=== PATIENT | female | born 1960 | race Caucasian/White ===

== ENCOUNTER 2016-03-23 09:16 | Emergency (ER) | payer MEDICAID ==
[2016-03-23] MEDS ORDERED: LIDOCAINE VISCOUS 2% 15 ML UDC MM STA (09:41)
[2016-03-23] MEDS ORDERED: FAMOTIDINE 20 MG TABLET PO STA (09:41)
[2016-03-23] MEDS ORDERED: IPRATROPIUM/ALBUTEROL 3 ML NEB INH STA (09:41)
[2016-03-23] MEDS ORDERED: SUCRALFATE 1 GM/10 ML UDC PO STA (09:41)
[2016-03-23] MEDS ORDERED: MAG HYDROX/AL HYDROX/SIMETH 30 ML UDC PO STA (09:41)
[2016-03-23] MEDS ORDERED: MAG HYDROX/AL HYDROX/SIMETH 30 ML UDC ONE (09:50)
[2016-03-23] MEDS ORDERED: FAMOTIDINE 20 MG TABLET ONE (09:50)
[2016-03-23] MEDS ORDERED: LIDOCAINE VISCOUS 2% 15 ML UDC MM ONE (09:50)
[2016-03-23] MEDS ORDERED: SUCRALFATE 1 GM/10 ML UDC ONE (09:50)
[2016-03-23] MEDS ORDERED: IPRATROPIUM/ALBUTEROL 3 ML NEB INH ONE (09:52)
[2016-03-23] MEDS ORDERED: LORazepam 2 MG/ML SYRINGE IVP STA (10:37)
[2016-03-23] MEDS ORDERED: SODIUM CHLORIDE 0.9% 1,000 ML IV ONE (10:38)
[2016-03-23] MEDS ORDERED: LORazepam 2 MG/ML SYRINGE ONE (10:52)
[2016-03-23] MEDS ORDERED: KETOROLAC 60 MG/2 ML VIAL IVP STA (11:46)
[2016-03-23] MEDS ORDERED: KETOROLAC 30 MG/ML VIAL ONE (11:49)
[2016-03-23] MEDS ORDERED: chlordiazePOXIDE 25 MG CAPSULE PO STA (12:02)
[2016-03-23] MEDS ORDERED: chlordiazePOXIDE 25 MG CAPSULE PO ONE (12:06)
[2016-03-23] MEDS ORDERED: IOPAMIDOL-300 100 ML VIAL IVP ONE (12:42)
== END 2016-03-23 13:40 | disposition home or self-care (01) ==
DX: R07.89 Other chest pain (principal); Z79.84 Long term (current) use of oral hypoglycemic drugs; F17.200 Nicotine dependence, unspecified, uncomplicated; F10.230 Alcohol dependence with withdrawal, uncomplicated; E11.9 Type 2 diabetes mellitus without complications
CPT/HCPCS: 36415; 71010; 71275; 80053; 80320; 83690; 84484; 85025; 93005; 93010; 94640; 96361; 96374; 96375; 99284; 99285; A9270; J2060; J7620; Q9967

== ENCOUNTER 2016-03-25 10:20 | Outpatient (CLI) | payer MEDICAID | END 2016-03-25 10:21 | disposition home or self-care (01) | DX: F10.20 Alcohol dependence, uncomplicated (principal); E11.9 Type 2 diabetes mellitus without complications ==

== ENCOUNTER 2016-05-20 11:00 | Outpatient (CLI) | payer MEDICAID | END 2016-05-20 11:01 | disposition home or self-care (01) | DX: A04.7 Enterocolitis due to Clostridium difficile (principal); R19.7 Diarrhea, unspecified ==

== ENCOUNTER 2016-08-11 12:27 | Emergency (ER) | payer MEDICAID ==
[2016-08-11] MEDS ORDERED: THIAMINE 100 MG TABLET PO STA (12:43)
[2016-08-11] MEDS ORDERED: ONDANSETRON ODT 4 MG TABLET TL STA (12:43)
--- NOTE | 2016-08-11 12:47 | ED Physician Documentation ---
History of Present Illness - Stated complaint Stated Complaint: L EYE INJ - Chief complaint Chief Complaint: General - History obtained from History obtained from: Patient - History of Present Illness Timing: Other (This is a 55-year-old woman with a history of alcoholism. She quit drinking 2 days ago, 3 days ago she was at her mom's house and fell, she doesn't recall the injury too much but she has a periorbital injury on the left and complains of facial numbness in the periorbital area and upper lip on the left. She is not quite sure of the timing of the numbness, i.e. she doesn't know whether it started immediately after the accident or had gradual onset later. She does complain of alcohol withdrawal shakes but denies headache, hallucinations. She vomited yesterday after taking naltrexone but she hasn't had any hematemesis or melena.) Review of Systems Ten Systems: 10 systems reviewed and negative Constitutional: reports: Fatigue (from poor sleep). 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, Other - Present Medications Home Medications: Ambulatory Orders Medication Instructions Recorded Confirmed Lisinopril [Zestril] 5 mg PO DAILY 11/08/12 03/23/16 Metformin HCl [Glucophage Xr] 1,000 mg PO BID 11/08/12 03/23/16 glipiZIDE [Glucotrol] 10 mg PO BID 11/08/12 03/23/16 Empagliflozin [Jardiance] 10 mg PO DAILY 03/23/16 03/23/16 chlordiazePOXIDE [Librium] 25 mg PO Q6H PRN #10 capsule 03/23/16 Lorazepam [Ativan] 1 mg PO TID PRN #5 tablet 08/11/16 - Allergies Allergies/Adverse Reactions: Allergies Allergy/AdvReac Type Severity Reaction Status Date / Time No Known Drug Allergies Allergy Verified 08/11/16 12:36 - Social History Does the pt smoke?: Yes Smoking Status: Current every day smoker Does the pt drink ETOH?: Yes Does the pt have substance abuse?: No - Immunizations Immunizations are current?: Yes - POLST Patient has POLST: No PD ED PE NORMAL - Vitals Vital signs reviewed: Yes - General General: Alert and oriented X 3, No acute distress, Other (Slightly shaky) - HEENT HEENT: Other (She has very mild scleral icterus but is not overtly jaundice. She has infraorbital bruising and tenderness on the left with diminished but not absent sensation over the distribution of the infraorbital nerve, there is no diminished sensation of the forehead or lateral face. No hemotympanum or evidence of basilar skull fracture. 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, No motor deficit, No sensory deficit, Normal speech - Psych Psych: Normal mood, Normal affect Results - Vitals Vitals: Vital Signs - 24 hr 08/11/16 12:33 Temperature 36.5 C Heart Rate 116 H Respiratory 18 Rate Blood Pressure 161/104 H O2 Saturation 98 Oxygen O2 Source Room air - Rads (name of study) CT facial bones Radiology: EMP read contemporaneously (Comminuted and minimally displaced left orbital floor blowout-type fracture with some soft tissue material protruding through the fracture site, no CT evidence for entrapment.) PD MEDICAL DECISION MAKING - ED course ED course: 55-year-old alcoholic presents with facial trauma and found to have inferior orbital wall fracture on CT and evidence of inferior orbital nerve injury on exam. Case was discussed by phone with Dr. Vipul Ybarra, OMFS at [facility] who felt that she did not need to be seen emergently but they will see her in the clinic. Nasal and sinus precautions were discussed with the patient. They did not recommend antibiotics at this juncture. Departure - Departure Disposition: 01 Home, Self Care Clinical Impression: Orbital floor fracture Qualifiers: Encounter type: initial encounter Fracture type: closed Laterality: left Qualified Code(s): S02.32XA - Fracture of orbital floor, left side, initial encounter for closed fracture Alcohol withdrawal Qualifiers: Complication of substance-induced condition: uncomplicated Qualified Code(s): F10.230 - Alcohol dependence with withdrawal, uncomplicated Condition: Good Instructions: ED Withdrawal Alcohol Prescriptions: Lorazepam [Ativan] 1 mg PO TID PRN #5 tablet PRN Reason: Anxiety Comments: Case was discussed with Dr. Ybarra at [facility], they will call you to arrange a followup appointment with them. If you don't hear from them by Monday, call their office, . Your blood pressure was elevated today on check in to the emergency department. This does not mean that you have hypertension, it is a common phenomenon to check into the emergency department and have elevated blood pressure. I recommend that you see your primary care physician within the week to have it rechecked when you're feeling better.
[2016-08-11] MEDS ORDERED: ONDANSETRON ODT 4 MG TABLET ONE (13:05)
[2016-08-11] MEDS ORDERED: THIAMINE 100 MG TABLET PO ONE (13:05)
--- NOTE | 2016-08-11 13:40 | CT Preliminary Report ---
Exam: CT Facial Bones W/O IMPRESSION: 1. Comminuted minimally displaced left orbital floor blowout type fracture with some adjacent soft ti ssue material protruding through the fracture site. No CT evidence for entrapment of the inferior rec tus. 2. No other fractures. 3. Small amount of soft tissue calcification anterior to the mentum of the mandible, more on the righ t, this is of uncertain consequence. No donor site is identified. [facility] SITE ID: [id number]
--- NOTE | 2016-08-11 13:52 | CT Report ---
EXAM: CT MAXILLOFACIAL WITHOUT CONTRAST EXAM DATE: 08/11/2016 01:07 PM. CLINICAL HISTORY: Left facial injury, orbital fracture? COMPARISONS: None. TECHNIQUE: Thin-section axial images were acquired of the face without contrast. Post-processing: Cor onal and sagittal reformats. Other: None. In accordance with CT protocol optimization, one or more of the following dose reduction techniques w ere utilized for this exam: automated exposure control, adjustment of mA and/or KV based on patient s ize, or use of iterative reconstructive technique. FINDINGS: Bones: Comminuted minimally displaced left orbital floor fracture with some adjacent soft tissue mate rial at the fracture site. No CT evidence for entrapment of the inferior rectus. Please see series 6 image 37. Infraorbital rim, lateral and superior orbital rims, and zygomatic arch have a normal appea cristian. Right orbit, pterygoid plates, and hard palate have a normal appearance. Small amount of soft tissue calcification is seen anterior to the mentum of the mandible on the right side greater than the left. No cortical defects. Temporomandibular Joints: The temporomandibular joints are symmetric and normally located. Sinuses: Normal. No mucosal thickening or fluid levels. Other: None. IMPRESSION: 1. Comminuted minimally displaced left orbital floor blowout-type fracture with some adjacent soft ti ssue material protruding through the fracture site. No CT evidence for entrapment of the inferior rec tus. 2. No other fractures. 3. Small amount of soft tissue calcification anterior to the mentum of the mandible, more on the righ t. This is of uncertain consequence. No donor site is identified. [facility] Referring Provider Line: [phone] SITE ID: [id number]
[2016-08-11 14:36] VITALS: BP 133/95
== END 2016-08-11 14:37 | disposition home or self-care (01) ==
LOC: ED 12:27
DX: S02.32XA Fracture of orbital floor, left side, initial encounter for closed fracture (principal); W01.0XXA Fall on same level from slipping, tripping and stumbling without subsequent striking against object, initial encounter; F10.239 Alcohol dependence with withdrawal, unspecified; I10 Essential (primary) hypertension; E11.9 Type 2 diabetes mellitus without complications; Z79.84 Long term (current) use of oral hypoglycemic drugs; F17.200 Nicotine dependence, unspecified, uncomplicated
CPT/HCPCS: 70486; 99283; 99284; A9270; Q0162

== ENCOUNTER 2017-01-19 06:02 | Emergency (ER) | payer MEDICAID ==
--- NOTE | 2017-01-19 06:21 | ED Physician Documentation ---
PD HPI BACK PAIN - Stated complaint Stated Complaint: BACK/SHOULDER PX - Chief complaint Chief Complaint: Trauma Ch/Bk - History obtained from History obtained from: Patient - History of Present Illness Timing - onset: How many days ago (2) Timing - details: Abrupt onset Pain level now: 5 Location: Left Quality: Pain Associated symptoms: No: Weakness, Numbness Improves with: Rest Worsened by: Movement, Palpation Recently seen: Not recently seen - Additional information Additional information: tripped and fell 2 days ago while hiking on a trail, sudden onset left shoulder pain and left upper back pain. Presents at this time due to gradually worsening pain which kept her from sleeping all night. Review of Systems Cardiac: denies: Chest pain / pressure Respiratory: denies: Dyspnea, Cough GI: denies: Abdominal Pain Musculoskeletal: reports: Back pain, Joint pain. 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, Other - Present Medications Home Medications: Ambulatory Orders Medication Instructions Recorded Confirmed Lisinopril [Zestril] 5 mg PO DAILY 11/08/12 03/23/16 Metformin HCl [Glucophage Xr] 1,000 mg PO BID 11/08/12 03/23/16 glipiZIDE [Glucotrol] 10 mg PO BID 11/08/12 03/23/16 Empagliflozin [Jardiance] 10 mg PO DAILY 03/23/16 03/23/16 chlordiazePOXIDE [Librium] 25 mg PO Q6H PRN #10 capsule 03/23/16 Lorazepam [Ativan] 1 mg PO TID PRN #5 tablet 08/11/16 Cyclobenzaprine [Flexeril] 10 mg PO TID PRN #20 tablet 01/19/17 oxyCODONE [Roxicodone] 5 mg PO Q6H PRN #14 tablet 01/19/17 - Allergies Allergies/Adverse Reactions: Allergies Allergy/AdvReac Type Severity Reaction Status Date / Time acetaminophen [From Vicodin] Allergy Hives Verified 01/19/17 06:10 hydrocodone [From Vicodin] Allergy Hives Verified 01/19/17 06:10 - Social History Does the pt smoke?: Yes Smoking Status: Current every day smoker Does the pt drink ETOH?: Yes Does the pt have substance abuse?: No - Immunizations Immunizations are current?: No Immunizations: TDAP current <10years - POLST Patient has POLST: No PD ED PE NORMAL - Vitals Vital signs reviewed: Yes - General General: Alert and oriented X 3, No acute distress (NAD at rest, but appears to be uncomfortable due to pain with movement involving upper back and/or left shoulder), Well developed/nourished - Neck Neck: No bony TTP - Respiratory Respiratory: No respiratory distress, Clear bilaterally - Back Back: No spinal TTP, Other (tender to palpation left parathoracic region) - Derm Derm: Normal color, Warm and dry PD ED PE EXPANDED - Extremities Extremities: Tenderness, Limited ROM, Left shoulder Results - Vitals Vitals: Vital Signs - 24 hr 01/19/17 01/19/17 06:04 08:05 Temperature 36.0 C L 36.5 C Heart Rate 127 H 107 H Respiratory 16 15 Rate Blood Pressure 130/91 H 135/97 H O2 Saturation 97 99 Oxygen O2 Source Room air - Rads (name of study) chest xray Radiology: Prelim report reviewed, See rad report left shoulder xrays Radiology: Prelim report reviewed, See rad report PD MEDICAL DECISION MAKING - ED course Complexity details: reviewed results, re-evaluated patient, considered differential, d/w patient Departure - Departure Disposition: 01 Home, Self Care Clinical Impression: Shoulder sprain, Contusion of chest wall Condition: Good Instructions: ED Contusion Chest Wall, ED Sprain Shoulder Follow-Up: Theresa Sharp DO [Primary Care Provider] - Prescriptions: Cyclobenzaprine [Flexeril] 10 mg PO TID PRN #20 tablet PRN Reason: Spasms oxyCODONE [Roxicodone] 5 mg PO Q6H PRN #14 tablet PRN Reason: Pain Discharge Date/Time: 01/19/17 08:09
[2017-01-19] MEDS ORDERED: oxyCODONE 5 MG TABLET PO STA ×2 (06:37→07:55)
[2017-01-19] MEDS ORDERED: CYCLOBENZAPRINE 10 MG TABLET PO STA (06:41)
[2017-01-19] MEDS ORDERED: CYCLOBENZAPRINE 10 MG TABLET PO ONE (06:47)
[2017-01-19] MEDS ORDERED: oxyCODONE 5 MG TABLET ONE ×2 (06:47→08:05)
--- NOTE | 2017-01-19 07:17 | XRAY Preliminary Report ---
Exam: XR SHOULDER 3 VIEW LT IMPRESSION: 1. No acute abnormality seen in the shoulder. [facility] SITE ID: [id number]
--- NOTE | 2017-01-19 07:20 | XRAY Preliminary Report ---
Exam: XR CHEST 2 VIEW PA/LAT IMPRESSION: 1. No acute cardiopulmonary abnormality. 2. Old left rib fractures. [facility] SITE ID: [id number]
--- NOTE | 2017-01-19 07:20 | XRAY Report ---
EXAM: LEFT SHOULDER RADIOGRAPHY EXAM DATE: 01/19/2017 07:09 AM. CLINICAL HISTORY: Pain after injury. COMPARISON: None. TECHNIQUE: 3 views. FINDINGS: Bones: No acute fracture seen. Old rib fractures. Joints: No dislocation. Joint spaces appear intact. Soft tissues: Visualized hemithorax is unremarkable. IMPRESSION: 1. No acute abnormality seen in the shoulder. [facility] Referring Provider Line: [phone] SITE ID: [id number]
--- NOTE | 2017-01-19 07:22 | XRAY Report ---
EXAM: CHEST RADIOGRAPHY EXAM DATE: 01/19/2017 07:09 AM. CLINICAL HISTORY: Fall, left back pain. COMPARISON: 03/23/2016. TECHNIQUE: 2 views. FINDINGS: Lungs/Pleura: No alveolar consolidation or pleural effusion seen. No definite pneumothorax. Mediastinum: Heart and mediastinal contours are unremarkable. Other: Old left rib fractures. IMPRESSION: 1. No acute cardiopulmonary abnormality. 2. Old left rib fractures. [facility] Referring Provider Line: [phone] SITE ID: [id number]
[2017-01-19 08:06] VITALS: BP 135/97
== END 2017-01-19 08:09 | disposition home or self-care (01) ==
LOC: ED 06:02
DX: S43.402A Unspecified sprain of left shoulder joint, initial encounter (principal); S20.222A Contusion of left back wall of thorax, initial encounter; W01.0XXA Fall on same level from slipping, tripping and stumbling without subsequent striking against object, initial encounter; Y93.01 Activity, walking, marching and hiking; Y92.821 Forest as the place of occurrence of the external cause; I10 Essential (primary) hypertension; E11.9 Type 2 diabetes mellitus without complications; Z79.84 Long term (current) use of oral hypoglycemic drugs; F17.200 Nicotine dependence, unspecified, uncomplicated
CPT/HCPCS: 71020; 73030; 99283; 99284; A9270

== ENCOUNTER 2017-02-06 20:11 | Outpatient (CLI) | payer MEDICAID | END 2017-02-06 20:12 | disposition critical access hospital (66) | LOC: EMS 20:11 | PROVIDERS: ATTEND Surgery | DX: R42 Dizziness and giddiness (principal) | CPT/HCPCS: A0425; A0427 ==

== ENCOUNTER 2017-02-06 20:22 | Emergency (ER) | payer MEDICAID ==
--- NOTE | 2017-02-06 20:52 | ED Physician Documentation ---
PD HPI SYNCOPE - Stated complaint Stated Complaint: GLF - CHIN LAC - Chief complaint Chief Complaint: General - History obtained from History obtained from: Patient - History of Present Illness Witnessed: Unwitnessed Timing - onset: Today (she got up from sitting and felt lightheaded then fainted. Struck left face as she fell. Was just out briefly then awoke, spouse in next room heard her.) Preceding symptoms: Light headed. No: Headache, Chest pain, Abdominal pain, Nausea / vomiting Associated symptoms: No: Seizure, Incontinant of urine Contributing factors: Decreased PO intake (had not had as much to drink as usual today.), Just stood up, Other (had had a few drinks today, and had been without alcohol for 2-3 weeks.). No: Recent med change Injury occurred: Fell, Head injury (left side of face, and has some left headache as well.) Similar symptoms before: No diagnosis (has had some lightheaded episodes and near fainting/fainting a few times in the past couple of weeks. These were not with exertion per se.) Recently seen: Not recently seen Review of Systems Constitutional: denies: Fever, Chills Nose: denies: Rhinorrhea / runny nose, Congestion Throat: denies: Sore throat Cardiac: denies: Chest pain / pressure, Palpitations Respiratory: denies: Dyspnea, Cough, Wheezing GI: denies: Abdominal Pain, Nausea, Vomiting, Diarrhea Skin: denies: Rash, Lesions, Abrasion (s), Laceration (s) Musculoskeletal: denies: Neck pain, Back pain PD PAST MEDICAL HISTORY - Past Medical History Cardiovascular: Hypertension Respiratory: None Neuro: None Endocrine/Autoimmune: Type 2 diabetes GI: None : None HEENT: None Psych: None Musculoskeletal: Osteoporosis, Chronic back pain Derm: None - Past Surgical History Past Surgical History: Yes 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, Other - Present Medications Home Medications: Ambulatory Orders Medication Instructions Recorded Confirmed Lisinopril [Zestril] 5 mg PO DAILY 11/08/12 03/23/16 Metformin HCl [Glucophage Xr] 1,000 mg PO BID 11/08/12 02/06/17 glipiZIDE [Glucotrol] 10 mg PO BID 11/08/12 02/06/17 Empagliflozin [Jardiance] 10 mg PO DAILY 03/23/16 02/06/17 Potassium Chloride 10 meq PO DAILY #20 tablet.er 02/06/17 - Allergies Allergies/Adverse Reactions: Allergies Allergy/AdvReac Type Severity Reaction Status Date / Time acetaminophen [From Vicodin] Allergy Hives Verified 01/19/17 06:10 hydrocodone [From Vicodin] Allergy Hives Verified 02/06/17 20:26 - Social History Does the pt smoke?: Yes Smoking Status: Current every day smoker Does the pt drink ETOH?: Yes Does the pt have substance abuse?: No - Immunizations Immunizations are current?: No Immunizations: TDAP current <10years - POLST Patient has POLST: No PD ED PE NORMAL - Vitals Vital signs reviewed: Yes - General General: Alert and oriented X 3, No acute distress, Well developed/nourished, Other (left periorbital area with some swelling and mild bruising. No obvious bony deformity. ) - HEENT HEENT: PERRL, EOMI (without diplopia. 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 No: ST elevation c/w ischemia, ST depression - Labs Labs: Laboratory Tests 02/06/17 02/06/17 02/06/17 20:54 20:54 20:54 WBC 9.7 RBC 4.39 Hgb 13.9 Hct 42.0 MCV 95.8 MCH 31.8 H MCHC 33.2 RDW 14.3 Plt Count 345 MPV 7.3 L Neut # 7.6 H Lymph # 1.4 L [place] # 0.6 Eos # 0.1 Baso # 0.1 Absolute Nucleated RBC 0.00 Nucleated RBC % 0.0 Sodium 137 Potassium 2.8 L Chloride 95 L Carbon Dioxide 21 Anion Gap 21.0 H BUN 16 Creatinine 1.1 H Estimated GFR (MDRD) 51 L Glucose 172 H Calcium 9.8 Magnesium 1.8 Total Bilirubin 0.5 AST 29 ALT 18 Alkaline Phosphatase 56 Total Protein 7.1 Albumin 4.2 Globulin 2.9 Albumin/Globulin Ratio 1.4 Lipase 30 TSH Ethyl Alcohol 110.3 02/06/17 20:54 WBC RBC Hgb Hct MCV MCH MCHC RDW Plt Count MPV Neut # Lymph # [place] # Eos # Baso # Absolute Nucleated RBC Nucleated RBC % Sodium Potassium Chloride Carbon Dioxide Anion Gap BUN Creatinine Estimated GFR (MDRD) Glucose Calcium Magnesium Total Bilirubin AST ALT Alkaline Phosphatase Total Protein Albumin Globulin Albumin/Globulin Ratio Lipase TSH 2.08 Ethyl Alcohol - Rads (name of study) face and head CT Radiology: Prelim report reviewed (no acute fractures nor bleeding.) PD MEDICAL DECISION MAKING - ED course Complexity details: reviewed results (does have low potassium, could account for some symptoms of weakness/lightheaded. ), considered differential, d/w patient Departure - Departure Disposition: 01 Home, Self Care Clinical Impression: Hypokalemia Syncope Qualifiers: Syncope type: unspecified Qualified Code(s): R55 - Syncope and collapse Facial contusion Qualifiers: Encounter type: initial encounter Qualified Code(s): S00.83XA - Contusion of other part of head, initial encounter Chin laceration Qualifiers: Encounter type: initial encounter Qualified Code(s): S01.81XA - Laceration without foreign body of other part of head, initial encounter Condition: Stable Record reviewed to determine appropriate education?: Yes Instructions: ED Potassium Deficiency, ED Laceration Facial Skin Glue, ED Fainting Unkn Cause Follow-Up: Theresa Sharp DO [Primary Care Provider] - Prescriptions: Potassium Chloride 10 meq PO DAILY #20 tablet.er Comments: Stay well-hydrated. Minimal to no alcohol use. Increase potassium in your diet and take a potassium supplement daily for the next couple of weeks. I think your fainting was related to blood pressure not responding to change in position from hydration and low potassium. Recheck if recurring episodes as these are corrected. The tape on the chin laceration should fall off on its own after for 5 days and that should be sufficient for the wound to stay together. Tylenol or ibuprofen if needed for fevers and pains. The rest of the bruising and swelling should decrease over a few days. Follow-up with your primary care in about a week, call for an appointment. Discharge Date/Time: 02/06/17 23:56
[2017-02-06 21:11] LABS: BASOPHILS # (AUTO) 0.1 10^3/uL (0.0-0.1); BASOPHILS % (AUTO) 0.7 %; EOSINOPHILS # (AUTO) 0.1 10^3/uL (0.0-0.7); EOSINOPHILS % (AUTO) 0.9 %; HGB - HEMOGLOBIN 13.9 g/dL (12.0-16.0); LYMPHOCYTES # (AUTO) 1.4 10^3/uL (1.5-3.5); LYMPHOCYTES % (AUTO) 14.1 %; MEAN CORPUSCULAR HEMOGLOBIN 31.8 pg (27.0-31.0); MEAN CORPUSCULAR HGB CONC 33.2 g/dL (32.0-36.0); MEAN CORPUSCULAR VOLUME 95.8 fL (81.0-99.0); MEAN PLATELET VOLUME 7.3 fL (7.9-10.8); MONOCYTES # (AUTO) 0.6 10^3/uL (0.0-1.0); MONOCYTES % (AUTO) 6.6 %; NEUTROPHILS # (AUTO) 7.6 10^3/uL (1.5-6.6); NEUTROPHILS % (AUTO) 77.7 %; RED BLOOD COUNT 4.39 10^6/uL (4.20-5.40); RED CELL DISTRIBUTION WIDTH 14.3 % (12.0-15.0); UNCORRECTED WHITE BLOOD COUNT 9.7 x10^3/uL; WHITE BLOOD COUNT 9.7 x10^3/uL (4.8-10.8)
[2017-02-06] MEDS ORDERED: SODIUM CHLORIDE 0.9% 1,000 ML IV ONE (21:31)
[2017-02-06] MEDS ORDERED: IBUPROFEN 600 MG TABLET PO STA (21:32)
[2017-02-06 21:35] LABS: ALBUMIN/GLOBULIN RATIO 1.4 (1.0-2.2); BILIRUBIN,TOTAL 0.5 mg/dL (0.2-1.0); CALCIUM 9.8 mg/dL (8.5-10.3); CREATININE 1.1 mg/dL (0.4-1.0); POTASSIUM 2.8 mmol/L (3.5-5.0); TOTAL PROTEIN 7.1 g/dL (6.7-8.2)
[2017-02-06] MEDS ORDERED: IBUPROFEN 600 MG TABLET PO ONE (21:40)
[2017-02-06 21:43] LABS: MAGNESIUM 1.8 mg/dL (1.7-2.8)
[2017-02-06 21:57] VITALS: BP 127/72
--- NOTE | 2017-02-06 22:06 | CT Preliminary Report ---
Exam: CT HEAD W/O IMPRESSION: 1. No acute intracranial process. 2. Small right parietal scalp laceration without calvarial fracture. [facility] SITE ID: [id number]
--- NOTE | 2017-02-06 22:12 | CT Preliminary Report ---
Exam: CT FACIAL BONES W/O IMPRESSION: 1. No acute facial bone fracture. 2. Chronic fracture of the inferior left orbital wall. [facility] SITE ID: [id number]
--- NOTE | 2017-02-06 22:15 | CT Report ---
EXAM: CT HEAD EXAM DATE: 02/06/2017 09:54 PM. CLINICAL HISTORY: Head pain, fall, syncope. COMPARISON: None. TECHNIQUE: Multiaxial CT images were obtained from the foramen magnum to the vertex. Reformats: Coron al. IV contrast: None. In accordance with CT protocol optimization, one or more of the following dose reduction techniques w ere utilized for this exam: automated exposure control, adjustment of mA and/or KV based on patient s ize, or use of iterative reconstructive technique. FINDINGS: Parenchyma: No intraparenchymal hemorrhage. No evidence of mass, midline shift, or CT findings of inf arction. Starks-white differentiation is distinct. Extraaxial Spaces: Normal for age. No subdural or epidural collections identified. Ventricles: Normal in size and position. Sinuses and Orbits: Imaged paranasal sinuses, orbits, and mastoids show no significant abnormality. Bones: A small right parietal scalp hematoma is noted without an underlying calvarial fracture. IMPRESSION: 1. No acute intracranial process. 2. Small right parietal scalp laceration without calvarial fracture. [facility] Referring Provider Line: [phone] SITE ID: [id number]
--- NOTE | 2017-02-06 22:19 | CT Report ---
EXAM: CT MAXILLOFACIAL WITHOUT CONTRAST EXAM DATE: 02/06/2017 09:55 PM. CLINICAL HISTORY: Facial pain, fall, syncope. COMPARISONS: Facial bone CT from 08/11/2016. TECHNIQUE: Thin-section axial images were acquired of the face without contrast. Post-processing: Cor onal and sagittal reformats. Other: None. In accordance with CT protocol optimization, one or more of the following dose reduction techniques w ere utilized for this exam: automated exposure control, adjustment of mA and/or KV based on patient s ize, or use of iterative reconstructive technique. FINDINGS: Soft Tissue: No mass or fluid collection.The infratemporal fossa and parapharyngeal spaces are unrema rkable. Orbits: No acute intraorbital injury is identified. Bones: No acute facial bone fracture is identified. A now chronic fracture of the inferior left orbit al wall is seen. Temporomandibular Joints: The temporomandibular joints are symmetric and normally located. Sinuses: Normal. No mucosal thickening or fluid levels. IMPRESSION: 1. No acute facial bone fracture. 2. Chronic fracture of the inferior left orbital wall. [facility] Referring Provider Line: [phone] SITE ID: [id number]
[2017-02-06] MEDS ORDERED: POTASSIUM BICARB 25 MEQ TABLET PO STA (22:26)
[2017-02-06] MEDS ORDERED: POTASSIUM CHLOR 10 MEQ/100 ML 10 MEQ/100 ML BAG IV ONE ×2 (22:26→22:34)
[2017-02-06] MEDS ORDERED: POTASSIUM BICARB 25 MEQ TABLET PO ONE (22:40)
== END 2017-02-06 23:56 | disposition home or self-care (01) ==
LOC: EDUNIT# → ED 20:22
DX: S00.83XA Contusion of other part of head, initial encounter (principal); S01.81XA Laceration without foreign body of other part of head, initial encounter; R55 Syncope and collapse; E11.9 Type 2 diabetes mellitus without complications; Z79.84 Long term (current) use of oral hypoglycemic drugs; F17.200 Nicotine dependence, unspecified, uncomplicated; E87.6 Hypokalemia
CPT/HCPCS: 36415; 70450; 70486; 80053; 80320; 83690; 83735; 84443; 85025; 93005; 96361; 96365; 99284; A9270

== ENCOUNTER 2018-02-22 13:00 | Outpatient (CLI) | payer MEDICAID | END 2018-02-22 13:01 | disposition critical access hospital (66) | LOC: EMS 13:00 | PROVIDERS: ATTEND Surgery | DX: F10.129 Alcohol abuse with intoxication, unspecified (principal) | CPT/HCPCS: A0425; A0429 ==

== ENCOUNTER 2018-04-23 09:11 | Outpatient (CLI) | payer MEDICAID ==
--- NOTE | 2018-04-23 15:02 | XRAY Report ---
Reason: LOW BACK PAIN,CHRONIC LEG LENGTH DISCREPANCY Procedure Date: 04/23/2018 Accession Number: [id number] / [id number] Procedure: XR - Lumbar Spine 2 View CPT Code: FULL RESULT: EXAM: LUMBOSACRAL SPINE RADIOGRAPHY EXAM DATE: 04/23/2018 09:33 AM. CLINICAL HISTORY: Low back pain. COMPARISONS: XR ACUTE ABDOMEN SERIES 05/16/2006 11:11 AM. TECHNIQUE: 3 views. FINDINGS: Alignment: Minimal left convex curvature centered at L2-L3. No spondylolisthesis. Bones: Five [id number] lumbar vertebral bodies are present. No fractures or bone lesions. Disks: Mild endplate degenerative changes at L2-L3 and L3-L4. Moderate disk height loss at L5-S1. Facets: No significant degenerative changes. Sacroiliac Joints: Unremarkable. Soft Tissues: Mild atherosclerotic calcifications within the aorta. The visualized bowel gas pattern is normal. IMPRESSION: 1. Moderate disk degeneration at L5-S1. 2. Mild degenerative changes at L2-L3 and L3-L4. 3. No acute bony abnormality. [facility]
--- NOTE | 2018-04-23 16:42 | XRAY Report ---
Reason: LOW BACK PAIN,CHRONIC LEG LENGTH DISCREPANCY Procedure Date: 04/23/2018 Accession Number: [id number] / [id number] Procedure: XR - Bone Length Study CPT Code: FULL RESULT: EXAM: LEG LENGTH RADIOGRAPHY EXAM DATE: 04/23/2018 09:43 AM. CLINICAL HISTORY: Low back pain, chronic leg length discrepancy. COMPARISON: None. TECHNIQUE: A CT machine was used to obtain a tipple oiler image from the pelvic brim to the feet for the purpose of having a single radiographic image demonstrating length of the bilateral lower extremity long bones. FINDINGS: The study is limited by nonweightbearing technique and low resolution inherent to the tipple oiler images. Bones: No fractures or bone lesion, limited sensitivity. Joints: No subluxations on these single views of the joints, limited sensitivity. Leg length measurements are as follows: Right Le.6 cm, Left Le.9 cm. Right Femur: 43.9 cm, Left Femur: 44.4 cm. Right Tibia: 36.4 cm, Left Tibia: 35.0 cm. Please note that differences in tibia length may be due to technical reasons related to orthopedic hardware in the right distal tibia. IMPRESSION: Limited study: No significant overall leg length difference is detected on this nonweightbearing exam. RADIA
== END 2018-04-23 09:12 | disposition home or self-care (01) ==
LOC: DI 09:11
PROVIDERS: ATTEND Family Medicine
DX: M51.36 Other intervertebral disc degeneration, lumbar region (principal); M51.37 Other intervertebral disc degeneration, lumbosacral region; M21.70 Unequal limb length (acquired), unspecified site
CPT/HCPCS: 72100; 77073

== ENCOUNTER 2018-06-14 08:19 | Outpatient (CLI) | payer MEDICAID ==
--- NOTE | 2018-06-14 08:40 | XRAY Report ---
Reason: NECK PAIN,CHRONIC Procedure Date: 06/14/2018 Accession Number: [id number] / [id number] Procedure: WCP - Cervical Spine 2 View CPT Code: FULL RESULT: EXAM: CERVICAL SPINE RADIOGRAPHY EXAM DATE: 06/14/2018 08:29 AM. CLINICAL HISTORY: NECK PAIN, CHRONIC. COMPARISONS: None. TECHNIQUE: 3 views. FINDINGS: Alignment: Loss of normal cervical lordosis. Minimal kyphosis centered at C5. Bones: No evidence of depression fracture. Disks: Moderate disk height narrowing at C5-C6 with 2 mm C6 anterolisthesis. Mild disk height narrowing at C6-C7 without subluxation. Minimal disk height narrowing at C7-T1 with 3 mm of T1 retrolisthesis. Facets: Multilevel vertebral joint and facet arthropathy from C5-T1 Soft Tissues: Normal. No prevertebral soft tissue swelling. The visualized lung apices are clear. IMPRESSION: 1. No acute abnormality. 2. Minimal kyphosis centered at C5. 3. Multilevel degenerative disk disease and facet arthropathy as discussed above. Minimal multilevel spondylolisthesis as described above. RADIA
== END 2018-06-14 08:20 | disposition home or self-care (01) ==
LOC: DI.WCP 08:19
PROVIDERS: ATTEND Family Medicine
DX: M50.30 Other cervical disc degeneration, unspecified cervical region (principal); M43.12 Spondylolisthesis, cervical region; M40.202 Unspecified kyphosis, cervical region
CPT/HCPCS: 72040

== ENCOUNTER 2018-07-16 15:50 | Outpatient (CLI) | payer MEDICAID ==
[2018-07-16 19:13] LABS: CALCIUM 9.3 mg/dL (8.5-10.3); CREATININE 0.7 mg/dL (0.4-1.0)
[2018-07-16 20:14] LABS: HEMOGLOBIN A1C 0.72 g/dL; HEMOGLOBIN A1C % 6.9 % (4.6-6.2)
== END 2018-07-16 23:59 | disposition home or self-care (01) ==
LOC: LAB.WCP 15:50
PROVIDERS: ATTEND Family Medicine
DX: E11.9 Type 2 diabetes mellitus without complications (principal)
CPT/HCPCS: 36415; 80048; 82043; 83036

== ENCOUNTER 2018-08-09 13:59 | Outpatient (CLI) | payer MEDICAID ==
--- NOTE | 2018-08-09 14:26 | XRAY Report ---
Reason: THORACIC BACK PAIN Procedure Date: 08/09/2018 Accession Number: [id number] / [id number] Procedure: WCP - Thoracic Spine 2 View CPT Code: FULL RESULT: EXAM: THORACIC SPINE RADIOGRAPHY EXAM DATE: 08/09/2018 02:11 PM. CLINICAL HISTORY: THORACIC BACK PAIN. COMPARISON: CHEST 2 VIEW PA/LAT 01/19/2017 6:57 AM. TECHNIQUE: 2 views. FINDINGS: Alignment: Mild S-shaped scoliosis unchanged compared to 2017. Bones: Mild rash compression fracture of 1 of the midthoracic vertebral bodies, approximately T8, unchanged compared to 2017. The bony finding. No suspicious bone lesions. Disks: Normal. Disk heights are maintained. Soft Tissues: Normal. The visualized lungs and cardiomediastinal silhouette are normal. IMPRESSION: 1. No acute finding. 2. No change in mild T8 compression fracture and mild S-shaped thoracolumbar scoliosis. RADIA
== END 2018-08-09 14:00 | disposition home or self-care (01) ==
LOC: DI.WCP 13:59
PROVIDERS: ATTEND Family Medicine
DX: M54.6 Pain in thoracic spine (principal); M41.84 Other forms of scoliosis, thoracic region
CPT/HCPCS: 72070

== ENCOUNTER 2018-08-24 15:32 | Outpatient (CLI) | payer MEDICAID ==
--- NOTE | 2018-08-27 09:40 | Mammography Report ---
Reason: ANNUAL SCREENING Procedure Date: 08/24/2018 Accession Number: [id number] / [id number] Procedure: GLORIA - Screening Mammo Dig Bilat CPT Code: FULL RESULT: EXAM: Screening Mammo Dig Bilat DATE: 08/24/2018 4:13 PM CLINICAL HISTORY: Nulliparous patient history of left breast biopsy. TECHNIQUE: (B) - Bilateral CC and MLO views were obtained. COMPARISON: 10/10/2014, 10/24/2013, 02/08/2012 and 04/23/2009 PARENCHYMAL PATTERN: (D) - The breasts demonstrate heterogeneously dense fibroglandular parenchyma bilaterally. FINDINGS: No significant interval change. There are no suspicious masses, calcifications, or areas of distortion. IMPRESSION: Negative examination. BI-RADS category 1. RECOMMENDATION: (ANNUAL) - Recommend routine annual screening mammography. BI-RADS CATEGORY: (1) - Negative. STANDARD QUALIFYING STATEMENTS: 1. This examination was not reviewed with the aid of Computer-Aided Detection (CAD). 2. A negative or benign imaging report should not preclude biopsy if clinically suspicious findings are present. 3. Dense breasts may obscure an underlying neoplasm. 4. This examination was reviewed without the aid of 3D breast imaging (tomosynthesis).
== END 2018-08-24 15:33 | disposition home or self-care (01) ==
LOC: DI 15:32
PROVIDERS: ATTEND Family Medicine
DX: Z12.31 Encounter for screening mammogram for malignant neoplasm of breast (principal)
CPT/HCPCS: 77067

== ENCOUNTER 2018-09-14 03:03 | Emergency (ER) | payer MEDICAID ==
[2018-09-14] MEDS ORDERED: KETOROLAC 30 MG/ML VIAL IVP STA (04:00)
--- NOTE | 2018-09-14 04:35 | XRAY Report ---
Reason: Fall on R side, now have R sided rib px Procedure Date: 09/14/2018 Accession Number: [id number] / [id number] Procedure: XR - Chest 2 View X-Ray CPT Code: 75246 FULL RESULT: EXAM: CHEST RADIOGRAPHY EXAM DATE: 09/14/2018 03:39 AM. CLINICAL HISTORY: Fall, right-sided pain. COMPARISON: CHEST 1 VIEW 03/23/2016 10:06 AM, CHEST 2 VIEW PA/LAT 01/19/2017 6:57 AM, CHEST 2 VIEW PA/LAT 03/08/2018 11:08 AM, THORACIC SPINE 2 VIEW 08/09/2018 1:54 PM. TECHNIQUE: 2 views. FINDINGS: Lungs/Pleura: There is a subtle oblong opacity projecting over the right apex, in between the posterior portions of the right third and fourth ribs. This is new from the prior examination. This is difficult to characterize on this exam. Mediastinum: Heart and mediastinal contours are unremarkable. Other: Right-sided chronic calcific rotator cuff tendinitis. Left-sided rib fractures are seen. A BB marker was placed over the right lower hemithorax posteriorly. No underlying displaced fracture seen at this time. Multilevel degenerative changes within the spine. Mild superior endplate compression fracture of T8 vertebral body is again seen. IMPRESSION: 1. No definite acute bony abnormality noted. 2. [place] opacity projecting over the right apex, measuring 2.3 x 1.0 cm. This may represent artifact or an underlying lung lesion. Follow-up nonemergent contrast-enhanced chest CT recommended for further assessment. RADIA
[2018-09-14 04:39] VITALS: BP 108/83
--- NOTE | 2018-09-14 04:48 | ED Physician Documentation ---
PD HPI TRUNK INJURY - Stated complaint Stated Complaint: RIB PAIN - Chief complaint Chief Complaint: Trauma Ch/Bk - History obtained from History obtained from: Patient - History of Present Illness Location: Posterior chest Type of injury: Fall Timing - onset: Today Timing - duration: Hours Timing - details: Abrupt onset, Still present Quality: Pain, Spasm, Sharp Improved by: Rest Worsened by: Moving, Palpating Associated symtptoms: No: Weakness, Numbness, Tingling Contributing factors: No: Anticoagulated Where injury occured: Home Similar symptoms before: Diagnosis (rib fracture) Recently seen: Not recently seen - Additional information Additional information: 57-year-old female with a history of hypertension and type 2 diabetes had been drinking earlier this evening and she fell on her deck striking her right posterior chest wall against the railing. She is come in now with complaints of acute pain to the area. Review of Systems Constitutional: denies: Fever Ears: denies: Ear pain Nose: denies: Congestion Cardiac: reports: Chest pain / pressure Respiratory: reports: Dyspnea. denies: Cough GI: denies: Vomiting PD PAST MEDICAL HISTORY - Past Medical History Past Medical History: Yes Cardiovascular: Hypertension Respiratory: None Neuro: None Endocrine/Autoimmune: Type 2 diabetes GI: None DATABASE MANAGEMENT SYSTEM SPECIALIST: None : None HEENT: None Psych: None Musculoskeletal: Osteoporosis, Chronic back pain Derm: None - Past Surgical History Past Surgical History: Yes Ortho: Other /DATABASE MANAGEMENT SYSTEM SPECIALIST: Oophrectomy, Other - Present Medications Home Medications: Ambulatory Orders Medication Instructions Recorded Confirmed Lisinopril [Zestril] 5 mg PO DAILY 11/08/12 03/23/16 Metformin HCl [Glucophage Xr] 1,000 mg PO BID 11/08/12 02/06/17 glipiZIDE [Glucotrol] 10 mg PO BID 11/08/12 02/06/17 Empagliflozin [Jardiance] 10 mg PO DAILY 03/23/16 02/06/17 Potassium Chloride 10 meq PO DAILY #20 tablet.er 02/06/17 Lorazepam [Ativan] 1 mg PO Q6HR PRN #8 tablet 02/23/18 Hydrocodone/Acetaminophen 1 - 2 each PO Q6H PRN #14 tablet 09/14/18 [Hydrocodon-Acetaminophen 5-325] - Allergies Allergies/Adverse Reactions: Allergies Allergy/AdvReac Type Severity Reaction Status Date / Time No Known Drug Allergies Allergy Verified 09/14/18 03:13 - Social History Does the pt smoke?: Yes Smoking Status: Current every day smoker Does the pt drink ETOH?: Yes Does the pt have substance abuse?: No - Immunizations Immunizations are current?: No Immunizations: TDAP current <10years - POLST Patient has POLST: No PD ED PE NORMAL - Vitals Vital signs reviewed: Yes (hypertensive ) - General General: Alert and oriented X 3, Well developed/nourished, Other (appears intoxicated ) - HEENT HEENT: Atraumatic, PERRL, EOMI - Neck Neck: Supple, no meningeal sign, No bony TTP - Cardiac Cardiac: RRR, No murmur - Respiratory Respiratory: No respiratory distress, Clear bilaterally, Other (There is a bruise with fresh ecchymosis to the right posterolateral chest wall with surrounding tenderness reproducing the symptoms the patient came to the ED for ) - Abdomen Abdomen: Soft, Non tender, No organomegaly - Back Back: No CVA TTP, No spinal TTP - Derm Derm: Normal color, Warm and dry, No rash - Extremities Extremities: No deformity, No edema, No calf tenderness / cord - Neuro Neuro: Alert and oriented X 3, product development coordinator 2-12 intact, No motor deficit, No sensory deficit, Normal speech Eye Opening: Spontaneous Motor: Obeys Commands Verbal: Oriented GCS Score: 15 - Psych Psych: Normal mood, Normal affect Results - Vitals Vitals: Vital Signs - 24 hr 09/14/18 09/14/18 09/14/18 03:05 03:21 03:42 Temperature 36.2 C L Heart Rate 75 75 Respiratory 16 19 17 Rate Blood Pressure 168/97 H 105/76 O2 Saturation 97 96 100 09/14/18 04:37 Temperature Heart Rate 79 Respiratory 16 Rate Blood Pressure 108/83 H O2 Saturation 100 Oxygen O2 Source Room air Oxygen Flow Rate 3 - Rads (name of study) chest Radiology: Prelim report reviewed (Impression: 1. No definite acute bony abnormality noted. [place] opacity projecting over the right apex, measuring 2.3 x 1 cm. This may represent artifact or an underlying lung lesion. Follow-up nonemergent contrast-enhanced chest CT recommended for further assessment.), EMP read indepedently, See rad report PD MEDICAL DECISION MAKING - ED course Complexity details: reviewed old records, reviewed results, re-evaluated patient, considered differential, d/w patient ED course: 57-year-old female with a chest wall contusion has no evidence of fracture on x- ray examination. She has no pneumothorax she is administered some Toradol intravenously. Departure - Departure Disposition: 01 Home, Self Care Clinical Impression: Contusion of chest wall Qualifiers: Encounter type: initial encounter Laterality: right Qualified Code(s): S20.211A - Contusion of right front wall of thorax, initial encounter Condition: Stable Instructions: ED Contusion Chest Wall, ED Contusion Vs Minor Fx Rib Follow-Up: Theresa Sharp DO [Primary Care Provider] - Prescriptions: Hydrocodone/Acetaminophen [Hydrocodon-Acetaminophen 5-325] 1 - 2 each PO Q6H PRN #14 tablet PRN Reason: pain Comments: Today the radiologist has indicated there may be some artifact on your x-ray and this will require follow-up with your regular doctor.
[2018-09-14] MEDS ORDERED: HYDROcod/ACET 5/325 Prepack 4 PO STA (05:06)
== END 2018-09-14 05:22 | disposition home or self-care (01) ==
LOC: EDUNIT# → ED 03:03
DX: S20.211A Contusion of right front wall of thorax, initial encounter (principal); W19.XXXA Unspecified fall, initial encounter; Y93.89 Activity, other specified; Y92.008 Other place in unspecified non-institutional (private) residence as the place of occurrence of the external cause; I10 Essential (primary) hypertension; E11.9 Type 2 diabetes mellitus without complications; F17.200 Nicotine dependence, unspecified, uncomplicated; Z79.84 Long term (current) use of oral hypoglycemic drugs
CPT/HCPCS: 71046; 96374; 99284

== ENCOUNTER 2018-09-27 11:51 | Outpatient (CLI) | payer MEDICAID ==
[2018-09-27 12:30] LABS: CREATININE 0.6 mg/dL (0.4-1.0)
[2018-09-27] MEDS ORDERED: IOVERSOL 320 100 ML VIAL IVP ONE ×2 (13:26→16:38)
--- NOTE | 2018-09-28 10:36 | CT Report ---
Reason: LUNG NODULE Procedure Date: 09/27/2018 Accession Number: [id number] / [id number] Procedure: CT - CHEST W CPT Code: FULL RESULT: EXAM: CT CHEST EXAM DATE: 09/27/2018 01:39 PM. CLINICAL HISTORY: LUNG NODULE. COMPARISONS: CHEST ANGIO 03/23/2016 12:32 PM CHEST 2 VIEW 09/14/2018 3:23 AM. TECHNIQUE: Routine helical CT imaging was performed through the chest. IV contrast: None. Reconstructions: Coronal and sagittal. In accordance with CT protocol optimization, one or more of the following dose reduction techniques were utilized for this exam: automated exposure control, adjustment of mA and/or KV based on patient size, or use of iterative reconstructive technique. FINDINGS: Lungs/Pleura: There is no consolidation or effusion. No suspicious noncalcified nodules are seen. Specifically, there are no CT abnormalities corresponding to the opacity seen on comparison radiograph. There is no evidence of subpleural reticulation or architectural distortion. No central airway abnormalities. No pneumothorax. Mediastinum: Normal. No adenopathy or masses. The heart and great vessels are normal. Bones: There are bilateral rib fractures. Posterior right fractures demonstrate mild displacement and may be subacute. No acute bony abnormalities are seen. Visualized Abdomen: The visualized portions of the upper abdominal organs demonstrate no acute abnormalities. Other: None. IMPRESSION: 1. No acute or chronic pulmonary CT process. 2. No CT findings corresponding to the opacity noted on recent radiograph. 3. Normal heart size. 4. There are healing right posterior rib fractures and remote left-sided rib fractures. RADIA
== END 2018-09-27 11:52 | disposition home or self-care (01) ==
LOC: LAB 11:51 → DI 11:52
PROVIDERS: ATTEND Family Medicine
DX: R91.1 Solitary pulmonary nodule (principal); S22.41XD Multiple fractures of ribs, right side, subsequent encounter for fracture with routine healing
CPT/HCPCS: 36415; 71260; 82565; Q9967

== ENCOUNTER 2018-11-16 14:14 | Emergency (ER) | payer MEDICAID ==
[2018-11-16 14:28] VITALS: BP 97/78
[2018-11-16] MEDS ORDERED: IBUPROFEN 800 MG TABLET PO STA (15:33)
--- NOTE | 2018-11-16 15:47 | XRAY Report ---
Reason: Left ankle injury; tenderness at lateral malleolus Procedure Date: 11/16/2018 Accession Number: [id number] / [id number] Procedure: XR - Ankle 3 View LT CPT Code: FULL RESULT: EXAM: LEFT ANKLE RADIOGRAPHY EXAM DATE: 11/16/2018 03:22 PM HISTORY: Left ankle injury; tenderness at lateral malleolus COMPARISON: NONE TECHNIQUE: AP, lateral and oblique, 3 views FINDINGS: Positive for distal fibular oblique fracture at the level of the ankle mortise and extending superiorly. Minimal distraction. Probable small fragment avulsion fracture at the medial malleolus as well. No apparent posterior malleolar fracture. Normal ankle mortise alignment. No joint effusion. Mild lateral soft tissue swelling. IMPRESSION: Bimalleolar fractures. RADIA
--- NOTE | 2018-11-16 16:08 | ED Physician Documentation ---
PD HPI LOWER EXT INJURY - Stated complaint Stated Complaint: LT FOOT INJ - Chief complaint Chief Complaint: Heent - History obtained from History obtained from: Patient - History of Present Illness PD HPI LOW EXT INJURY LOCATION: Left, Ankle Type of injury: Twist Where injury occurred: Home Timing - onset: How many days ago (3) Worsened by: Moving, Other (Weight bearing) Associated symptoms: Swelling, Discolored Contributing factors: Prior ortho surgery (Bunionectomy) - Additional information Additional information: The patient is a 58-year-old female who twisted her left ankle when she slipped on wet bathroom floor 3 days ago. She presents now because of ongoing pain with weightbearing. She denies any other injuries. Review of Systems Constitutional: denies: Fever Nose: denies: Congestion Throat: denies: Sore throat Cardiac: denies: Chest pain / pressure Respiratory: denies: Dyspnea, Cough GI: denies: Abdominal Pain, Nausea, Vomiting : denies: Dysuria Skin: denies: Rash, Abrasion (s) Musculoskeletal: reports: Joint pain (left ankle), Joint swelling (left ankle), Pain with weight bearing. denies: Back pain Neurologic: denies: Focal weakness, Numbness, Headache, Head injury PD PAST MEDICAL HISTORY - Past Medical History Past Medical History: Yes Cardiovascular: Hypertension Respiratory: None Neuro: None Endocrine/Autoimmune: Type 2 diabetes GI: None REGISTRATION REPRESENTATIVE: None : None HEENT: None Psych: None Musculoskeletal: Osteoporosis, Chronic back pain Derm: None - Past Surgical History Past Surgical History: Yes Ortho: Other /REGISTRATION REPRESENTATIVE: Oophrectomy, Other - Present Medications Home Medications: Ambulatory Orders Medication Instructions Recorded Confirmed Lisinopril [Zestril] 5 mg PO DAILY 11/08/12 03/23/16 Metformin HCl [Glucophage Xr] 1,000 mg PO BID 11/08/12 02/06/17 glipiZIDE [Glucotrol] 10 mg PO BID 11/08/12 02/06/17 Empagliflozin [Jardiance] 10 mg PO DAILY 03/23/16 02/06/17 Potassium Chloride 10 meq PO DAILY #20 tablet.er 02/06/17 Lorazepam [Ativan] 1 mg PO Q6HR PRN #8 tablet 02/23/18 Hydrocodone/Acetaminophen 1 - 2 each PO Q6H PRN #14 tablet 09/14/18 [Hydrocodon-Acetaminophen 5-325] Hydrocodone/Acetaminophen 1 - 2 each PO Q6H PRN #14 tablet 11/16/18 [Hydrocodon-Acetaminophen 5-325] - Allergies Allergies/Adverse Reactions: Allergies Allergy/AdvReac Type Severity Reaction Status Date / Time No Known Drug Allergies Allergy Verified 11/16/18 14:23 - Social History Does the pt smoke?: Yes Smoking Status: Current every day smoker Does the pt drink ETOH?: Yes Does the pt have substance abuse?: No - Immunizations Immunizations are current?: No Immunizations: TDAP current <10years - POLST Patient has POLST: No PD ED PE NORMAL - Vitals Vital signs reviewed: Yes (Initially tachycardic.) - General General: Alert and oriented X 3, Well developed/nourished - HEENT HEENT: Atraumatic - Neck Neck: No bony TTP - Cardiac Cardiac: Other (Slightly rapid rate, regular rhythm.) - Respiratory Respiratory: No respiratory distress, Clear bilaterally - Back Back: No spinal TTP - Derm Derm: No rash - Extremities Extremities: No calf tenderness / cord, Other (There is swelling and ecchymosis at the lateral aspect of the left ankle, with associated tenderness to palpation at the posterior aspect of the lateral malleolus. There is no significant tenderness to palpation at the medial malleolus, the fifth metatarsal base, or the proximal fibula. Distal neurovascular is intact.) - Neuro Neuro: Alert and oriented X 3, No motor deficit, No sensory deficit Results - Vitals Vitals: Oxygen O2 Source Room air - Rads (name of study) Left ankle Radiology: Prelim report reviewed, EMP read contemporaneously, See rad report (Distal fibular oblique fracture at the level of the ankle mortise and extending superiorly. Minimal distraction. Probable small fragment a avulsion fracture at the medial malleolus as well. No apparent posterior malleolar fracture. Normal ankle mortise alignment. No joint effusion.) Procedures - Splint (location) left ankle Splint applied by: Physician Type of splint: Fiberglass, Posterior, Stirrup Other: Patient tolerated well, No complications, Neurovascular intact, Crutches provided PD MEDICAL DECISION MAKING - ED course Complexity details: reviewed results, re-evaluated patient, considered differential, d/w patient ED course: The patient's presentation is significant for a nondisplaced left bimalleolar fracture, with fracture of the distal fibula, and small avulsion fragment of the medial malleolus. There is no displacement or joint effusion seen on x-ray. Treatment in the emergency department included application of posterior and stirrup splint. Crutches were dispensed. The patient declined administration of ibuprofen. She is being discharged with prescription for Vicodin, 14 tablets. I discussed with her the expected course of injury, the importance of orthopedic follow-up, as well as potentially worrisome signs or symptoms that should prompt reevaluation in the emergency department. Departure - Departure Disposition: 01 Home, Self Care Clinical Impression: Closed left ankle fracture Qualifiers: Encounter type: initial encounter Qualified Code(s): S82.892A - Other fracture of left lower leg, initial encounter for closed fracture Condition: Stable Instructions: ED Splint Care Fiberglass, ED Fx Ankle Lateral Malleolus Follow-Up: [facility] [Provider Group] Theresa Sharp DO [Primary Care Provider] - Prescriptions: Hydrocodone/Acetaminophen [Hydrocodon-Acetaminophen 5-325] 1 - 2 each PO Q6H PRN #14 tablet PRN Reason: pain Comments: Keep the splint dry. Keep your left leg elevated as much of the time as possible. Apply ice pack intermittently. Use crutches when ambulating. Follow-up with orthopedic clinic as soon as possible next week. Call to schedule an appointment. Return to the emergency department if you develop markedly increasing pain, or otherwise worsening symptoms. Discharge Date/Time: 11/16/18 16:21
== END 2018-11-16 16:21 | disposition home or self-care (01) ==
LOC: ED 14:14
DX: S82.845A Nondisplaced bimalleolar fracture of left lower leg, initial encounter for closed fracture (principal); X50.1XXA Overexertion from prolonged static or awkward postures, initial encounter; Y93.E8 Activity, other personal hygiene; Y92.002 Bathroom of unspecified non-institutional (private) residence as the place of occurrence of the external cause; I10 Essential (primary) hypertension; E11.9 Type 2 diabetes mellitus without complications; Z79.84 Long term (current) use of oral hypoglycemic drugs; F17.200 Nicotine dependence, unspecified, uncomplicated
CPT/HCPCS: 29515

== ENCOUNTER 2019-01-16 07:00 | Outpatient (CLI) | payer MEDICAID ==
[2019-01-16 13:10] LABS: BASOPHILS % (AUTO) 0.8 %; EOSINOPHILS # (AUTO) 0.1 10^3/uL (0.0-0.7); EOSINOPHILS % (AUTO) 2.9 %; HGB - HEMOGLOBIN 12.5 g/dL (12.0-16.0); LYMPHOCYTES # (AUTO) 1.5 10^3/uL (1.5-3.5); LYMPHOCYTES % (AUTO) 38.6 %; MEAN CORPUSCULAR HEMOGLOBIN 32.5 pg (27.0-31.0); MEAN CORPUSCULAR HGB CONC 32.7 g/dL (32.0-36.0); MEAN CORPUSCULAR VOLUME 99.2 fL (81.0-99.0); MEAN PLATELET VOLUME 10.8 fL (7.9-10.8); MONOCYTES # (AUTO) 0.3 10^3/uL (0.0-1.0); MONOCYTES % (AUTO) 8.5 %; NEUTROPHILS # (AUTO) 1.9 10^3/uL (1.5-6.6); NEUTROPHILS % (AUTO) 48.9 %; PLT - PLATELET COUNT 154 10^3/uL (130-450); RED BLOOD COUNT 3.85 10^6/uL (4.20-5.40); RED CELL DISTRIBUTION WIDTH 13.7 % (12.0-15.0); WHITE BLOOD COUNT 3.8 x10^3/uL (4.8-10.8)
[2019-01-16 16:25] LABS: ALBUMIN 4.2 g/dL (3.2-5.5); ALBUMIN/GLOBULIN RATIO 1.8 (1.0-2.2); ALKALINE PHOSPHATASE 55 IU/L (42-121); ALT ALANINE AMINOTRANSFERASE 51 IU/L (10-60); AST ASPARTATE AMINOTRANSFERASE 56 IU/L (10-42); BILIRUBIN,TOTAL 0.7 mg/dL (0.2-1.0); BUN - BLOOD UREA NITROGEN 16 mg/dL (6-20); CALCIUM 9.7 mg/dL (8.5-10.3); CARBON DIOXIDE - CO2 30 mmol/L (21-32); CHLORIDE 95 mmol/L (101-111); CHOL/HDL RATIO 1.8 (<4.4); CHOLESTEROL 136 mg/dL; CREATININE 0.7 mg/dL (0.4-1.0); GFR - MDRD 86 (>89); GLUCOSE 126 mg/dL (70-100); HDL CHOLESTEROL 76 mg/dL; SODIUM 134 mmol/L (135-145); TOTAL PROTEIN 6.6 g/dL (6.7-8.2)
[2019-01-16 17:29] LABS: HB2 TOTAL 12.8 g/dL; HEMOGLOBIN A1C 0.56 g/dL; HEMOGLOBIN A1C % 6.2 % (4.6-6.2)
== END 2019-01-16 23:59 | disposition home or self-care (01) ==
LOC: LAB.WCP 07:00
PROVIDERS: ATTEND Family Medicine
DX: E11.9 Type 2 diabetes mellitus without complications (principal)
CPT/HCPCS: 36415; 80053; 80061; 83036; 83721; 84443; 85025

== ENCOUNTER 2019-07-18 08:00 | Outpatient (CLI) | payer MEDICAID ==
[2019-07-18 13:18] LABS: HB2 TOTAL 13.7 g/dL; HEMOGLOBIN A1C 0.69 g/dL; HEMOGLOBIN A1C % 6.8 % (4.6-6.2)
[2019-07-18 13:42] LABS: ALBUMIN/GLOBULIN RATIO 1.4 (1.0-2.2); ALKALINE PHOSPHATASE 51 IU/L (42-121); ALT ALANINE AMINOTRANSFERASE 43 IU/L (10-60); AST ASPARTATE AMINOTRANSFERASE 39 IU/L (10-42); BILIRUBIN,TOTAL 0.6 mg/dL (0.2-1.0); BUN - BLOOD UREA NITROGEN 15 mg/dL (6-20); CALCIUM 9.3 mg/dL (8.5-10.3); CARBON DIOXIDE - CO2 28 mmol/L (21-32); CHLORIDE 104 mmol/L (101-111); CHOL/HDL RATIO 1.9 (<4.4); CHOLESTEROL 152 mg/dL; CREATININE 0.7 mg/dL (0.4-1.0); GLUCOSE 109 mg/dL (70-100); HDL CHOLESTEROL 81 mg/dL; SODIUM 139 mmol/L (135-145); TOTAL PROTEIN 6.9 g/dL (6.7-8.2)
== END 2019-07-18 23:59 | disposition home or self-care (01) ==
LOC: LAB.WCP 08:00
PROVIDERS: ATTEND Family Medicine
DX: E11.9 Type 2 diabetes mellitus without complications (principal)
CPT/HCPCS: 36415; 80053; 80061; 83036; 83721

== ENCOUNTER 2019-09-05 16:00 | Outpatient (CLI) | payer MEDICAID | END 2019-09-05 23:59 | disposition home or self-care (01) | LOC: LAB.R 16:00 | PROVIDERS: ATTEND Family Medicine | DX: R31.9 Hematuria, unspecified (principal) | CPT/HCPCS: 87086; 87181 ==

== ENCOUNTER 2019-12-25 15:55 | Outpatient (CLI) | payer MEDICAID | END 2019-12-25 15:56 | disposition critical access hospital (66) | LOC: EMS 15:55 | PROVIDERS: ATTEND Surgery | DX: R07.9 Chest pain, unspecified (principal); R06.02 Shortness of breath | CPT/HCPCS: A0425; A0427; A0999 ==

== ENCOUNTER 2019-12-25 16:07 | Observation (INO) | payer MEDICAID ==
[2019-12-25] MEDS ORDERED: LACTATED RINGERS 1,000 ML IV ONE (16:34)
--- NOTE | 2019-12-25 16:39 | XRAY Report ---
PROCEDURE: Chest 1 View X-Ray INDICATIONS: Chest Pain TECHNIQUE: One view of the chest was acquired. COMPARISON: CT chest 09/27/2018 FINDINGS: Surgical changes and devices: None. Lungs and pleura: No pleural effusions or pneumothorax. Lungs are clear. Mediastinum: Mediastinal contours appear normal. Heart size is normal. Bones and chest wall: No suspicious bony lesions. Overlying soft tissues appear unremarkable. IMPRESSION: Normal for age, source of current symptoms is not seen. Reviewed by: Dimas Deshpande MD on 12/25/2019 4:38 PM PDT Approved by: Dimas Deshpande MD on 12/25/2019 4:38 PM PDT Station ID: [id number]
[2019-12-25 16:54] LABS: BASOPHILS % (AUTO) 0.7 %; EOSINOPHILS # (AUTO) 0.2 10^3/uL (0.0-0.7); EOSINOPHILS % (AUTO) 2.8 %; HGB - HEMOGLOBIN 12.9 g/dL (12.0-16.0); LYMPHOCYTES # (AUTO) 0.7 10^3/uL (1.5-3.5); LYMPHOCYTES % (AUTO) 11.8 %; MEAN CORPUSCULAR HEMOGLOBIN 33.9 pg (27.0-31.0); MEAN CORPUSCULAR HGB CONC 32.7 g/dL (32.0-36.0); MEAN CORPUSCULAR VOLUME 103.4 fL (81.0-99.0); MEAN PLATELET VOLUME 9.4 fL (7.9-10.8); MONOCYTES # (AUTO) 0.2 10^3/uL (0.0-1.0); MONOCYTES % (AUTO) 3.8 %; NEUTROPHILS # (AUTO) 4.7 10^3/uL (1.5-6.6); NEUTROPHILS % (AUTO) 80.6 %; PLT - PLATELET COUNT 153 10^3/uL (130-450); RED BLOOD COUNT 3.81 10^6/uL (4.20-5.40); RED CELL DISTRIBUTION WIDTH 16.2 % (12.0-15.0); WHITE BLOOD COUNT 5.8 x10^3/uL (4.8-10.8)
--- NOTE | 2019-12-25 16:54 | ED Physician Documentation ---
History of Present Illness - Stated complaint Stated Complaint: ETOH/CP - Chief complaint Chief Complaint: General - Additonal information Additional information: 59-year-old woman with past medical history of high blood pressure, diabetes t ype 2, chronic alcoholism with frequent falls presents with chest pain sudden onset prior to arrival while lying in bed. aching, substernal nonradiating, moderate severity, now resolved. Patient states she was unable to get out of bed secondary to weakness. She called EMS at that time. On arrival fingerstick glucose found to be in 40s, improving after 1 amp of D50. Patient also hypotensive with systolic in the 80s, improved to 110 systolic status post 400 cc IV fluids. Endorses drinking one fourth a gallon of vodka today. did not take her diabetes medication today. Review of Systems Unable to obtain: Intoxicated Ten Systems: 10 systems reviewed and negative Constitutional: denies: Fever, Chills Cardiac: reports: Chest pain / pressure (CP resolved prior to arrival to ed) PD PAST MEDICAL HISTORY - Past Medical History Cardiovascular: Hypertension Respiratory: None Neuro: None Endocrine/Autoimmune: Type 2 diabetes GI: None LOT WORKER: None : None HEENT: None Psych: None Musculoskeletal: Osteoporosis, Scoliosis, Chronic back pain Derm: None - Past Surgical History Past Surgical History: Yes Ortho: Other /LOT WORKER: Oophrectomy, Other - Present Medications Home Medications: Ambulatory Orders Medication Instructions Recorded Confirmed Metformin HCl [Glucophage Xr] 1,000 mg PO BID 11/08/12 02/06/17 glipiZIDE [Glucotrol] 10 mg PO BID 11/08/12 02/06/17 lisinopriL [Zestril] 5 mg PO DAILY 11/08/12 03/23/16 Empagliflozin [Jardiance] 10 mg PO DAILY 03/23/16 02/06/17 Potassium Chloride 10 meq PO DAILY #20 tablet.er 02/06/17 Lorazepam [Ativan] 1 mg PO Q6HR PRN #8 tablet 02/23/18 Hydrocodone/Acetaminophen 1 - 2 each PO Q6H PRN #14 tablet 09/14/18 [Hydrocodon-Acetaminophen 5-325] Hydrocodone/Acetaminophen 1 - 2 each PO Q6H PRN #14 tablet 11/16/18 [Hydrocodon-Acetaminophen 5-325] - Allergies Allergies/Adverse Reactions: Allergies Allergy/AdvReac Type Severity Reaction Status Date / Time No Known Drug Allergies Allergy Verified 12/25/19 16:19 - Social History Does the pt smoke?: Yes Smoking Status: Current every day smoker Does the pt drink ETOH?: Yes ETOH Use: Liquor Does the pt have substance abuse?: No - Immunizations Immunizations are current?: No Immunizations: TDAP current <10years - POLST Patient has POLST: No PD ED PE NORMAL - Vitals Vital signs reviewed: Yes - General General: Alert and oriented X 3 - HEENT HEENT: PERRL, EOMI - Neck Neck: Supple, no meningeal sign, No JVD - Cardiac Cardiac: RRR - Respiratory Respiratory: No respiratory distress, Clear bilaterally - Abdomen Abdomen: Soft, Non tender, Non distended - Back Back: No spinal TTP - Derm Derm: Normal color - Extremities Extremities: No edema - Neuro Neuro: Alert and oriented X 3 - Psych Psych: Other (clinically intoxicated) Results - Vitals Vitals: Vital Signs - 24 hr 12/25/19 12/25/19 16:09 16:31 Temperature 36.3 C L Heart Rate 95 Respiratory 14 Rate Blood Pressure 107/55 L Oxygen O2 Source Room air - EKG (time done) No standard instances Rate: Rate (enter#) (95) Rhythm: NSR [place]: Normal Intervals: Normal [place] QRS: Normal Ischemia: Normal ST segments - Labs Labs: Laboratory Tests 12/25/19 16:47 WBC 5.8 RBC 3.81 L Hgb 12.9 Hct 39.4 MCV 103.4 H MCH 33.9 H MCHC 32.7 RDW 16.2 H Plt Count 153 MPV 9.4 Neut # (Auto) 4.7 Lymph # (Auto) 0.7 L [place] # (Auto) 0.2 Eos # (Auto) 0.2 Baso # (Auto) 0.0 Absolute Nucleated RBC 0.00 Nucleated RBC % 0.0
[2019-12-25 17:07] LABS: ALBUMIN 3.7 g/dL (3.2-5.5); ALBUMIN/GLOBULIN RATIO 1.4 (1.0-2.2); BILIRUBIN,TOTAL 1.2 mg/dL (0.2-1.0); CALCIUM 8.1 mg/dL (8.5-10.3); TOTAL PROTEIN 6.3 g/dL (6.7-8.2)
[2019-12-25] MEDS ORDERED: SODIUM CHLORIDE FLUSH 0.9% 10 ML SYRINGE IVP PRN (18:20)
[2019-12-25] MEDS ORDERED: ONDANSETRON 4 MG/2 ML VIAL IVP PRN (18:20)
[2019-12-25] MEDS: PRENATAL VITAMIN TABLET PO SCH (19:19)
[2019-12-25] MEDS: THIAMINE 100 MG TABLET PO SCH (19:20)
[2019-12-25] MEDS: DEXTROSE 5%-0.45% NACL 1,000 ML IV SCH (19:20)
[2019-12-25] MEDS ORDERED: chlordiazePOXIDE 5 MG CAPSULE PO SCH ×2 (21:00→22:49)
[2019-12-25] MEDS ORDERED: INSULIN REGULAR HUMAN 300 UNIT/3 ML VIAL SUBQ SCH (21:00)
[2019-12-25] MEDS: INSULIN GLARGINE 300 UNIT/3 ML PEN SUBQ SCH (21:32)
--- NOTE | 2019-12-25 23:00 | HISTORY & PHYSICAL EXAMINATION ---
Chief Complaint - Chief Complaint Chief Complaint: Lower extremity weakness <Jennie Luke - Last Filed: 12/26/19 04:51> History of Present Illness - Admitted From Admitted From:: Home/ED - History Obtained From History obtained from: Patient Exam Limitations: None <Jennie Luke - Last Filed: 12/26/19 04:51> - History of Present Illness HPI Comment/Other: Patient is a 59-year old female with a longstanding history of alcohol abuse, hypertension, and type 2 diabetes who presents to the ED via EMS with weakness. Patient reports drinking a pint of vodka this morning at home and was "drunk and felt extremely weak" this afternoon and "could not stand up or walk", which prompted her to called 911. On arrival to the ED, she complained of having substernal chest pain, which she now denies having or experienced ever having earlier. A set of troponin was done and found it to be slightly elevated at 28, recheck was 31. However, no ECG was done in the ED. Patient does endorse having bilateral musculoskeletal rib pain instead. She associate it with her falling which she said has been happening frequently when she drinks. CXR was done and results were unremarkable. She was apparently intoxicated in the ED with an ethyl alcohol level of 340. She denies being intoxicated right now and is able to answer questions appropriately. She reports having a headache, feeling nauseous, and shaky. Denies fever or chills. Unintentional weight loss of about 15-20 pounds in the last year. She attributes this to not eating because of drinking. Patient denies sore throat but has a chronic cough most likely from being a smoker. No chest pain, palpitations, edema, orthopnea. She is nauseous and vomits frequently from drinking. No hematemesis or history of esophageal varices. Admits having occasional constipation and diarrhea and noticed melena yesterday. She states this has happened before when she drinks for a few days straight and usually resolves when she stops drinking. No hematuria. Does not h ave a history of seizure or stroke. No numbness, tingling, or weakness. Patient tells me she started drinking when she was 15. Her family (both parents, siblings, aunts, and uncles) have a strong history of alcoholism. CAGE score is 4. She admits having an alcohol problem and knows she should cut down. She has been in treatment 4 times in the past and was in AA groups but has never quit for more than a year. She reports drinking daily, about a fifth or a pint of hard alcohol a day. Her drinking has increased since her mother last . She expresses a desire to quit drinking. Will communicate with social work tomorrow to see her. 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 Social History Notes: Patient currently lives with her in [place]. She is not employed and was just approved for physical disability. Patient has a step-daughter. Patient started drinking when she was 15. She admits to drinking a fifth or a pint everyday and smokes about 10 cigarette a day. Denies any illcit drug use. - Substance History Use: Uses substance without health or social issues: Tobacco, Alcohol Use Issues: Intoxication Abuse: Recurrent use of substance despite neg consequences: Alcohol Abuse Issues: Intoxication Dependence: Experiences withdrawal or developed tolerances: Alcohol Dependence Issues: Intoxication, Hallucinations, Withdrawal (Feels shaky, tremorous, diaphoretic, headache, hallucinations) - POLST Patient has POLST: No POLST Status: Full Code <Jennie Luke - Last Filed: 12/26/19 04:51> Meds/Allgy <Jennie Luke - Last Filed: 12/26/19 04:51> <Kamala Noonan - Last Filed: 12/26/19 04:56> - Home Medications Home Medications: Ambulatory Orders Medication Instructions Recorded Confirmed Metformin HCl [Glucophage Xr] 1,000 mg PO BID 11/08/12 02/06/17 glipiZIDE [Glucotrol] 10 mg PO BID 11/08/12 02/06/17 lisinopriL [Zestril] 5 mg PO DAILY 11/08/12 03/23/16 Empagliflozin [Jardiance] 10 mg PO DAILY 03/23/16 02/06/17 Potassium Chloride 10 meq PO DAILY #20 tablet.er 02/06/17 Lorazepam [Ativan] 1 mg PO Q6HR PRN #8 tablet 02/23/18 Hydrocodone/Acetaminophen 1 - 2 each PO Q6H PRN #14 tablet 09/14/18 [Hydrocodon-Acetaminophen 5-325] Hydrocodone/Acetaminophen 1 - 2 each PO Q6H PRN #14 tablet 11/16/18 [Hydrocodon-Acetaminophen 5-325] - Allergies Allergies/Adverse Reactions: Allergies Allergy/AdvReac Type Severity Reaction Status Date / Time No Known Drug Allergies Allergy Verified 12/25/19 16:19 Review of Systems - Constitutional Constitutional: reports: Weakness (General weakness when drinking), Poor appetite, Diaphoresis (When withdrawing from alcohol), Weight loss (lost about 15-20 pounds in the past year, most likely from not eating due to drinking). denies: Fever, Chills - Eyes Eyes: denies: Blurred vision, Vision loss - Ears, Nose & Throat Ears, Nose & Throat: denies: Hearing loss, Nasal congestion, Sore throat - Cardiovascular Cariovascular: denies: Irregular heart rate, Palpitations, Chest pain, Edema, Lightheadedness, Syncope, Exertional dyspnea, Decr. exercise tolerance, Orthopnea - Respiratory Respiratory: reports: Cough (Chronic from smoking). denies: Wheezing, Hemop tysis, Orthopnea, SOB at rest, SOB with exertion, Pleuritic pain - Gastrointestinal Gastrointestinal: reports: Constipation, Diarrhea, Black stools (reported melena yesterday. Has experience this before when drinking for consecutive days.), Nausea, Vomiting, Poor appetite. denies: Abdominal pain, Abdominal distention, Rectal bleeding, Bloody stools, Sin blood emesis, Coffee grounds emesis, Reflux/heartburn, Bloating - Genitourinary Genitourinary: denies: Dysuria, Frequency, Urgency, Hematuria - Musculoskeletal Musculoskeletal: reports: Muscle pain, Back pain, Other (bilateral rib pain) - Integumentary Integumentary: denies: Rash, Pruritis, Lesions - Neurological Neurological: reports: Headache. denies: General weakness, Dizziness, Numbness, Seizures - Psychiatric Psychiatric: reports: Anxiety. denies: Depression, Suicidal, Delusions, Homicidal - Endocrine Endocrine: denies: Polyuria, Polydypsia, Polyphagia, Intolerance to cold, Intolerance to heat - Hematologic/Lymphatic Hematologic/Lymphatic: denies: Anemia, Bruising - All Other Systems All Other Systems: reports: Reviewed and negative <Jennie Luke - Last Filed: 12/26/19 04:51> Exam - Vital Signs Reviewed Vital Signs: Yes - Physical Exam General Appearance: positive: Anxious, Other (Patient is AAOx3. Tremorous with shaky hands. She appears mildly anxious.) Eyes Bilateral: positive: Normal inspection, PERRL, Conjunctivae nml ENT: positive: ENT inspection nml Neck: positive: Nml inspection, Thyroid nml, No JVD, Trachea midline Respiratory: positive: No respiratory distress, Breath sounds nml. negative: Wheezes, Rales, Rhonchi Cardiovascular: positive: Tachycardia. negative: No murmur, No gallop, Irregularly irregular, Systolic murmur, Diastolic murmur, Gallop/S3, Gallop/S4, Friction rub Peripheral Pulses: positive: 2+ Abdomen: positive: Non-tender, Nml bowel sounds. negative: No distention, Guarding, Rebound, Abnml bowel sounds Skin: positive: Color nml, No rash, Warm, Diaphoresis. negative: Skin rash Extremities: positive: Non-tender, Nml appearance, No pedal edema Neurologic/Psychiatric: positive: Oriented x3, Sensation nml <Jennie Luke - Last Filed: 12/26/19 04:51> - Vital Signs Vital Signs: Vital Signs x48h Temp Pulse Pulse Resp BP BP Pulse Ox 12/25/19 20:55 37.3 C 114 H 20 130/62 94 12/25/19 18:53 36.9 C 118 H 16 126/81 H 98 12/25/19 18:30 125/92 H 12/25/19 18:00 101 H 14 107/71 12/25/19 17:30 95 28 H 107/71 93 12/25/19 17:00 91 22 96/63 98 12/25/19 16:31 36.3 C L 12/25/19 16:30 105 H 18 110/61 94 12/25/19 16:09 95 14 107/55 L - Physical Exam Comments/Other: Reproducible bilateral rib pain on palpation, no bruising, redness, or swelling noted. (Jennie Luke) Conclusion/Plan - Problem List (1) Weakness Conclusion/Plan: Generalized weakness most likely due to hypoglycemia, orthostatic hypotension, and malnourished from the lack of PO intake from excessive daily alcohol consumption. Patient admits to not drinking water or eating enough. Blood sugar was in the 40s upon arrival to the ED and received an amp of D50. Recheck blood sugar is in the 190s. 400cc of NS bolus given for hypotension which was resolved thereafter. Plan is to continue IV maintenance fluid overnight and encourage PO intake. Discussed with patient regarding not skipping meals and enough water at home. (2) Chest pain Conclusion/Plan: It was noted in the ED note that patient was experiencing substernal chest pain. However, when interviewing patient, she denies having any chest pain and does not recall having chest pain. Rather, she complains of bilateral lower rib pain that is reproducible with palpitation. She states she has been falling when intoxicated. But no bruising, redness, or swelling seen upon physical exam. No radiating pain noted. Troponin was elevated at 28 in the ED, recheck was 31. Will trend troponin in the AM. ECG was done at midnight as it was not ordered in the ED. ECG shows no ST or T wave changes and is unremarkable. Will reschedule stress test to be done in the outpatient setting instead. Will move forward with an echo tomorrow morning. Qualifiers: Chest pain type: intercostal pain Qualified Code(s): R07.82 - Intercostal pain (3) Alcoholic intoxication Conclusion/Plan: Had a long discussion with patient regarding her alcohol use. She admits to drinking a pint of vodka daily and has been doing so for many weeks. She will stop drinking for a few days occasionally but has not been doing so because of withdraw symptoms. She expresses a desire to quit drinking but has gone through treatment in the past without any success. Will contact social work to help get her connected to resources she needs. Qualifiers: Complication of substance-induced condition: uncomplicated Qualified Code(s): F10.920 - Alcohol use, unspecified with intoxication, uncomplicated (4) Alcohol withdrawal Conclusion/Plan: Patient is experiencing mild tremor, shakiness, and anxiety. She states her last drink was at noon and knows she will be going through withdraw. She received PO folic acid and thiamine and will continue this after discharge. Odansetron given earlier for nausea. She is currently receiving Librium Q 6 hours. Will order PRN Ativan for withdrawal symptoms as well. Metoprolol ordered for tachycardia. Qualifiers: Complication of substance-induced condition: uncomplicated Qualified Code(s): F10.230 - Alcohol dependence with withdrawal, uncomplicated (5) Diabetes Conclusion/Plan: Blood sugar is in the 190s. Insulin ordered and given per protocol. It is recommended that she discontinue metformin as her drinking will increase her risk of developing lactic acidosis. Will discuss with patient and have her talk to her PCP regarding this change. She may continue her home dose empagloflozin and glipizide. Qualifiers: Diabetes mellitus type: type 2 (6) Hypertension Conclusion/Plan: Restart lisinopril tomorrow morning. Will continue to monitor BP throughout the night. (7) OBDULIA (acute kidney injury) Conclusion/Plan: Patient's Cr is 2.0 from 0.7 previously. This is most likely due to dehydration. Will continue maintenance IVF and encourage PO intake as tolerated. Plan is to redraw Cr level this morning. - Lab Results Lab results reviewed: Yes Franklin Bones: 12/25/19 16:47 12/25/19 16:47 - EKG Results EKG Comparison: No prior EKG <Jennie Luke - Last Filed: 12/26/19 04:51> - Problem List (1) Weakness Conclusion/Plan: I personally interviewed and evaluated the patient today before and after DNP student saw the patient. I have reviewed the DNP documentation including patient history, physical examination, laboratory, imaging and other test results. I have also reviewed the clinical assessment and treatment plan. I have discussed the management with the patient and with DNP and agree with the documentation. No changes. - Lab Results Franklin Bones: 12/25/19 16:47 12/25/19 16:47 <Kamala Noonan - Last Filed: 12/26/19 04:56> Core Measures - Anticipated LOS I expect patient to be DC'd or transferred within 96 hours.: Yes - DVT/VTE - Prophylaxis VTE/DVT Device ordered at admit?: Yes VTE/DVT Prophylaxis med ordered at admit?: No Not Ordered - Medical Reason: Not indicated - Stroke - Rehab Assessment Rehab services assessment to be ordered?: No Not Ordered - Medical Reason: Not indicated - AMI - Statin at Admit Aspirin Prescribed on Admit: No Not Ordered - Medical Reason: Not indicated <Jennie Luke - Last Filed: 12/26/19 04:51>
[2019-12-26] MEDS: SODIUM CHLORIDE FLUSH 0.9% 10 ML SYRINGE IVP SCH ×3 (00:04→17:36)
[2019-12-26] MEDS: chlordiazePOXIDE 5 MG CAPSULE PO SCH ×4 (02:50→20:37)
[2019-12-26] MEDS: METOPROLOL TARTRATE 25 MG TABLET PO SCH ×3 (02:50→20:37)
[2019-12-26] MEDS: LORazepam 2 MG/ML VIAL IVP PRN ×5 (03:18→20:40)
[2019-12-26] MEDS: DEXTROSE 5%-0.45% NACL 1,000 ML IV SCH (05:12)
[2019-12-26 05:44] LABS: BASOPHILS % (AUTO) 0.6 %; EOSINOPHILS % (AUTO) 0.9 %; HGB - HEMOGLOBIN 10.6 g/dL (12.0-16.0); LYMPHOCYTES # (AUTO) 1.3 10^3/uL (1.5-3.5); LYMPHOCYTES % (AUTO) 27.5 %; MEAN CORPUSCULAR HEMOGLOBIN 34.3 pg (27.0-31.0); MEAN CORPUSCULAR HGB CONC 35.3 g/dL (32.0-36.0); MEAN CORPUSCULAR VOLUME 97.1 fL (81.0-99.0); MEAN PLATELET VOLUME 9.2 fL (7.9-10.8); MONOCYTES # (AUTO) 0.4 10^3/uL (0.0-1.0); MONOCYTES % (AUTO) 8.3 %; NEUTROPHILS # (AUTO) 2.9 10^3/uL (1.5-6.6); NEUTROPHILS % (AUTO) 62.5 %; PLT - PLATELET COUNT 100 10^3/uL (130-450); RED BLOOD COUNT 3.09 10^6/uL (4.20-5.40); RED CELL DISTRIBUTION WIDTH 15.3 % (12.0-15.0); WHITE BLOOD COUNT 4.7 x10^3/uL (4.8-10.8)
[2019-12-26 05:54] LABS: CALCIUM 8.5 mg/dL (8.5-10.3); CREATININE 0.8 mg/dL (0.4-1.0); MAGNESIUM 1.7 mg/dL (1.7-2.8); PHOSPHORUS 2.8 mg/dL (2.5-4.6)
[2019-12-26] MEDS ORDERED: INSULIN REGULAR HUMAN 300 UNIT/3 ML VIAL SUBQ SCH (06:00)
[2019-12-26] MEDS ORDERED: POTASSIUM CHLORIDE 20 MEQ TABLET PO ONE (08:00)
[2019-12-26] MEDS ORDERED: METOPROLOL 5 MG/5 ML VIAL IVP PRN (08:20)
[2019-12-26 08:21] LABS: ALBUMIN 3.4 g/dL (3.2-5.5); ALBUMIN/GLOBULIN RATIO 1.6 (1.0-2.2); BILIRUBIN,TOTAL 1.2 mg/dL (0.2-1.0); CALCIUM 8.5 mg/dL (8.5-10.3); CREATININE 0.8 mg/dL (0.4-1.0); TOTAL PROTEIN 5.5 g/dL (6.7-8.2)
[2019-12-26] MEDS: PRENATAL VITAMIN TABLET PO SCH (08:56)
[2019-12-26] MEDS: THIAMINE 100 MG TABLET PO SCH (09:00)
[2019-12-26] MEDS: lisinopriL 5 MG TABLET PO SCH (09:00)
[2019-12-26] MEDS ORDERED: hydrALAZINE INJ 20 MG/ML VIAL IVP PRN (10:58)
--- NOTE | 2019-12-26 12:51 | PROVIDER PROGRESS NOTE ---
Assessment/Plan - Problem List (1) Chest pain Qualifiers: Chest pain type: intercostal pain Qualified Code(s): R07.82 - Intercostal pain Assessment/Plan: Patient deny chest pain, EKG show no evidence of ST variation. Troponin now is in the flat. patient present some hand shaking and restless which was likely from patient alcohol withdrawal. Continue radiation monitor patient, continue vital signs monitor patient, continue metoprolol for patient initiated hypertension and tachycardia. (2) hypoglycemia Conclusion/Plan: pt was found to have Blood sugar was in the 40s upon arrival to the ED and the pt was received an amp of D50. Recheck blood sugar is in the 190s. Patient has a history of diabetic. We will continue banana bag with glucose, Will resume patient diet.Continue glucose check with ACHS (3) Alcohol withdrawal Conclusion/Plan: Patient is still experiencing mild tremor, shakiness, and anxiety. She states her last drink was at noon and knows she will be going through withdraw. We will continue CIWA protocol, we will add banana bag for patient, Discussed with the patient and advised the patient quitted alcohol. (4) Diabetes Conclusion/Plan: Patient has a history diabetic, we will begin slide scale, check A1c, continue hypoglycemia protocol (5) Hypertension Conclusion/Plan: stable now, continue home BP meds, and continue Metoprolol, and hydralazine as needed (6) OBDULIA (acute kidney injury) resolved. Creatinine is 0.8 on today. (7) elevated liver enzyme Patient has elevated liver enzyme, it is likely caused by patient alcohol abuse. 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 - Current Meds Current Meds: Current Medications Generic Name Dose Route Start Last Admin Trade Name Freq PRN Reason Stop Dose Admin Chlordiazepoxide HCl 5 mg 12/26/19 03:00 12/26/19 09:05 Librium PO 5 mg Q6H THERESE Administration Insulin Glargine 10 unit 12/25/19 21:00 12/25/19 21:32 Lantus Solostar SUBQ 10 unit QPM THERESE Administration Lisinopril 5 mg 12/26/19 09:00 12/26/19 09:00 Zestril PO 5 mg DAILY THERESE Administration Lorazepam 1 mg 12/26/19 03:01 12/26/19 10:43 Ativan Inj (Vial) IVP 1 mg Q30M PRN Administration CIWA >8 Protocol Metoprolol Tartrate 25 mg 12/26/19 02:00 12/26/19 10:17 Lopressor PO 25 mg BID THERESE Administration Ondansetron HCl 4 mg 12/25/19 18:20 12/26/19 00:15 Zofran Inj IVP 4 mg Q6HR PRN Administration Nausea / Vomiting Multivit/Folic Acid/Iron 1 tab 12/25/19 19:00 12/26/19 08:56 Trinatal Rx 1 PO 1 tab DAILYWM THERESE Administration Sodium Chloride 10 ml 12/26/19 01:00 12/26/19 09:04 Normal Saline Flush 0.9% IVP Not Given 0100,0900,1700 THERESE Thiamine HCl 100 mg 12/25/19 18:22 12/26/19 09:00 Vitamin B-1 PO 100 mg DAILY THERESE Administration - Lab Result Fish Bone Diagrams: 12/26/19 05:29 12/26/19 05:29 - Additional Planning My Orders: My Active Orders 12/26/19 10:58 hydrALAZINE INJ [Apresoline Inj] 10 mg IVP Q4H PRN 12/26/19 Lunch Soft (Low Fiber) Diet [DIET] 12/27/19 05:00 CMP [COMPREHENSIVE METABOLIC PANEL] [CHEM] DAILYLAB 12/28/19 05:00 CMP [COMPREHENSIVE METABOLIC PANEL] [CHEM] DAILYLAB 12/29/19 05:00 CMP [COMPREHENSIVE METABOLIC PANEL] [CHEM] DAILYLAB 12/30/19 05:00 CMP [COMPREHENSIVE METABOLIC PANEL] [CHEM] DAILYLAB Subjective - Subjective Patient Reports: Feeling Better Objective Vital Signs: Vital Signs - 24 hr 12/25/19 12/25/19 12/25/19 16:09 16:30 16:31 Temperature 36.3 C L Heart Rate 95 105 H Heart Rate [ Brachial] Heart Rate [ Monitoring electrodes] Respiratory 14 18 Rate Blood Pressure 107/55 L 110/61 Blood Pressure [Left Brachial artery] Blood Pressure [Right Brachial artery] O2 Saturation 94 12/25/19 12/25/19 12/25/19 17:00 17:30 18:00 Temperature Heart Rate 91 95 101 H Heart Rate [ Brachial] Heart Rate [ Monitoring electrodes] Respiratory 22 28 H 14 Rate Blood Pressure 96/63 107/71 107/71 Blood Pressure [Left Brachial artery] Blood Pressure [Right Brachial artery] O2 Saturation 98 93 12/25/19 12/25/19 12/25/19 18:30 18:53 20:55 Temperature 36.9 C 37.3 C Heart Rate Heart Rate [ Brachial] Heart Rate [ 118 H 114 H Monitoring electrodes] Respiratory 16 20 Rate Blood Pressure 125/92 H Blood Pressure [Left Brachial artery] Blood Pressure 126/81 H 130/62 [Right Brachial artery] O2 Saturation 98 94 12/26/19 12/26/19 12/26/19 00:12 02:50 02:59 Temperature 37.1 C 37.2 C Heart Rate Heart Rate [ 115 H 114 H Brachial] Heart Rate [ Monitoring electrodes] Respiratory 18 18 Rate Blood Pressure 155/109 H Blood Pressure [Left Brachial artery] Blood Pressure 156/82 H 155/109 H [Right Brachial artery] O2 Saturation 94 94 12/26/19 12/26/19 12/26/19 04:00 09:00 09:26 Temperature 37.2 C Heart Rate Heart Rate [ 84 78 Brachial] Heart Rate [ Monitoring electrodes] Respiratory 20 21 Rate Blood Pressure Blood Pressure 179/118 H [Left Brachial artery] Blood Pressure 181/109 H [Right Brachial artery] O2 Saturation 96 12/26/19 12/26/19 12/26/19 10:17 10:20 10:25 Temperature 37.5 C Heart Rate Heart Rate [ 103 H 80 Brachial] Heart Rate [ Monitoring electrodes] Respiratory 20 19 Rate Blood Pressure 176/102 H 176/102 H Blood Pressure [Left Brachial artery] Blood Pressure 176/102 H 178/95 H [Right Brachial artery] O2 Saturation 95 95 12/26/19 12/26/19 12/26/19 10:30 10:35 10:50 Temperature Heart Rate Heart Rate [ 70 35 L 73 Brachial] Heart Rate [ Monitoring electrodes] Respiratory 18 19 18 Rate Blood Pressure 169/98 H Blood Pressure [Left Brachial artery] Blood Pressure 180/111 H 180/95 H 169/98 H [Right Brachial artery] O2 Saturation 97 96 97 12/26/19 12/26/19 11:04 11:45 Temperature 37.3 C Heart Rate Heart Rate [ 67 76 Brachial] Heart Rate [ Monitoring electrodes] Respiratory 18 19 Rate Blood Pressure Blood Pressure [Left Brachial artery] Blood Pressure 144/109 H [Right Brachial artery] O2 Saturation 97 96 Oxygen O2 Source Room air I&O (Last 24 Hrs): Intake and Output Totals x24h 12/24/19 12/25/19 12/26/19 23:59 23:59 23:59 Intake Total 1620 986.667 Balance 1620 986.667 General: Alert, Oriented x3, Mild distress HEENT: Atraumatic Neck: Supple Lymphatic: no adenopathy Neuro: Alert, Non Focal, Oriented Times 3 Cardiovascular: Regular rate, Normal S1, Normal S2 Respiratory: Chest non-tender, No respiratory distress Abdomen: Normal bowel sounds, Soft Extremities: Normal pulses - Results Results: Laboratory Results WBC 4.7 x10^3/uL (4.8-10.8) L 12/26/19 05: RBC 3.09 10^6/uL (4.20-5.40) L 12/26/19 05: Hgb 10.6 g/dL (12.0-16.0) L 12/26/19 05: Hct 30.0 % (37.0-47.0) L 12/26/19 05:29 MCV 97.1 fL (81.0-99.0) 12/26/19 05: MCH 34.3 pg (27.0-31.0) H 12/26/19 05: MCHC 35.3 g/dL (32.0-36.0) 12/26/19 05: RDW 15.3 % (12.0-15.0) H 12/26/19 05:29 Plt Count 100 10^3/uL (130-450) L 12/26/19 05: MPV 9.2 fL (7.9-10.8) 12/26/19 05:29 Neut # (Auto) 2.9 10^3/uL (1.5-6.6) 12/26/19 05:29 Lymph # (Auto) 1.3 10^3/uL (1.5-3.5) L 12/26/19 05:29 [place] # (Auto) 0.4 10^3/uL (0.0-1.0) 12/26/19 05:29 Eos # (Auto) 0.0 10^3/uL (0.0-0.7) 12/26/19 05:29 Baso # (Auto) 0.0 10^3/uL (0.0-0.1) 12/26/19 05:29 Absolute Nucleated RBC 0.00 x10^3/uL 12/26/19 05:29 Nucleated RBC % 0.0 /100WBC 12/26/19 05:29 Sodium 132 mmol/L (135-145) L 12/26/19 05:29 Sodium 133 mmol/L (135-145) L 12/26/19 05:29 Potassium 3.3 mmol/L (3.5-5.0) L 12/26/19 05:29 Potassium 3.4 mmol/L (3.5-5.0) L 12/26/19 05:29 Chloride 94 mmol/L (101-111) L 12/26/19 05:29 Chloride 96 mmol/L (101-111) L 12/26/19 05:29 Carbon Dioxide 25 mmol/L (21-32) 12/26/19 05:29 Carbon Dioxide 26 mmol/L (21-32) 12/26/19 05:29 Anion Gap 11.0 (6-13) 12/26/19 05:29 Anion Gap 13.0 (6-13) 12/26/19 05:29 BUN 33 mg/dL (6-20) H 12/26/19 05:29 BUN 33 mg/dL (6-20) H 12/26/19 05:29 Creatinine 0.8 mg/dL (0.4-1.0) 12/26/19 05:29 Creatinine 0.8 mg/dL (0.4-1.0) 12/26/19 05:29 Estimated GFR (MDRD) 73 (>89) L 12/26/19 05:29 Estimated GFR (MDRD) 73 (>89) L 12/26/19 05:29 Glucose 137 mg/dL (70-100) H 12/26/19 05:29 Glucose 141 mg/dL (70-100) H 12/26/19 05:29 Calcium 8.5 mg/dL (8.5-10.3) 12/26/19 05:29 Calcium 8.5 mg/dL (8.5-10.3) 12/26/19 05:29 Phosphorus 2.8 mg/dL (2.5-4.6) 12/26/19 05:29 Magnesium 1.7 mg/dL (1.7-2.8) 12/26/19 05:29 Total Bilirubin 1.2 mg/dL (0.2-1.0) H 12/26/19 05:29 AST 184 IU/L (10-42) H 12/26/19 05:29 ALT 65 IU/L (10-60) H 12/26/19 05:29 Alkaline Phosphatase 51 IU/L (42-121) 12/26/19 05:29 Troponin I High Sens 48.5 ng/L (2.3-14.8) H* 12/26/19 11:23 Total Protein 5.5 g/dL (6.7-8.2) L 12/26/19 05:29 Albumin 3.4 g/dL (3.2-5.5) 12/26/19 05:29 Globulin 2.1 g/dL (2.1-4.2) 12/26/19 05:29 Albumin/Globulin Ratio 1.6 (1.0-2.2) 12/26/19 05:29 Lipase 44 U/L (22-51) 12/25/19 16:47 Ethyl Alcohol 340.0 mg/dL 12/25/19 16:47 - Procedures Procedures: Procedures ENDOSC POLYPECTOMY OF LG INTEST (08/07/14) ABX Reporting Has patient been on IV antibiotics over the past 48 hours?: No Current Medications - Current Medications Current Medications: Active Medications Chlordiazepoxide HCl (Librium) 5 mg PO Q6H [facility] Last Admin: 12/26/19 09:05 Dose: 5 mg Documented by: Hydralazine HCl (Apresoline Inj) 10 mg IVP Q4H PRN PRN Reason: Hypertensive Emergency Multivitamins 10 ml/ Thiamine HCl 100 mg/ Folic Acid 1 mg/Potassium Chloride/Dextrose/Sod Cl 1,011.2 mls @ 100 mls/hr IV DAILY [facility] Insulin Aspart (Novolog) 1 - 5 unit SUBQ 0800,1200,1700,2100 [facility]; Protocol Insulin Glargine (Lantus Solostar) 10 unit SUBQ QPM [facility] Last Admin: 12/25/19 21:32 Dose: 10 unit Documented by: Lisinopril (Zestril) 5 mg PO DAILY [facility] Last Admin: 12/26/19 09:00 Dose: 5 mg Documented by: Lorazepam (Ativan Inj (Vial)) 1 mg IVP Q30M PRN; Protocol PRN Reason: CIWA >8 Last Admin: 12/26/19 10:43 Dose: 1 mg Documented by: Metoprolol Tartrate (Lopressor) 25 mg PO BID [facility] Last Admin: 12/26/19 10:17 Dose: 25 mg Documented by: Ondansetron HCl (Zofran Inj) 4 mg IVP Q6HR PRN PRN Reason: Nausea / Vomiting Last Admin: 12/26/19 00:15 Dose: 4 mg Documented by: Multivit/Folic Acid/Iron (Trinatal Rx 1) 1 tab PO DAILYWM [facility] Last Admin: 12/26/19 08:56 Dose: 1 tab Documented by: Sodium Chloride (Normal Saline Flush 0.9%) 10 ml IVP PRN PRN PRN Reason: NEEDED PER PROVIDER ORDERS Sodium Chloride (Normal Saline Flush 0.9%) 10 ml IVP 0100,0900,1700 [facility] Last Admin: 12/26/19 09:04 Dose: Not Given Documented by: Thiamine HCl (Vitamin B-1) 100 mg PO DAILY [facility] Last Admin: 12/26/19 09:00 Dose: 100 mg Documented by: Metformin HCl [Glucophage Xr] 1,000 mg PO BID 11/08/12 glipiZIDE [Glucotrol] 10 mg PO BID 11/08/12 lisinopriL [Zestril] 5 mg PO DAILY 11/08/12 Empagliflozin [Jardiance] 10 mg PO DAILY 03/23/16
[2019-12-26] MEDS: MULTIVITAMIN 10 ML, THIAMINE INJ 100 MG, FOLIC ACID INJ 1 MG, POTASSIUM CHLORIDE INJ 20... IV SCH ×5 (13:42)
[2019-12-26] MEDS: INSULIN ASPART 300 UNIT/3 ML PEN SUBQ SCH ×2 (17:31→20:39)
[2019-12-26] MEDS: INSULIN GLARGINE 300 UNIT/3 ML PEN SUBQ SCH (20:42)
[2019-12-27] MEDS: SODIUM CHLORIDE FLUSH 0.9% 10 ML SYRINGE IVP SCH ×2 (00:13→09:26)
[2019-12-27] MEDS: chlordiazePOXIDE 5 MG CAPSULE PO SCH ×2 (03:17→09:25)
[2019-12-27 05:47] LABS: BASOPHILS % (AUTO) 0.6 %; EOSINOPHILS # (AUTO) 0.1 10^3/uL (0.0-0.7); EOSINOPHILS % (AUTO) 1.2 %; HGB - HEMOGLOBIN 12.2 g/dL (12.0-16.0); LYMPHOCYTES # (AUTO) 1.7 10^3/uL (1.5-3.5); LYMPHOCYTES % (AUTO) 34.1 %; MEAN CORPUSCULAR HEMOGLOBIN 33.4 pg (27.0-31.0); MEAN CORPUSCULAR HGB CONC 34.8 g/dL (32.0-36.0); MEAN CORPUSCULAR VOLUME 96.2 fL (81.0-99.0); MEAN PLATELET VOLUME 10.3 fL (7.9-10.8); MONOCYTES # (AUTO) 0.5 10^3/uL (0.0-1.0); MONOCYTES % (AUTO) 9.2 %; NEUTROPHILS # (AUTO) 2.7 10^3/uL (1.5-6.6); NEUTROPHILS % (AUTO) 54.9 %; PLT - PLATELET COUNT 108 10^3/uL (130-450); RED BLOOD COUNT 3.65 10^6/uL (4.20-5.40); RED CELL DISTRIBUTION WIDTH 14.6 % (12.0-15.0); WHITE BLOOD COUNT 4.9 x10^3/uL (4.8-10.8)
[2019-12-27 05:56] LABS: ALBUMIN 3.6 g/dL (3.2-5.5); ALBUMIN/GLOBULIN RATIO 1.6 (1.0-2.2); BILIRUBIN,TOTAL 1.8 mg/dL (0.2-1.0); CREATININE 0.6 mg/dL (0.4-1.0); MAGNESIUM 1.5 mg/dL (1.7-2.8); TOTAL PROTEIN 5.9 g/dL (6.7-8.2)
[2019-12-27] MEDS ORDERED: MAGNESIUM SULFATE 2 GRAM 2 GM/50 ML BAG IV ONE (08:29)
[2019-12-27] MEDS: PRENATAL VITAMIN TABLET PO SCH (09:25)
[2019-12-27] MEDS: THIAMINE 100 MG TABLET PO SCH (09:25)
[2019-12-27] MEDS: METOPROLOL TARTRATE 25 MG TABLET PO SCH (09:25)
[2019-12-27] MEDS: lisinopriL 5 MG TABLET PO SCH (09:25)
[2019-12-27] MEDS: MULTIVITAMIN 10 ML, THIAMINE INJ 100 MG, FOLIC ACID INJ 1 MG, POTASSIUM CHLORIDE INJ 20... IV SCH ×5 (09:26)
[2019-12-27] MEDS: INSULIN ASPART 300 UNIT/3 ML PEN SUBQ SCH ×2 (10:09→11:47)
[2019-12-27 11:33] VITALS: BP 151/80
[2019-12-27] MEDS ORDERED: LORazepam 2 MG/ML VIAL IVP STA (11:55)
[2019-12-27] MEDS ORDERED: MAGNESIUM OXIDE 400 MG TABLET PO ONE (12:00)
[2019-12-27] MEDS ORDERED: LORazepam 1 MG TABLET PO STA (12:00)
--- NOTE | 2019-12-27 12:58 | Discharge Plan ---
Discharge Plan Problem Reviewed?: Yes Disposition: Home, Self Care Condition: Stable Prescriptions: chlordiazePOXIDE [Librium] 5 mg PO Q6H PRN #20 capsule PRN Reason: Anxiety Vitamin [Trinatal Rx 1] 1 tab PO DAILYWM #30 tablet Thiamine [Vitamin B-1] 100 mg PO DAILY #30 tablet Diet: Regular Activity Restrictions: Activity as Tolerated Shower Restrictions: No (fall precaution) Instruction Topics: Chlordiazepoxide capsules, Alcoholism Impact, Addiction Alcohol Signs, Alcoholism, Alcoholism Get Help Health Concerns: alcoholism Plan of Treatment: You are prescribed librium to help you quit your alcohol addiction, strongly advise you quit your alcohol addiction problem. Care Goals: stabilization and quit of your alcohol issue Assessment: discussed the care plan with you, you understood and agreed Additional Instructions or Follow Up instructions: You may followup with your PCP in one to two weeks, should your symptoms return or worsen, you may present ER or call 911 for help. No Smoking: If you smoke, Please STOP! Call for help. Follow-up with: Theresa Sharp DO [Primary Care Provider] -
--- NOTE | 2019-12-27 13:08 | DISCHARGE SUMMARY ---
Discharge Summary Admit Date: 12/25/19 Discharge Date: 12/27/19 Discharging Provider: German Forman Primary Care Provider: Dr. Genny Sharp Condition at Discharge: Stable Discharge Disposition: 01 Home, Self Care Discharge Facility Name: home - DIAGNOSES Discharge Diagnoses with Status of Each Condition: (1) Alcohol withdrawal pt has no more nausea or vomiting or other acute withdrawal symptoms. pt tolerate diet. pt has chronic tremor as her baseline. pt is ready to be d/c. pt was prescribed PRN Librium. social media developer was consulted to help pt quit her alcoholism. pt was educated to quit alcohol, and avoid drinking of alcohol when she take Librium (2) Chest pain resolved. she complains of bilateral lower rib pain that is reproducible with palpitation. She states she has been falling to cause her rib pain when alcohol intoxicated. CXR reveals unremarkable. EKG show no evidence of ST variation. Bibiana rollins is in the flat. (3) hypoglycemia resolved. pt's A1C is 6.0. pt was educated she is pre-diabetes according to her A1C. advise her not to take her diabetes medications when she drink alcohol, which could cause her to have dangerous hypoglycemia. advise her followup with her PCP to manage her medications (4) Diabetes A1C is 6.0. pt was educated she is pre-diabetes according to her A1C. advise her not to take her diabetes medications when she drink alcohol, which could cause her to have dangerous hypoglycemia. advise her followup with her PCP to manage her medications. (5) Hypertension stable (6) OBDULIA (acute kidney injury) resolved. advise pt keep hydration at home (7) elevated liver enzyme slight reduced, advise pt quit alcohol abuse. - HPI History of Present Illness: refer from [facility] on 12/25/2019 Patient is a 59-year old female with a longstanding history of alcohol abuse, hypertension, and type 2 diabetes who presents to the ED via EMS with weakness. Patient reports drinking a pint of vodka this morning at home and was "drunk and felt extremely weak" this afternoon and "could not stand up or walk", which prompted her to called 911. On arrival to the ED, she complained of having substernal chest pain, which she now denies having or experienced ever having earlier. A set of troponin was done and found it to be slightly elevated at 28, recheck was 31. However, no ECG was done in the ED. Patient does endorse having bilateral musculoskeletal rib pain instead. She associate it with her falling which she said has been happening frequently when she drinks. CXR was done and results were unremarkable. She was apparently intoxicated in the ED with an ethyl alcohol level of 340. She denies being intoxicated right now and is able to answer questions appropriately. She reports having a headache, feeling nauseous, and shaky. Denies fever or chills. Unintentional weight loss of about 15-20 pounds in the last year. She attributes this to not eating because of drinking. Patient denies sore throat but has a chronic cough most likely from being a smoker. No chest pain, palpitations, edema, orthopnea. She is nauseous and vomits frequently from drinking. No hematemesis or history of esophageal va rices. Admits having occasional constipation and diarrhea and noticed melena yesterday. She states this has happened before when she drinks for a few days straight and usually resolves when she stops drinking. No hematuria. Does not have a history of seizure or stroke. No numbness, tingling, or weakness. Patient tells me she started drinking when she was 15. Her family (both parents, siblings, aunts, and uncles) have a strong history of alcoholism. CAGE score is 4. She admits having an alcohol problem and knows she should cut down. She has been in treatment 4 times in the past and was in AA groups but has never quit for more than a year. She reports drinking daily, about a fifth or a pint of hard alcohol a day. Her drinking has increased since her mother last Anjel. She expresses a desire to quit drinking. Will communicate with social work tomorrow to see her. - HOSPITAL COURSE Hospital Course: pt was admitted for weakness. Patient reports drinking a pint of vodka this morning at home. Her alcohol level was 340. pt has hx of alcoholism. pt reported bilateral lower rib pain because fall at home after she drunk. pt also was found to have hypoglycemia because her drunk without eating of food. pt was give alcohol withdrawal treatment and CIWA protocol. after treatment, pt has no nausea or vomiting, she tolerated the regular diet. pt has hx of chronic tremor as her baseline. she has no other withdrawal symptoms. pt is ready to be d/c. pt was prescribed Librium PRN. social media developer was consulted to help pt quit alcoholism. - ALLERGIES Allergies/Adverse Reactions: Allergies Allergy/AdvReac Type Severity Reaction Status Date / Time No Known Drug Allergies Allergy Verified 12/25/19 16:19 - MEDICATIONS Home Medications: Ambulatory Orders Medication Instructions Recorded Confirmed Metformin HCl [Glucophage Xr] 1,000 mg PO BID 11/08/12 02/06/17 glipiZIDE [Glucotrol] 10 mg PO BID 11/08/12 02/06/17 Empagliflozin [Jardiance] 10 mg PO DAILY 03/23/16 02/06/17 Potassium Chloride 10 meq PO DAILY #20 tablet.er 02/06/17 Albuterol Sulfate [Proair Hfa 2 puffs INH Q4H PRN 12/27/19 12/27/19 Inhaler] Lisinopril [Zestril] 20 mg PO DAILY 12/27/19 12/27/19 Vitamin [Trinatal Rx 1] 1 tab PO DAILYWM #30 tablet 12/27/19 Thiamine [Vitamin B-1] 100 mg PO DAILY #30 tablet 12/27/19 chlordiazePOXIDE [Librium] 5 mg PO Q6H PRN #20 capsule 12/27/19 chlordiazePOXIDE [Librium] 5 mg PO Q6H PRN #20 capsule 12/27/19 LORazepam [Lorazepam] 2 mg PO TID #7 tablet 12/28/19 - PHYSICAL EXAM AT DISCHARGE General Appearance: positive: No acute distress, Alert. negative: Lethargic Eyes Bilateral: positive: Normal inspection, PERRL, No lid inflammation ENT: positive: ENT inspection nml, No signs of dehydration. negative: Purulent nasal drainage Neck: positive: Nml inspection, Thyroid nml, Trachea midline. negative: Thyromegaly, Tracheal deviation Respiratory: positive: Chest non-tender, No respiratory distress, Breath sounds nml. negative: Wheezes, Rales, Rhonchi Cardiovascular: positive: Regular rate & rhythm, No murmur, No gallop. negat judy: Tachycardia, Bradycardia, Systolic murmur, Diastolic murmur Peripheral Pulses: positive: 2+ Abdomen: positive: Non-tender, Nml bowel sounds, No distention. negative: Tenderness Back: positive: Nml inspection Skin: positive: Color nml, No rash, Warm, Dry. negative: Cyanosis, Diaphoresis, Pallor Extremities: positive: Non-tender, Nml appearance. negative: Calf tenderness Neurologic/Psychiatric: positive: Oriented x3, Motor nml, Sensation nml, Mood/affect nml. negative: Weakness, Sensory loss, Facial droop, Slurred/abnml speech, Depressed mood/affect - LABS Result Diagrams: 12/27/19 05:25 12/27/19 05:25 - FOLLOW UP Follow Up: You are prescribed librium to help you quit your alcohol addiction, strongly advise you quit your alcohol addiction problem. You may followup with your PCP in one to two weeks, should your symptoms return or worsen, you may present ER or call 911 for help. - TIME SPENT Time Spent in Discharge (Minutes): 30
== END 2019-12-27 15:00 | disposition home or self-care (01) ==
LOC: EDUNIT# → ED 16:07 → MS2 18:20
PROVIDERS: ADMIT Internal Medicine; ATTEND Nurse Practitioner Gerontology
DX: F10.230 Alcohol dependence with withdrawal, uncomplicated (principal); F10.229 Alcohol dependence with intoxication, unspecified; Y90.8 Blood alcohol level of 240 mg/100 ml or more; N17.9 Acute kidney failure, unspecified; E11.649 Type 2 diabetes mellitus with hypoglycemia without coma; I10 Essential (primary) hypertension; R79.89 Other specified abnormal findings of blood chemistry; R07.82 Intercostal pain; E46 Unspecified protein-calorie malnutrition; Z68.1 Body mass index [BMI] 19.9 or less, adult; M81.0 Age-related osteoporosis without current pathological fracture; R25.1 Tremor, unspecified; M41.9 Scoliosis, unspecified; G89.29 Other chronic pain; M54.9 Dorsalgia, unspecified; Z81.1 Family history of alcohol abuse and dependence; F17.210 Nicotine dependence, cigarettes, uncomplicated; Z91.81 History of falling; Z79.84 Long term (current) use of oral hypoglycemic drugs
CPT/HCPCS: 36415; 71045; 80048; 80053; 80320; 83036; 83690; 83735; 84100; 84484; 85025; 93005; 93306; 96361; 96365; 96366; 96368; 96375; 96376; 99285; A9270; G0378; J1815; J2060; J3411; J3480; J7120; J8499

== ENCOUNTER 2019-12-28 04:36 | Emergency (ER) | payer MEDICAID ==
[2019-12-28 04:52] VITALS: BP 139/110
--- NOTE | 2019-12-28 05:15 | ED Physician Documentation ---
History of Present Illness - Stated complaint Stated Complaint: SHAKING/ETOH WITHDRAWAL - Chief complaint Chief Complaint: General - History obtained from History obtained from: Patient - History of Present Illness Timing: Yesterday Pain level now: 0 - Additonal information Additional information: discharged from inpatient [facility] yesterday afternoon after inpatient stay to treat alcohol withdrawal and symptoms of chronic alcoholism (abdominal pain, nausea, vomiting). she say she went to three different pharmacies today but none of them had the librium in stock (librium had been prescribed when she was discharged). she says one of the pharmacies said they would have it available on Monday. She was becoming tremulous and felt she was going into withdrawal and thus she bought and drank vodka to prevent withdrawal. She feels better having drank the vodka but is worried about getting through the weekend without the prescription medication and would like to avoid drinking again Review of Systems Cardiac: denies: Chest pain / pressure, Palpitations Respiratory: denies: Dyspnea, Cough GI: denies: Abdominal Pain, Nausea, Vomiting Psychiatric: reports: Anxiety. denies: Depressed, Suicidal, Hallucinations, Delusions PD PAST MEDICAL HISTORY - Past Medical History Past Medical History: Yes Cardiovascular: Hypertension Respiratory: None Neuro: None Endocrine/Autoimmune: Type 2 diabetes GI: None COMPUTATIONAL PHYSICIST: None : None HEENT: None Psych: None Musculoskeletal: Osteoporosis, Scoliosis, Chronic back pain Derm: None Other Past Medical History: ALCOHOLISM... - Past Surgical History Past Surgical History: Yes Ortho: Other /COMPUTATIONAL PHYSICIST: Oophrectomy, Other - Present Medications Home Medications: Ambulatory Orders Medication Instructions Recorded Confirmed Metformin HCl [Glucophage Xr] 1,000 mg PO BID 11/08/12 02/06/17 glipiZIDE [Glucotrol] 10 mg PO BID 11/08/12 02/06/17 Empagliflozin [Jardiance] 10 mg PO DAILY 03/23/16 02/06/17 Potassium Chloride 10 meq PO DAILY #20 tablet.er 02/06/17 Albuterol Sulfate [Proair Hfa 2 puffs INH Q4H PRN 12/27/19 12/27/19 Inhaler] Lisinopril [Zestril] 20 mg PO DAILY 12/27/19 12/27/19 Vitamin [Trinatal Rx 1] 1 tab PO DAILYWM #30 tablet 12/27/19 Thiamine [Vitamin B-1] 100 mg PO DAILY #30 tablet 12/27/19 chlordiazePOXIDE [Librium] 5 mg PO Q6H PRN #20 capsule 12/27/19 chlordiazePOXIDE [Librium] 5 mg PO Q6H PRN #20 capsule 12/27/19 LORazepam [Lorazepam] 2 mg PO TID #7 tablet 12/28/19 - Allergies Allergies/Adverse Reactions: Allergies Allergy/AdvReac Type Severity Reaction Status Date / Time No Known Drug Allergies Allergy Verified 12/25/19 16:19 - Social History Does the pt smoke?: Yes Smoking Status: Current every day smoker Does the pt drink ETOH?: Yes Does the pt have substance abuse?: No - Immunizations Immunizations are current?: No Immunizations: TDAP current <10years - POLST Patient has POLST: No POLST Status: Full Code PD ED PE NORMAL - Vitals Vital signs reviewed: Yes - General General: Alert and oriented X 3, No acute distress, Well developed/nourished - HEENT HEENT: Moist mucous membranes - Cardiac Cardiac: RRR, No murmur - Respiratory Respiratory: No respiratory distress, Clear bilaterally - Abdomen Abdomen: Soft, Non tender - Derm Derm: Normal color - Neuro Neuro: Alert and oriented X 3 Eye Opening: Spontaneous Motor: Obeys Commands Verbal: Oriented GCS Score: 15 - Psych Psych: Normal mood, Normal affect Results - Vitals Vitals: Vital Signs - 24 hr 12/28/19 12/28/19 12/28/19 04:45 05:25 05:56 Temperature 36.5 C Heart Rate 94 Respiratory 20 16 16 Rate Blood Pressure 139/110 H O2 Saturation 95 Oxygen O2 Source Room air PD MEDICAL DECISION MAKING - ED course Complexity details: reviewed old records, considered differential, d/w patient ED course: patient is calm and cooperative. Early in HPI, she apologizes for coming in and says that she feels she is "wasting your time" because she feels she does not need to be in ED; however, she also expresses a desire to avoid further alcohol consumption. She says her drove her to the ED. She does not exhibit overt signs of withdrawal on my H+P. I discussed options with her and recommended a dose of lorazepam now and that I would provide an rx for lorazepam with doses to hopefully stave off withdrawal through the weekend until she can then get the librium rx filled. She is agreeable to this plan. I emphasized to her the importance of not drinking alcohol while taking either lorazepam or librium, and that if she feels the prescribed medications are not adequately controlling her symptoms, she should return to the ED rather than drink more alcohol. Departure - Departure Disposition: 01 Home, Self Care Clinical Impression: Alcoholism Condition: Good Instructions: ED Withdrawal Alcohol, ED Alcohol Abuse Follow-Up: Theresa Sharp DO [Primary Care Provider] - Prescriptions: LORazepam [Lorazepam] 2 mg PO TID #7 tablet Comments: You have indicated that you have been unable to fill the prescription for the Librium (chlordiazepoxide) due to multiple pharmacies not having this medication in stock until Monday. I have provided a prescription for lorazepam which should have a similar effect in minimizing the symptoms of alcohol withdrawal. It it to be taken as directed and no alcohol nor librium should be taken with this medication. As soon as you fill the prescription for the librium, stop the lorazepam and take the librium as prescribed. Discharge Date/Time: 12/28/19 05:57
[2019-12-28] MEDS ORDERED: LORazepam 0.5 MG TABLET PO STA (05:41)
== END 2019-12-28 05:57 | disposition home or self-care (01) ==
LOC: ED 04:36
DX: F10.239 Alcohol dependence with withdrawal, unspecified (principal); E11.9 Type 2 diabetes mellitus without complications; Z79.84 Long term (current) use of oral hypoglycemic drugs; I10 Essential (primary) hypertension; F17.200 Nicotine dependence, unspecified, uncomplicated
CPT/HCPCS: 99282; 99284; A9270

== ENCOUNTER 2020-07-31 18:12 | Outpatient (CLI) | payer MEDICAID | END 2020-07-31 18:13 | disposition EMS.NT | LOC: EMS 18:12 | DX: F10.129 Alcohol abuse with intoxication, unspecified (principal) ==

== ENCOUNTER 2020-07-31 19:51 | Emergency (ER) | payer MEDICAID ==
[2020-07-31 20:00] VITALS: BP 95/67
--- OUTSIDE RECORDS SUMMARY | 2020-07-31 20:06 | EXTERNAL MEDICAL SUMMARY RPT | Continuity of Care Document ---
:1960 Demographics Phone Unavailable Preferred Language Unknown Marital Status Unknown Rastafarian Affiliation Unknown Race Unknown Ethnic Group Unknown Author Organization [place] Address [address] [phone] Phone Allergies Encounters Medications Problems Results
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
[2020-07-31] MEDS ORDERED: IBUPROFEN 600 MG TABLET PO STA (21:05)
[2020-07-31] MEDS ORDERED: ACETAMINOPHEN 325 MG TABLET PO STA (21:05)
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
--- NOTE | 2020-07-31 21:09 | CT Report ---
PROCEDURE: CERVICAL SPINE WO INDICATIONS: Trauma TECHNIQUE: Noncontrast 3 mm thick sections acquired from the skull base to the T4 level. Sagittal and coronal r eformats were then constructed. For radiation dose reduction, the following was used: automated exp osure control, adjustment of mA and/or kV according to patient size. COMPARISON: None. FINDINGS: Image quality: Excellent. Bones: No fractures or dislocations. Visualized superior ribs are intact. Moderate multilevel dege nerative changes. Soft tissues: Prevertebral soft tissues are normal in thickness. No paravertebral hematomas. No ap ical pneumothoraces. IMPRESSION: No CT evidence of acute traumatic cervical spine injury. Reviewed by: Siva Rebollar MD on 07/31/2020 9:08 PM PDT Approved by: Siva Rebollar MD on 07/31/2020 9:08 PM PDT Station ID: [id number]
--- NOTE | 2020-07-31 21:12 | CT Report ---
PROCEDURE: CHEST WO INDICATIONS: Trauma, chest wall injury TECHNIQUE: Noncontrast 5 mm thick sections acquired from the pulmonary apices to the posterior costophrenic angl es. 7 mm thick coronal and sagittal MIP reformats were then acquired. For radiation dose reduction, the following was used: automated exposure control, adjustment of mA and/or kV according to patient size. COMPARISON: None FINDINGS: Image quality: Excellent. Lungs and pleura: No acute air space opacities. No pleural effusions or pneumothorax. Central and peripheral airways are patent and normal in caliber. Mediastinum: Heart size is normal. No pericardial effusion. No mediastinal adenopathy by size crit eria. Thoracic aorta and central pulmonary arteries are normal in size. Esophagus is normal in macrina cali. No hiatal hernia. Bones and chest wall: No acute chest wall fracture identified. Thoracic vertebral body height and ali gnment are maintained. There are remote left rib fractures posteriorly and anteriorly. Partially incl uded thyroid is unremarkable. Abdomen: Severe hepatic steatosis. No acute finding in the included portion of the unenhanced upper a bdomen. IMPRESSION: No acute finding in the chest. Specifically, there is no evidence of acute chest wall fracture or tho racic spine fracture. There are remote left rib fractures. Severe hepatic steatosis. Reviewed by: Siva Rebollar MD on 07/31/2020 9:11 PM PDT Approved by: Siva Rebollar MD on 07/31/2020 9:11 PM PDT Station ID: [id number]
== END 2020-07-31 21:31 | disposition home or self-care (01) ==
LOC: ED 19:51
DX: S09.90XA Unspecified injury of head, initial encounter (principal); W18.39XA Other fall on same level, initial encounter; Y93.89 Activity, other specified; R07.89 Other chest pain; F10.920 Alcohol use, unspecified with intoxication, uncomplicated; I10 Essential (primary) hypertension; E11.9 Type 2 diabetes mellitus without complications; Z79.84 Long term (current) use of oral hypoglycemic drugs; F17.200 Nicotine dependence, unspecified, uncomplicated
CPT/HCPCS: 99282; 99284

== ENCOUNTER 2020-09-24 14:59 | Outpatient (CLI) | payer MEDICAID | END 2020-09-24 15:00 | disposition critical access hospital (66) | LOC: EMS 14:59 | DX: R19.7 Diarrhea, unspecified (principal); K92.1 Melena; R53.1 Weakness | CPT/HCPCS: A0425; A0427; A0999 ==

== ENCOUNTER 2020-09-24 15:07 | Inpatient (IN) | payer MEDICAID ==
[2020-09-24] MEDS ORDERED: OCTREOTIDE 100 MCG/ML VIAL IVP STA (15:12)
[2020-09-24] MEDS ORDERED: OCTREOTIDE 500 MCG in SODIUM CHLORIDE 0.9% 100ML 95 ML IV STA (15:12)
[2020-09-24] MEDS ORDERED: cefTRIAXone 1 GM in SODIUM CHLORIDE 0.9% MINIBAG 100 ML IV STA (15:12)
[2020-09-24] MEDS ORDERED: PANTOPRAZOLE 80 MG in SODIUM CHLORIDE 0.9% 100ML 100 ML IV STA ×4 (15:12)
--- NOTE | 2020-09-24 15:15 | ED Physician Documentation ---
History of Present Illness - Stated complaint Stated Complaint: RECTAL BLEED - History obtained from History obtained from: Patient, EMS - Additonal information Additional information: 60-year-old alcoholic, no known liver disease or varices presents with severe rectal bleeding starting this morning with abdominal pain. Had a blood pressure of 44/29 for EMS. States she started have diarrhea this morning and then it turned bloody. Every time she moves she was either having diarrhea or bleeding. There is no melena. Review of Systems Ten Systems: 10 systems reviewed and negative GI: reports: Abdominal Pain Musculoskeletal: reports: Back pain (Ongoing back pain from thoracic compression fractures) PD PAST MEDICAL HISTORY - Past Medical History Cardiovascular: Hypertension Respiratory: None Neuro: None Endocrine/Autoimmune: Type 2 diabetes GI: None HEAD LOADER: None : None HEENT: None Psych: None Musculoskeletal: Osteoporosis, Scoliosis, Chronic back pain Derm: None - Past Surgical History Past Surgical History: Yes Ortho: Other /HEAD LOADER: Oophrectomy, Other - Present Medications Home Medications: Ambulatory Orders Medication Instructions Recorded Confirmed Metformin HCl [Glucophage Xr] 1,000 mg PO BID 11/08/12 02/06/17 glipiZIDE [Glucotrol] 10 mg PO BID 11/08/12 02/06/17 Empagliflozin [Jardiance] 10 mg PO DAILY 03/23/16 02/06/17 Potassium Chloride 10 meq PO DAILY #20 tablet.er 02/06/17 Albuterol Sulfate [Proair Hfa 2 puffs INH Q4H PRN 12/27/19 12/27/19 Inhaler] Lisinopril [Zestril] 20 mg PO DAILY 12/27/19 12/27/19 Vitamin [Trinatal Rx 1] 1 tab PO DAILYWM #30 tablet 12/27/19 Thiamine [Vitamin B-1] 100 mg PO DAILY #30 tablet 12/27/19 chlordiazePOXIDE [Librium] 5 mg PO Q6H PRN #20 capsule 12/27/19 chlordiazePOXIDE [Librium] 5 mg PO Q6H PRN #20 capsule 12/27/19 LORazepam [Lorazepam] 2 mg PO TID #7 tablet 12/28/19 - Allergies Allergies/Adverse Reactions: Allergies Allergy/AdvReac Type Severity Reaction Status Date / Time No Known Drug Allergies Allergy Verified 09/24/20 15:16 - Social History Does the pt smoke?: Yes Smoking Status: Current every day smoker Does the pt drink ETOH?: Yes Does the pt have substance abuse?: No - Family History Family history: reports: Non contributory - Immunizations Immunizations are current?: No Immunizations: TDAP current <10years - POLST Patient has POLST: No POLST Status: Full Code PD ED PE NORMAL - Vitals Vital signs reviewed: Yes - General General: Alert and oriented X 3, Other (She appears ill and pale, potentially mildly jaundiced. Slightly somnolent.) - HEENT HEENT: PERRL, EOMI - Neck Neck: Supple, no meningeal sign, No bony TTP - Cardiac Cardiac: RRR, No murmur, Other (Peripheral pulses are thready) - Respiratory Respiratory: No respiratory distress, Clear bilaterally - Abdomen Abdomen: Normal bowel sounds, Soft, Non tender - Derm Derm: Normal color, Warm and dry - Extremities Extremities: No edema, No calf tenderness / cord - Neuro Neuro: Alert and oriented X 3, Normal speech Results - Vitals Vitals: Vital Signs - 24 hr 09/24/20 09/24/20 09/24/20 15:07 15:30 15:40 Temperature 36.3 C L Heart Rate 89 92 Respiratory 16 16 Rate Blood Pressure 68/53 L 71/48 L 96/41 L O2 Saturation 100 98 09/24/20 09/24/20 09/24/20 16:00 16:10 16:30 Temperature Heart Rate 92 93 Respiratory 18 17 Rate Blood Pressure 77/45 L 86/53 L 75/37 L O2 Saturation 98 99 09/24/20 09/24/20 09/24/20 16:42 16:55 17:00 Temperature 36.8 C Heart Rate 91 91 89 Respiratory 16 16 16 Rate Blood Pressure 81/57 L 68/53 L 78/49 L O2 Saturation 99 94 98 09/24/20 17:30 Temperature Heart Rate 100 Respiratory 16 Rate Blood Pressure 88/49 L O2 Saturation 97 Oxygen O2 Source Room air - EKG (time done) 1558 Rate: Rate (enter#) (93) Rhythm: NSR (w pvcs), LAE, ZO Intervals: Prolonged QT QRS: Normal Ischemia: Normal ST segments - Labs Labs: Laboratory Tests 09/24/20 09/24/20 09/24/20 15:20 15:20 15:20 WBC RBC Hgb Hct MCV MCH MCHC RDW Plt Count MPV Neut # (Auto) Lymph # (Auto) [place] # (Auto) Eos # (Auto) Baso # (Auto) Absolute Nucleated RBC Nucleated RBC % PT INR Sodium 136 Potassium 3.2 L Chloride 94 L Carbon Dioxide 16 L Anion Gap 26.0 H BUN 19 Creatinine 3.1 H Estimated GFR (MDRD) 15 L Glucose 92 Lactic Acid Calcium 8.4 L Phosphorus 7.0 H Magnesium 2.1 Total Bilirubin 1.1 H AST 160 H ALT 55 Alkaline Phosphatase 53 Ammonia Troponin I High Sens 23.1 H* B-Natriuretic Peptide Total Protein 6.6 L Albumin 3.9 Globulin 2.7 Albumin/Globulin Ratio 1.4 Lipase 51 Urine Color Urine Clarity Urine pH Ur Specific [place] Urine Protein Urine Glucose (UA) Urine Ketones Urine Occult Blood Urine Nitrite Urine Bilirubin Urine Urobilinogen Ur Leukocyte Esterase Urine RBC Urine WBC Ur Squamous Epith Cells Amorphous Sediment Urine Bacteria Ur Microscopic Review Urine Culture Comments Nasal Adenovirus (PCR) Nasal B. parapertussis DNA (PCR) Nasal Coronavir 229E PCR Nasal Coronavir HKU1 PCR Nasal Coronavir NL63 PCR Nasal Coronavir OC43 PCR Nasal Enterovir/Rhinovir PCR Nasal Influenza B PCR Nasal Influenza A PCR Nasal Parainfluen 1 PCR Nasal Parainfluen 2 PCR Nasal Parainfluen 3 PCR Nasal Parainfluen 4 PCR Nasal RSV (PCR) Nasal B.pertussis DNA PCR Nasal C.pneumoniae (PCR) [place] Human Metapneumo PCR Nasal M.pneumoniae (PCR) Nasal SARS-CoV-2 (PCR) Ethyl Alcohol 199.4 Blood Type O NEGATIVE Blood Type Recheck Antibody Screen NEGATIVE Crossmatch IS Only See Detail 09/24/20 09/24/20 09/24/20 15:20 15:40 15:40 WBC RBC Hgb Hct MCV MCH MCHC RDW Plt Count MPV Neut # (Auto) Lymph # (Auto) [place] # (Auto) Eos # (Auto) Baso # (Auto) Absolute Nucleated RBC Nucleated RBC % PT INR Sodium Potassium Chloride Carbon Dioxide Anion Gap BUN Creatinine Estimated GFR (MDRD) Glucose Lactic Acid 7.3 H* Calcium Phosphorus Magnesium Total Bilirubin AST ALT Alkaline Phosphatase Ammonia 20.5 Troponin I High Sens B-Natriuretic Peptide Total Protein Albumin Globulin Albumin/Globulin Ratio Lipase Urine Color Urine Clarity Urine pH Ur Specific [place] Urine Protein Urine Glucose (UA) Urine Ketones Urine Occult Blood Urine Nitrite Urine Bilirubin Urine Urobilinogen Ur Leukocyte Esterase Urine RBC Urine WBC Ur Squamous Epith Cells Amorphous Sediment Urine Bacteria Ur Microscopic Review Urine Culture Comments Nasal Adenovirus (PCR) Nasal B. parapertussis DNA (PCR) Nasal Coronavir 229E PCR Nasal Coronavir HKU1 PCR Nasal Coronavir NL63 PCR Nasal Coronavir OC43 PCR Nasal Enterovir/Rhinovir PCR Nasal Influenza B PCR Nasal Influenza A PCR Nasal Parainfluen 1 PCR Nasal Parainfluen 2 PCR Nasal Parainfluen 3 PCR Nasal Parainfluen 4 PCR Nasal RSV (PCR) Nasal B.pertussis DNA PCR Nasal C.pneumoniae (PCR) [place] Human Metapneumo PCR Nasal M.pneumoniae (PCR) Nasal SARS-CoV-2 (PCR) Ethyl Alcohol Blood Type Blood Type Recheck O NEGATIVE Antibody Screen Crossmatch IS Only 09/24/20 09/24/20 09/24/20 15:40 15:40 15:40 WBC 6.9 RBC 3.87 L Hgb 13.2 Hct 40.2 MCV 103.9 H MCH 34.1 H MCHC 32.8 RDW 13.9 Plt Count 205 MPV 8.9 Neut # (Auto) 5.3 Lymph # (Auto) 1.1 L [place] # (Auto) 0.3 Eos # (Auto) 0.0 Baso # (Auto) 0.0 Absolute Nucleated RBC 0.00 Nucleated RBC % 0.0 PT 11.9 INR 1.1 Sodium Potassium Chloride Carbon Dioxide Anion Gap BUN Creatinine Estimated GFR (MDRD) Glucose Lactic Acid Calcium Phosphorus Magnesium Total Bilirubin AST ALT Alkaline Phosphatase Ammonia Troponin I High Sens 27.7 H* B-Natriuretic Peptide Total Protein Albumin Globulin Albumin/Globulin Ratio Lipase Urine Color Urine Clarity Urine pH Ur Specific [place] Urine Protein Urine Glucose (UA) Urine Ketones Urine Occult Blood Urine Nitrite Urine Bilirubin Urine Urobilinogen Ur Leukocyte Esterase Urine RBC Urine WBC Ur Squamous Epith Cells Amorphous Sediment Urine Bacteria Ur Microscopic Review Urine Culture Comments Nasal Adenovirus (PCR) Nasal B. parapertussis DNA (PCR) Nasal Coronavir 229E PCR Nasal Coronavir HKU1 PCR Nasal Coronavir NL63 PCR Nasal Coronavir OC43 PCR Nasal Enterovir/Rhinovir PCR Nasal Influenza B PCR Nasal Influenza A PCR Nasal Parainfluen 1 PCR Nasal Parainfluen 2 PCR Nasal Parainfluen 3 PCR Nasal Parainfluen 4 PCR Nasal RSV (PCR) Nasal B.pertussis DNA PCR Nasal C.pneumoniae (PCR) [place] Human Metapneumo PCR Nasal M.pneumoniae (PCR) Nasal SARS-CoV-2 (PCR) Ethyl Alcohol Blood Type Blood Type Recheck Antibody Screen Crossmatch IS Only 09/24/20 09/24/20 09/24/20 15:40 16:04 16:45 WBC RBC Hgb Hct MCV MCH MCHC RDW Plt Count MPV Neut # (Auto) Lymph # (Auto) [place] # (Auto) Eos # (Auto) Baso # (Auto) Absolute Nucleated RBC Nucleated RBC % PT INR Sodium Potassium Chloride Carbon Dioxide Anion Gap BUN Creatinine Estimated GFR (MDRD) Glucose Lactic Acid Calcium Phosphorus Magnesium Total Bilirubin AST ALT Alkaline Phosphatase Ammonia Troponin I High Sens B-Natriuretic Peptide 45 Total Protein Albumin Globulin Albumin/Globulin Ratio Lipase Urine Color YELLOW Urine Clarity CLOUDY Urine pH 5.5 Ur Specific [place] 1.025 Urine Protein 100 H Urine Glucose (UA) NEGATIVE Urine Ketones TRACE Urine Occult Blood SMALL H Urine Nitrite NEGATIVE Urine Bilirubin NEGATIVE Urine Urobilinogen 0.2 (NORMAL) Ur Leukocyte Esterase MODERATE H Urine RBC 6-10 H Urine WBC >25 H Ur Squamous Epith Cells FEW Squamous Amorphous Sediment Few Urine Bacteria Many H Ur Microscopic Review INDICATED Urine Culture Comments INDICATED Nasal Adenovirus (PCR) NOT DETECTED Nasal B. parapertussis DNA (PCR) NOT DETECTED Nasal Coronavir 229E PCR NOT DETECTED Nasal Coronavir HKU1 PCR NOT DETECTED Nasal Coronavir NL63 PCR NOT DETECTED Nasal Coronavir OC43 PCR NOT DETECTED Nasal Enterovir/Rhinovir PCR NOT DETECTED Nasal Influenza B PCR NOT DETECTED Nasal Influenza A PCR NOT DETECTED Nasal Parainfluen 1 PCR NOT DETECTED Nasal Parainfluen 2 PCR NOT DETECTED Nasal Parainfluen 3 PCR NOT DETECTED Nasal Parainfluen 4 PCR NOT DETECTED Nasal RSV (PCR) NOT DETECTED Nasal B.pertussis DNA PCR NOT DETECTED Nasal C.pneumoniae (PCR) NOT DETECTED [place] Human Metapneumo PCR NOT DETECTED Nasal M.pneumoniae (PCR) NOT DETECTED Nasal SARS-CoV-2 (PCR) NOT DETECTED Ethyl Alcohol Blood Type Blood Type Recheck Antibody Screen Crossmatch IS Only - Rads (name of study) Single view chest x-ray shows central venous catheter over the distal SVC, clear lungs, old rib fractures. Radiology: EMP read contemporaneously Procedures - Central Line Central Line Preparation: Consent Obtained (verbal), Time out completed, Ultrasound used, Sterile prep and drape Central line location: Right IJ Central line type: Triple lumen (7F) Central line aftercare: Secured, No complications, Pt tolerated well PD MEDICAL DECISION MAKING - ED course ED course: 60-year-old woman with history of alcoholism presents critically ill With shock with what sounds like a lower GI bleed with profound hypotension. Despite that her mental status is basically normal albeit somnolent at times, but alert and oriented. She was seen on arrival. On arrival she had 2 18-gauge IVs pulled already and had had about 850 mL of crystalloid in the prehospital setting. We placed a third IV and also a right IJ central line. 2 units of uncrossed matched O- blood were ordered emergently and infused. Note made that the first set of labs hemolyzed, so the initial labs that were resulted were after the first unit of blood. Presuming GI bleed, upper or lower as the source of shock, besides blood, she was also ordered 1 g of Rocephin, Protonix 80 mg bolus and 8 mg/h drip, octreotide 50 mcg bolus and 50 mcg/h drip. Surprisingly her hemoglobin was 13.2, if the acuity of the bleeding was hyperacute, she may not have time had time to dilute her hemoglobin yet, but we need to evaluate for other causes of shock as well. She does not have a leukocytosis. Her INR is normal. She has a significant lactic acidosis with a lactate of 7.3. The troponin of 23.1 is probably inconsequential in the setting of shock. But does need to be monitored. She has acute kidney injury with a creatinine of 3.1, her baseline is 0.7 or so. Blood alcohol is 199. States has not drank since last night. From a fluid resuscitation standpoint, she had 850 mL of crystalloid prior to arrival and another thousand here which is greater than 30mL/kg. This is in addition to the blood she received. Consulted our on-call surgeon, Dr. Robledo, but he may not need to formally consult and there does not seem to be an active bleed of significance at this point. Dr. Martinez is admitting. - Critical Care Time(min): 50 Time Includes: Direct patient care, Review records, Reassess patient, Document care, Coordinate care, Medical consult Data interpretation: Labs, Pulse ox Procedures included in critical care time: Peripheral IV, Blood draw Procedures excluded from critical care time: Central IV Departure - Departure Disposition: 66 [facility] DC/Xfer Clinical Impression: Shock circulatory, Diarrhea, Alcoholism, Lower GI bleed, Lactic acidosis, Acute kidney injury Condition: Critical Discharge Date/Time: 09/24/20 18:58
[2020-09-24 15:47] LABS: ALBUMIN 3.9 g/dL (3.2-5.5); ALBUMIN/GLOBULIN RATIO 1.4 (1.0-2.2); BILIRUBIN,TOTAL 1.1 mg/dL (0.2-1.0); CALCIUM 8.4 mg/dL (8.5-10.3); CREATININE 3.1 mg/dL (0.4-1.0); ETOH - ETHANOL 199.4 mg/dL; MAGNESIUM 2.1 mg/dL (1.7-2.8); POTASSIUM 3.2 mmol/L (3.5-5.0); TOTAL PROTEIN 6.6 g/dL (6.7-8.2)
[2020-09-24 15:48] LABS: BASOPHILS % (AUTO) 0.4 %; EOSINOPHILS % (AUTO) 0.3 %; HCT - HEMATOCRIT 40.2 % (37.0-47.0); HGB - HEMOGLOBIN 13.2 g/dL (12.0-16.0); LYMPHOCYTES # (AUTO) 1.1 10^3/uL (1.5-3.5); LYMPHOCYTES % (AUTO) 16.3 %; MEAN CORPUSCULAR HEMOGLOBIN 34.1 pg (27.0-31.0); MEAN CORPUSCULAR HGB CONC 32.8 g/dL (32.0-36.0); MEAN CORPUSCULAR VOLUME 103.9 fL (81.0-99.0); MEAN PLATELET VOLUME 8.9 fL (7.9-10.8); MONOCYTES # (AUTO) 0.3 10^3/uL (0.0-1.0); MONOCYTES % (AUTO) 4.8 %; NEUTROPHILS # (AUTO) 5.3 10^3/uL (1.5-6.6); NEUTROPHILS % (AUTO) 77.6 %; PLT - PLATELET COUNT 205 10^3/uL (130-450); RED BLOOD COUNT 3.87 10^6/uL (4.20-5.40); RED CELL DISTRIBUTION WIDTH 13.9 % (12.0-15.0); WHITE BLOOD COUNT 6.9 x10^3/uL (4.8-10.8)
[2020-09-24 15:52] LABS: INR 1.1 (0.8-1.2); PT - PROTHROMBIN TIME 11.9 secs (9.9-12.6)
[2020-09-24] MEDS ORDERED: IOPAMIDOL-300 100 ML VIAL ONE (16:01)
[2020-09-24] MEDS ORDERED: FOLIC ACID INJ 1 MG, THIAMINE INJ 100 MG, MAGNESIUM SULFATE 2 GM, MULTIVITAMIN 10 ML in... IV STA ×5 (16:02)
--- NOTE | 2020-09-24 16:18 | XRAY Report ---
PROCEDURE: Chest for Line Placement INDICATIONS: s/p R IJ CVC TECHNIQUE: One view of the chest was acquired. COMPARISON: 12/25/2019. FINDINGS: Surgical changes and devices: Central venous catheter projects to the distal SVC via a right IJ appro ach.. Lungs and pleura: No pleural effusions or pneumothorax. Lungs are clear. Mediastinum: Mediastinal contours appear normal. Heart size is normal. Bones and chest wall: Chronic left fourth fifth sixth and seventh rib fractures. No suspicious bony lesions. Overlying soft tissues appear unremarkable. IMPRESSION: Central venous catheter tip projects over the distal SVC. Reviewed by: Tess Rossi MD, PhD on 09/24/2020 4:16 PM PDT Approved by: Tess Rossi MD, PhD on 09/24/2020 4:16 PM PDT Station ID: [id number]
[2020-09-24] MEDS ORDERED: POTASSIUM CHLOR 10 MEQ/100 ML 10 MEQ/100 ML BAG IV STA (16:35)
--- NOTE | 2020-09-24 16:42 | CT Report ---
PROCEDURE: Abdomen/Pelvis WO INDICATIONS: shock, GIB, diarrhea, OBDULIA TECHNIQUE: Noncontrast 5 mm thick sections acquired from the diaphragms to the symphysis. 5 mm coronal and sagi ttal reformats were then performed. For radiation dose reduction, the following was used: automated exposure control, adjustment of mA and/or kV according to patient size. COMPARISON: None. FINDINGS: Image quality: Excellent. ABDOMEN: Lung bases: Lung bases are clear. Heart size is normal. Solid organs: Severe diffuse hepatic steatosis. Hepatomegaly has evidence by enlargement of the left lobe of the liver. Gallbladder is unremarkable. Spleen is normal in size. Pancreas is normal in cont ours. No adrenal nodules. Kidneys are normal in size, without hydronephrosis or nephrolithiasis. Peritoneum and bowel: Moderate gastric distention. Small and large bowel are of normal caliber. Occas ional diverticuli. Normal appendix. No free fluid or air. Nodes and vessels: No retroperitoneal or mesenteric adenopathy by size criteria. Aorta and inferior vena cava are normal in caliber. Miscellaneous: No ventral hernias. PELVIS: Genitourinary: Bladder is decompressed. Miscellaneous: No inguinal hernias or adenopathy. Prominent cystic lesions of both adnexal most like ly representing bilateral ovarian cysts. Bilateral hydrosalpinges or less likely. On the right, the m aximum dimensions 5.5 cm. On the left, the maximum dimension is 5.7 cm. Bones: No suspicious bony lesions. No vertebral body compression fractures. IMPRESSION: 1. Severe diffuse hepatic steatosis with enlargement of the left lobe of the liver. 2. Moderate gastric distention. 3. Probable prominent bilateral ovarian cysts. Less likely is bilateral hydrosalpinx. 4. Scattered diverticuli. Reviewed by: Rodolfo Burkett MD on 09/24/2020 4:41 PM PDT Approved by: Rodolfo Burkett MD on 09/24/2020 4:41 PM PDT Station ID: [id number]
[2020-09-24] MEDS ORDERED: PIPERACILLIN/TAZOBACTAM 3.375 GM in SODIUM CHLORIDE 0.9% MINIBAG 100 ML IV STA (16:48)
[2020-09-24] MEDS ORDERED: VANCOMYCIN INJ 1 GM in SODIUM CHLORIDE 0.9% 500 ML IV STA (16:48)
[2020-09-24] MEDS ORDERED: VANCOMYCIN INJ 1 GM in SODIUM CHLORIDE 0.9% 250 ML IV STA (16:51)
[2020-09-24 17:10] LABS: GLUCOSE, URINE (UA) NEGATIVE (NEGATIVE); KETONES,URINE (UA) TRACE mg/dL (NEGATIVE); LEUKOCYTE ESTERASE, URINE MODERATE (NEGATIVE); NITRITE,URINE NEGATIVE (NEGATIVE); OCCULT BLOOD,URINE SMALL (NEGATIVE); PH,URINE 5.5 PH (5.0-7.5); PROTEIN,URINE 100 mg/dL (NEGATIVE); UROBILINOGEN,URINE 0.2 (NORMAL) E.U./dL (NORMAL)
[2020-09-24 17:16] LABS: CORONAVIRUS 229E-RESP PCR NOT DETECTED; CORONAVIRUS HKU1-RESP PCR NOT DETECTED; CORONAVIRUS NL63-RESP PCR NOT DETECTED; CORONAVIRUS OC43-RESP PCR NOT DETECTED
[2020-09-24 17:17] LABS: B. PARAPERTUSSIS- RESP PCR PAN NOT DETECTED; B. PERTUSSIS- RESP PCR PANEL NOT DETECTED; C. PNEUMONIAE- RESP PCR PANEL NOT DETECTED; HUMAN METAPNEUMOVIRUS NOT DETECTED; INFLUENZA A- RESP PCR PANEL NOT DETECTED; INFLUENZA B - RESP PCR PANEL NOT DETECTED; M. PNEUMONIAE- RESP PCR PANEL NOT DETECTED; PARAINFLUENZA VIRUS 1 NOT DETECTED; PARAINFLUENZA VIRUS 2 NOT DETECTED; PARAINFLUENZA VIRUS 3 NOT DETECTED; PARAINFLUENZA VIRUS 4 NOT DETECTED; RHINOVIRUS/ENTEROVIRUS NOT DETECTED; RSV- RESP PCR PANEL NOT DETECTED; SARS-CoV-2 -RESP PCR PANEL NOT DETECTED
[2020-09-24 17:19] LABS: BILIRUBIN,URINE NEGATIVE (NEGATIVE); CLARITY,URINE CLOUDY (CLEAR); ICTOTEST,URINE NEGATIVE
[2020-09-24 17:20] LABS: AMORPHOUS SEDIMENT,UR Few /LPF; BACTERIA,URINE Many /HPF (None Seen); SQUAMOUS EPITHELIAL CELL,UR FEW Squamous (<= Few); WBC,URINE >25 /HPF (0-5)
[2020-09-24] MEDS ORDERED: ACETAMINOPHEN 325 MG TABLET PO PRN (17:49)
[2020-09-24] MEDS ORDERED: ONDANSETRON 4 MG/2 ML VIAL IVP PRN (17:49)
[2020-09-24] MEDS ORDERED: SODIUM CHLORIDE 0.9% 1,000 ML IV ONE ×2 (17:56→18:53)
--- NOTE | 2020-09-24 18:05 | HISTORY & PHYSICAL EXAMINATION ---
Chief Complaint - Chief Complaint Chief Complaint: weakness History of Present Illness - Admitted From Admitted From:: ED - History Obtained From Records Reviewed: yes History obtained from: pt Exam Limitations: none - History of Present Illness HPI Comment/Other: She had a similar admission 11/2019 with weakness from not eating and too much alcohol. This time she also had diarrhea yesterday and bloody bms this am. No bloody bm this afternoon She had a colonoscopy in 2014. A small polyp was removed ct IMPRESSION: 1. Severe diffuse hepatic steatosis with enlargement of the left lobe of the l iver. 2. Moderate gastric distention. 3. Probable prominent bilateral ovarian cysts. Less likely is bilateral hydrosalpinx. 4. Scattered diverticuli. Reviewed by: Rodolfo Burkett MD on 09/24/2020 4:41 PM PDT Approved by: Rodolfo Burkett MD on 09/24/2020 4:41 PM PDT History - Past Medical History Cardiovascular: reports: Hypertension Respiratory: reports: None Neuro: reports: None Endocrine/Autoimmune: reports: Type 2 diabetes GI: reports: None SAS CLINICAL PROGRAMMER: reports: None : reports: None HEENT: reports: None Psych: reports: None Musculoskeletal: reports: Osteoporosis, Scoliosis, Chronic back pain Derm: reports: None MRSA Hx?: No - Past Surgical History Ortho: reports: Other /SAS CLINICAL PROGRAMMER: reports: Oophrectomy, Other - Family & Social History Family History: Mother: Alcoholism, Father: Alcoholism Living Situation: With spouse/s.o. Social History Notes: Patient currently lives with her in [place]. She is not employed and was just approved for physical disability. Patient has a step-daughter. Patient started drinking when she was 15. She admits to drinking a fifth or a pint everyday and smokes about 10 cigarette a day. Denies any illcit drug use. - Substance History Use: Uses substance without health or social issues: Tobacco, Alcohol - POLST Patient has POLST: No POLST Status: Full Code Meds/Allgy - Home Medications Home Medications: Ambulatory Orders Medication Instructions Recorded Confirmed Metformin HCl [Glucophage Xr] 1,000 mg PO BID 11/08/12 02/06/17 glipiZIDE [Glucotrol] 10 mg PO BID 11/08/12 02/06/17 Empagliflozin [Jardiance] 10 mg PO DAILY 01/25/17 12/11/17 Potassium Chloride 10 meq PO DAILY #20 tablet.er 02/06/17 Albuterol Sulfate [Proair Hfa 2 puffs INH Q4H PRN 12/27/19 12/27/19 Inhaler] Lisinopril [Zestril] 20 mg PO DAILY 12/27/19 12/27/19 Vitamin [Trinatal Rx 1] 1 tab PO DAILYWM #30 tablet 12/27/19 Thiamine [Vitamin B-1] 100 mg PO DAILY #30 tablet 12/27/19 chlordiazePOXIDE [Librium] 5 mg PO Q6H PRN #20 capsule 12/27/19 chlordiazePOXIDE [Librium] 5 mg PO Q6H PRN #20 capsule 12/27/19 LORazepam [Lorazepam] 2 mg PO TID #7 tablet 12/28/19 - Allergies Allergies/Adverse Reactions: Allergies Allergy/AdvReac Type Severity Reaction Status Date / Time No Known Drug Allergies Allergy Verified 09/24/20 15:16 Review of Systems - Constitutional Constitutional: reports: Fatigue (10 pt ros as above otherwise unremarkable) Exam - Vital Signs Reviewed Vital Signs: Yes Vital Signs: Vital Signs x48h Temp Pulse Resp BP Pulse Ox 09/24/20 16:42 91 16 81/57 L 99 09/24/20 16:30 93 17 75/37 L 99 09/24/20 16:10 86/53 L 09/24/20 16:00 92 18 77/45 L 98 09/24/20 15:40 96/41 L 09/24/20 15:30 92 16 71/48 L 98 09/24/20 15:07 36.3 C L 89 16 68/53 L 100 - Physical Exam General Appearance: positive: No acute distress, Alert Eyes Bilateral: positive: PERRL, EOMI ENT: positive: No signs of dehydration Neck: positive: Thyroid nml Respiratory: positive: Chest non-tender, Breath sounds nml Cardiovascular: positive: Regular rate & rhythm Abdomen: positive: Non-tender, No distention Neurologic/Psychiatric: positive: Oriented x3 Conclusion/Plan - Lab Results Fish Bones: 09/24/20 15:40 09/24/20 15:20 - Diagnostic Imaging Results Diagnostic Imaging Results: positive: Read independently - Other Other Results/Comments: hypotension, weakness. diarrhea yesterday which is not typical for her. bloody stool this am. improved this afternoon ct diverticulosis without intestinal inflammation. will follow closely
--- NOTE | 2020-09-24 18:29 | HISTORY & PHYSICAL EXAMINATION ---
Chief Complaint - Chief Complaint Chief Complaint: diarrhea, hypotension, blood in stool, falling History of Present Illness - Admitted From Admitted From:: [facility] ED - History Obtained From Records Reviewed: yes History obtained from: patient - History of Present Illness HPI Comment/Other: Patient is 60-year-old female who was brought in by EMS with complaint of frequent diarrhea, blood in stool and frequent falls. She has a significant history of alcohol abuse and drinks about 1/5 of vodka daily. She reports last drank yesterday however her blood alcohol level was 199. She started experiencing diarrhea yesterday with increased frequency today. She reports about 5 episodes of diarrhea today and noticing blood in her stool. At some point in the day she was trying to stand up but kept falling because of weakness and dizziness. As a result she called EMS. Upon arrival it was reported that her blood pressure was 44/29. She was given about 850 mils of IV hydration in the field. Upon arrival to the ED her blood pressure was 65/40. Further work-up included a lactic acid which was 7.3. For concern about possible GI bleed she was immediately transfused 2 units of unmatched blood. Initial blood sample obtained was hemolyzed. The repeat blood sample was done after transfusion of the first unit of blood. Hemoglobin on this blood draw was 13.2. CT abdomen/pelvis showed severe diffuse hepatic steatosis with enlargement of t he left lower lobe of the liver. It also showed moderate gastric distention. Probable prominent bilateral ovarian cysts. Less likely is bilateral hydrosalpinx. Findings showed scattered diverticuli. The patient denies hematemesis. At bedside she was drowsy but readily arousable to verbal stimuli and was able to give a history. She denied chest pain, dyspnea, fever or chills. She reports diffuse abdominal pain which is mild. She mainly complains of pain in the thoracic spine region. Her last colonoscopy was 5 to 6 years ago during which a couple of polyps were removed. Chest x-ray was unremarkable. History - Past Medical History Cardiovascular: reports: Hypertension Respiratory: reports: None Neuro: reports: None Endocrine/Autoimmune: reports: Type 2 diabetes GI: reports: None TRAFFIC SUPERVISOR: reports: None : reports: None HEENT: reports: None Psych: reports: None Musculoskeletal: reports: Osteoporosis, Scoliosis, Chronic back pain Derm: reports: None MRSA Hx?: No - Past Surgical History Ortho: reports: Other /TRAFFIC SUPERVISOR: reports: Oophrectomy, Other - Family & Social History Family History: Mother: Alcoholism, Father: Alcoholism Living Situation: With spouse/s.o. Social History Notes: Patient currently lives with her in [place]. She is not employed and was just approved for physical disability. Patient has a step-daughter. Patient started drinking when she was 15. She admits to drinking a fifth or a pint everyday and smokes about 10 cigarette a day. Denies any illcit drug use. - Substance History Use: Uses substance without health or social issues: Tobacco, Alcohol - POLST Patient has POLST: No POLST Status: Full Code Meds/Allgy - Home Medications Home Medications: Ambulatory Orders Medication Instructions Recorded Confirmed Metformin HCl [Glucophage Xr] 1,000 mg PO BID 11/08/12 02/06/17 glipiZIDE [Glucotrol] 10 mg PO BID 11/08/12 02/06/17 Empagliflozin [Jardiance] 10 mg PO DAILY 03/23/16 02/06/17 Albuterol Sulfate [Proair Hfa 2 puffs INH Q4H PRN 12/27/19 09/25/20 Inhaler] Lisinopril [Zestril] 20 mg PO DAILY 12/27/19 09/25/20 tiZANidine [Zanaflex] 4 mg PO TID PRN 09/25/20 09/25/20 - Allergies Allergies/Adverse Reactions: Allergies Allergy/AdvReac Type Severity Reaction Status Date / Time No Known Drug Allergies Allergy Verified 09/24/20 15:16 Review of Systems - Constitutional Constitutional: reports: Fatigue, Weakness. denies: Fever - Eyes Eyes: denies: Pain - Ears, Nose & Throat Ears, Nose & Throat: denies: Ear pain - Cardiovascular Cariovascular: denies: Irregular heart rate, Palpitations, Chest pain, Edema, Lightheadedness, Syncope - Respiratory Respiratory: denies: Cough, Wheezing, Snoring, SOB at rest, SOB with exertion - Gastrointestinal Gastrointestinal: reports: Abdominal pain, Diarrhea. denies: Abdominal distention, Nausea, Vomiting - Genitourinary Genitourinary: denies: Dysuria, Frequency, Urgency, Hematuria - Musculoskeletal Musculoskeletal: denies: Muscle pain, Back pain, Muscle aches, Stiffness - Integumentary Integumentary: reports: Other (flushed). denies: Rash, Pruritis - Neurological Neurological: denies: General weakness, Focal weakness, Headache Prior Level of Functionality: She is independent of activities of daily living Exam - Vital Signs Vital Signs: Vital Signs x48h Temp Pulse Resp BP Pulse Ox 09/24/20 16:42 91 16 81/57 L 99 09/24/20 16:30 93 17 75/37 L 99 09/24/20 16:10 86/53 L 09/24/20 16:00 92 18 77/45 L 98 09/24/20 15:40 96/41 L 09/24/20 15:30 92 16 71/48 L 98 09/24/20 15:07 36.3 C L 89 16 68/53 L 100 - Physical Exam General Appearance: positive: Mild distress, Moderate distress, Other (Drowsy but readily arousable to verbal stimuli. Responds appropriately to questions asked. Week) Eyes Bilateral: positive: PERRL, EOMI ENT: positive: Dry mucous membranes Neck: positive: No JVD, Trachea midline Respiratory: positive: Chest non-tender, No respiratory distress, Wheezes (Inspiratory and expiratory. Chronic) Cardiovascular: positive: No murmur, Tachycardia (Mild) Abdomen: positive: Nml bowel sounds, No distention, Tenderness (Mild diffuse tenderness), Hepatomegaly. negative: Guarding, Rebound Back: positive: Nml inspection Skin: positive: No rash, Warm, Dry, Other (Flushed skin) Extremities: positive: Non-tender, Full ROM, Nml appearance, No pedal edema Neurologic/Psychiatric: positive: Oriented x3, Mood/affect nml Sepsis Event Note (H) - Evaluation Current Stage of Sepsis: Sepsis Possible source of Sepsis: positive: GI tract/intra-abdominal, Genitourinary - Sepsis Criteria Sepsis Criteria: SBP less than 90 mmHg, Metabolic: lactate > 2 mmol/L Conclusion/Plan - Problem List (1) Shock Conclusion/Plan: Etiology undetermined. Differential includes hypovolemic shock from dehydration vs septic (source unknown) vs hemorrhagic from GI bleed Patient received a total fluid of 30 mL/kg in the field and in the emergency department. We will administer another 1 L bolus of normal saline and then continue IV hydration with normal saline at 125 mL/h. She had a central line placed. If she does not meet a goal of mean arterial pressure of at least [address] on pressors. Zosyn 3.375 g IV was initiated. We will continue. Patient's initial lactic acid was 7.3. Anticipating improvement with IV hydration. We will trend every 4 hours X4. Blood cultures, stool cultures and C. difficile pending. Patient was admitted to the ICU. (2) OBDULIA (acute kidney injury) Conclusion/Plan: Creatinine was 3.1 with an estimated GFR of 15. At baseline her creatinine is 0.7. Likely secondary to hypoperfusion related to shock. We will hold patient's lisinopril, Metformin and glipizide Patient has been aggressively hydrated. We will continue IV hydration with normal saline at 125 mL/h. Anticipating improvement in patient's creatinine. We will continue to monitor with morning labs. (3) Alcoholism Conclusion/Plan: Patient drinks 1/5 of vodka daily. Her blood alcohol level today was 199. CIWA protocol initiated. Patient started on Librium 25 mg p.o. twice daily. (4) Diarrhea Conclusion/Plan: Etiology undetermined. C. difficile pending. Patient is on Zosyn 3.375 g IV every 8 hours. (5) Lactic acidosis Conclusion/Plan: This could be secondary to hypoperfusion. from dehydration vs sepsis. Also, given patient's extensive history of alcohol abuse, the elevated lactic acid could be due to poor liver function We will continue IV hydration with normal saline at 125 mL/h. We will trend lactic acid every 4 hours x4 We will also hold the patient's Metformin. (6) Diabetes Conclusion/Plan: Will hold metformin, glipizide and Jardiance Will order SSI and Accu check qac and hs Clear liquid diet ordered Qualifiers: Diabetes mellitus type: type 2 (7) Elevated troponin Conclusion/Plan: Likely Demand ischemia 2/2 hypoperfusion Initial Troponin was 23.1. Will trend troponin x2 - Lab Results Fish Bones: 09/25/20 04:20 09/25/20 04:20 Core Measures - Anticipated LOS I expect patient to be DC'd or transferred within 96 hours.: Yes - DVT/VTE - Prophylaxis VTE/DVT Device ordered at admit?: Yes
[2020-09-24 18:31] LABS: MUDS CUTOFF CONCENTRATIONS CUTOFF CONC BELOW:
[2020-09-24 18:44] LABS: AMPHETAMINE SCREEN,URINE NEGATIVE (NEGATIVE); BARBITURATE SCREEN,UR NEGATIVE (NEGATIVE); BENZODIAZEPINES SCREEN, URINE NEGATIVE (NEGATIVE); COCAINE SCREEN URINE NEGATIVE (NEGATIVE); METHADONE SCREEN, URINE NEGATIVE (NEGATIVE); METHAMPHETAMINES SCREEN, URINE NEGATIVE (NEGATIVE); OPIATE SCREEN, URINE NEGATIVE (NEGATIVE); OXYCODONE SCREEN, URINE NEGATIVE (NEGATIVE); PROPOXYPHENE SCREEN, URINE NEGATIVE (NEGATIVE); THC CANNABINOID SCREEN, URINE NEGATIVE (NEGATIVE); TRICYCLIC ANTIDEPRESSANT,URINE NEGATIVE (NEGATIVE)
[2020-09-24] MEDS: SODIUM CHLORIDE 0.9% 1,000 ML IV SCH (19:58)
[2020-09-24] MEDS: chlordiazePOXIDE 25 MG CAPSULE PO SCH (20:26)
[2020-09-24] MEDS: INSULIN ASPART 300 UNIT/3 ML PEN SUBQ SCH (21:28)
[2020-09-24] MEDS ORDERED: PIPERACILLIN/TAZOBACTAM 3.375 GM in SODIUM CHLORIDE 0.9% MINIBAG 100 ML IV SCH (21:30)
[2020-09-24] MEDS: SODIUM CHLORIDE FLUSH 0.9% 10 ML SYRINGE IVP PRN (22:05)
[2020-09-25] MEDS: SODIUM CHLORIDE FLUSH 0.9% 10 ML SYRINGE IVP PRN ×3 (00:53→20:17)
[2020-09-25] MEDS: SODIUM CHLORIDE FLUSH 0.9% 10 ML SYRINGE IVP SCH ×4 (01:05→19:31)
[2020-09-25] MEDS: SODIUM CHLORIDE 0.9% 1,000 ML IV SCH ×4 (04:03→21:30)
[2020-09-25] MEDS: MORPHINE 2 MG/ML CARPUJECT IVP PRN ×2 (04:37→20:12)
[2020-09-25 05:03] LABS: BASOPHILS % (AUTO) 0.4 %; EOSINOPHILS % (AUTO) 0.2 %; HCT - HEMATOCRIT 39.3 % (37.0-47.0); HGB - HEMOGLOBIN 13.5 g/dL (12.0-16.0); LYMPHOCYTES # (AUTO) 1.1 10^3/uL (1.5-3.5); LYMPHOCYTES % (AUTO) 9.7 %; MEAN CORPUSCULAR HGB CONC 34.4 g/dL (32.0-36.0); MEAN CORPUSCULAR VOLUME 101.8 fL (81.0-99.0); MEAN PLATELET VOLUME 9.8 fL (7.9-10.8); MONOCYTES # (AUTO) 0.6 10^3/uL (0.0-1.0); NEUTROPHILS # (AUTO) 9.4 10^3/uL (1.5-6.6); NEUTROPHILS % (AUTO) 84.3 %; PLT - PLATELET COUNT 160 10^3/uL (130-450); RED BLOOD COUNT 3.86 10^6/uL (4.20-5.40); RED CELL DISTRIBUTION WIDTH 15.6 % (12.0-15.0); WHITE BLOOD COUNT 11.2 x10^3/uL (4.8-10.8)
[2020-09-25 05:11] LABS: ALBUMIN 3.2 g/dL (3.2-5.5); ALBUMIN/GLOBULIN RATIO 1.5 (1.0-2.2); BILIRUBIN,TOTAL 1.6 mg/dL (0.2-1.0); CALCIUM 7.4 mg/dL (8.5-10.3); CREATININE 1.6 mg/dL (0.4-1.0); MAGNESIUM 2.1 mg/dL (1.7-2.8); POTASSIUM 3.9 mmol/L (3.5-5.0); TOTAL PROTEIN 5.3 g/dL (6.7-8.2)
[2020-09-25 05:47] LABS: RBC MORPHOLOGY (MULTIPLE) NORMAL APPEARANCE (NORMAL)
[2020-09-25 05:48] LABS: DIFFERENTIAL COMMENT MANUAL=AUTO DIFF; PLATELET ESTIMATE, MANUAL NORMAL (130-450,000) (NORMAL)
[2020-09-25] MEDS: chlordiazePOXIDE 25 MG CAPSULE PO SCH ×2 (06:47→18:36)
--- NOTE | 2020-09-25 08:46 | PROVIDER PROGRESS NOTE ---
Assessment/Plan - Problem List (1) Shock Assessment/Plan: Septic shock. Secondary to C. difficile colitis and UTI. E. coli grew on urine cultures. Patient was started on vancomycin 125 mg p.o. 4 times daily. Zosyn was switched to Rocephin 1 g IV daily. Blood cultures are pending. Continue IV hydration with normal saline at 100ml/H. (2) C. difficile colitis Assessment/Plan: On vancomycin 125mg po qid (3) OBDULIA (acute kidney injury) Assessment/Plan: Improved. Patient's creatinine today is 1.6 with an estimated GFR of 33. This is an improvement from a creatinine of 3.1 yesterday with an estimated GFR of 15. We will continue IV hydration with normal saline at 100 mL/h. (4) Alcoholism Assessment/Plan: Patient drinks 1/5 of vodka daily. Her blood alcohol level at admission was 199. CIWA protocol initiated. Patient started on Librium 25 mg p.o. twice daily. (5) Diarrhea Assessment/Plan: Patient was positive for C. difficile (6) Lactic acidosis Assessment/Plan: Resolved. Lactic acid improved from 7.3 to 1.1 This was secondary to hypoperfusion. from dehydration and sepsis. (7) Diabetes Qualifiers: Diabetes mellitus type: type 2 Assessment/Plan: Will hold metformin, glipizide and Jardiance Will order SSI and Accu check qac and hs HgA1C is 5.8. On a full liquid diet. (8) Elevated troponin Assessment/Plan: Likely Demand ischemia 2/2 hypoperfusion Troponin trend was 23.1 > 27.7 > 428.3 > 386.0. 2D echo cardiogram pending - Current Meds Current Meds: Current Medications Generic Name Dose Route Start Last Admin Trade Name Freq PRN Reason Stop Dose Admin Chlordiazepoxide HCl 25 mg 09/24/20 19:00 09/25/20 06:47 Chlordiazepoxide 25 Mg Capsule PO 25 mg Q12H THERESE Administration Sodium Chloride 1,000 mls @ 125 mls/hr 09/24/20 18:00 09/25/20 04:03 Normal Saline 0.9% IV 125 mls/hr .Q8H THERESE Administration Insulin Aspart 1 - 5 unit 09/24/20 21:00 09/24/20 21:28 Insulin Aspart 300 Unit/3 Ml Pen SUBQ Not Given 0800,1200,1700,2100 [facility] Protocol Morphine Sulfate 2 mg 09/24/20 17:49 09/25/20 04:37 Morphine 2 Mg/Ml Carpuject IVP 2 mg Q2HR PRN Administration Pain 8 to 10 Sodium Chloride 10 ml 09/25/20 01:00 09/25/20 01:05 Sodium Chloride Flush 0.9% 10 Ml Syringe IVP 10 ml 0100,0900,1700 THERESE Administration Sodium Chloride 20 ml 09/24/20 20:10 09/25/20 04:23 Sodium Chloride Flush 0.9% 10 Ml Syringe IVP 20 ml PRN PRN Administration After Blood Draw - Lab Result Fish Bone Diagrams: 09/25/20 04:20 09/25/20 04:20 - Additional Planning My Orders: My Active Orders 09/24/20 Dinner Clear Liquid Diet [DIET] 09/24/20 17:49 Activity Orders [RC] Q2HR Daily Weight [RC] 0600 IO [RC] Q1HR Initiate Bowel Care Protocol [RC] QSHIFT Initiate Flu Vaccine Screening [RC] ONCE Initiate ICU Electrolyte Prot. [RC] .protocol Initiate Line Care Protocol [RC] .protocol Initiate Personal Care Protoco [RC] .protocol Initiate Pneumonia Vaccine Scr [RC] ONCE Vital Signs [RC] Q1HR Acetaminophen [Tylenol] 650 mg PO Q6HR PRN Morphine Inj (Carpuject) [Morphine (Carpuject)] 2 mg IVP Q2HR PRN Ondansetron Inj [Zofran Inj] 4 mg IVP Q6HR PRN Sodium Chloride Flush 0.9% [Normal Saline Flush 0.9%] 10 ml IVP PRN PRN oxyCODONE [Roxicodone] 5 mg PO Q4HR PRN Code Status [OTHERS] Routine Condition of Patient [OTHERS] Routine DVT Prophylaxis [OTHERS] Routine 09/24/20 17:52 SCDs [RC] QSHIFT Telemetry- [RC] Q4HR 09/24/20 17:57 CIWA - AR Score Card [RC] Q4HR Marie Insertion [RC] QSHIFT LORazepam INJ [Ativan Inj (Vial)] 1 mg IVP Q30M PRN 09/24/20 18:00 Sodium Chloride 0.9% [Normal Saline 0.9%] 1,000 ml IV 125 mls/hr 09/24/20 18:56 Blood Glucose Checks - Eating [RC] 0800,1200,1700,2100 Initiate Hypoglycemia Protocol [RC] .protocol 09/24/20 19:00 chlordiazePOXIDE [Librium] 25 mg PO Q12H 09/24/20 20:10 Sodium Chloride Flush 0.9% [Normal Saline Flush 0.9%] 20 ml IVP PRN PRN 09/24/20 21:00 Insulin Aspart [NovoLOG] 1 - 5 unit SUBQ 0800,1200,1700,2100 09/25/20 CALCIUM, IONIZED ([facility]) [BG] Urgent 09/25/20 01:00 Sodium Chloride Flush 0.9% [Normal Saline Flush 0.9%] 10 ml IVP 0100,0900,1700 09/25/20 04:20 HEMOGLOBIN A1c% [CHEM] DAILYLAB 09/25/20 08:45 Echo Transthoracic Complete [ECHO] Routine 09/25/20 09:00 Pantoprazole [Protonix] 40 mg IVP BID Vitamin [Trinatal Rx 1] 1 tab PO DAILY Thiamine [Vitamin B-1] 100 mg PO DAILY Vancomycin [Vancocin] 125 mg PO QID 09/25/20 17:00 Saccharomyces Boulardii [Florastor] 250 mg PO BIDWM 09/26/20 05:00 BMP - BASIC METABOLIC PANEL [CHEM] DAILYLAB CBC - COMP BLD CT W/AUTO DIFF [HEME] DAILYLAB MAGNESIUM [CHEM] DAILYLAB PHOSPHORUS [CHEM] DAILYLAB 09/27/20 05:00 BMP - BASIC METABOLIC PANEL [CHEM] DAILYLAB CBC - COMP BLD CT W/AUTO DIFF [HEME] DAILYLAB 09/28/20 05:00 BMP - BASIC METABOLIC PANEL [CHEM] DAILYLAB CBC - COMP BLD CT W/AUTO DIFF [HEME] DAILYLAB 09/29/20 05:00 BMP - BASIC METABOLIC PANEL [CHEM] DAILYLAB CBC - COMP BLD CT W/AUTO DIFF [HEME] DAILYLAB Subjective - Subjective Patient Reports: Other (Patient is more alert, awake and oriented today. She denied any significant pain. She still appears flushed.) Objective Vital Signs: Vital Signs - 24 hr 09/24/20 09/24/20 09/24/20 15:07 15:30 15:40 Temperature 36.3 C L 36.9 C Heart Rate 89 92 Heart Rate [ Monitoring electrodes] Respiratory 16 16 Rate Blood Pressure 68/53 L 71/48 L 96/41 L Blood Pressure [Left Brachial artery] O2 Saturation 100 98 09/24/20 09/24/20 09/24/20 16:00 16:10 16:30 Temperature 36.8 C Heart Rate 92 93 Heart Rate [ Monitoring electrodes] Respiratory 18 17 Rate Blood Pressure 77/45 L 86/53 L 75/37 L Blood Pressure [Left Brachial artery] O2 Saturation 98 99 09/24/20 09/24/20 09/24/20 16:42 16:55 17:00 Temperature 36.8 C Heart Rate 91 91 89 Heart Rate [ Monitoring electrodes] Respiratory 16 16 16 Rate Blood Pressure 81/57 L 68/53 L 78/49 L Blood Pressure [Left Brachial artery] O2 Saturation 99 94 98 09/24/20 09/24/20 09/24/20 17:30 18:00 18:15 Temperature Heart Rate 100 94 97 Heart Rate [ Monitoring electrodes] Respiratory 16 17 16 Rate Blood Pressure 88/49 L 90/51 L 79/56 L Blood Pressure [Left Brachial artery] O2 Saturation 97 98 97 09/24/20 09/24/20 09/24/20 18:30 18:50 19:00 Temperature 36.6 C Heart Rate 96 93 Heart Rate [ 103 H Monitoring electrodes] Respiratory 16 16 16 Rate Blood Pressure 79/56 L 87/48 L Blood Pressure 120/68 [Left Brachial artery] O2 Saturation 99 99 98 09/24/20 09/24/20 09/24/20 20:00 21:00 22:00 Temperature Heart Rate Heart Rate [ 98 99 101 H Monitoring electrodes] Respiratory 19 17 16 Rate Blood Pressure Blood Pressure 110/67 116/81 H 128/85 H [Left Brachial artery] O2 Saturation 99 98 98 09/24/20 09/25/20 09/25/20 23:00 00:00 01:00 Temperature 36.6 C Heart Rate Heart Rate [ 110 H 100 101 H Monitoring electrodes] Respiratory 16 15 14 Rate Blood Pressure Blood Pressure 129/66 118/76 133/72 H [Left Brachial artery] O2 Saturation 96 98 98 09/25/20 09/25/20 09/25/20 02:00 03:00 04:00 Temperature 36.6 C Heart Rate Heart Rate [ 102 H 96 96 Monitoring electrodes] Respiratory 15 15 15 Rate Blood Pressure Blood Pressure 137/79 H 124/85 H 135/72 H [Left Brachial artery] O2 Saturation 97 99 97 09/25/20 09/25/20 09/25/20 05:00 06:00 07:00 Temperature Heart Rate Heart Rate [ 96 96 96 Monitoring electrodes] Respiratory 15 13 15 Rate Blood Pressure Blood Pressure 112/64 117/78 135/77 H [Left Brachial artery] O2 Saturation 97 96 96 09/25/20 08:00 Temperature 37.2 C Heart Rate Heart Rate [ 80 Monitoring electrodes] Respiratory 12 Rate Blood Pressure Blood Pressure 160/80 H [Left Brachial artery] O2 Saturation 98 Oxygen O2 Source Room air I&O (Last 24 Hrs): Intake and Output Totals x24h 09/23/20 09/24/20 09/25/20 23:59 23:59 23:59 Intake Total 1657.593 6584.833 Output Total 200 530 Balance 1594.367 640.833 General: Alert, Oriented x3, Cooperative, No acute distress HEENT: PERRLA, EOMI Neck: Supple, No JVD Neuro: Alert, Non Focal, Oriented Times 3 Cardiovascular: Regular rate, Normal S1, Normal S2 Respiratory: Chest non-tender, No respiratory distress, Breath sounds nml Abdomen: Normal bowel sounds, Soft, No tenderness Extremities: No clubbing, No cyanosis, No edema Skin: No rashes, No breakdown - Results Results: Laboratory Results WBC 11.2 x10^3/uL (4.8-10.8) H 09/25/20 04:20 RBC 3.86 10^6/uL (4.20-5.40) L 09/25/20 04:20 Hgb 13.5 g/dL (12.0-16.0) 09/25/20 04:20 Hct 39.3 % (37.0-47.0) 09/25/20 04:20 MCV 101.8 fL (81.0-99.0) H 09/25/20 04:20 MCH 35.0 pg (27.0-31.0) H 09/25/20 04:20 MCHC 34.4 g/dL (32.0-36.0) 09/25/20 04:20 RDW 15.6 % (12.0-15.0) H 09/25/20 04:20 Plt Count 160 10^3/uL (130-450) 09/25/20 04:20 MPV 9.8 fL (7.9-10.8) 09/25/20 04:20 Neut # (Auto) 9.4 10^3/uL (1.5-6.6) H 09/25/20 04:20 Lymph # (Auto) 1.1 10^3/uL (1.5-3.5) L 09/25/20 04:20 [place] # (Auto) 0.6 10^3/uL (0.0-1.0) 09/25/20 04:20 Eos # (Auto) 0.0 10^3/uL (0.0-0.7) 09/25/20 04:20 Baso # (Auto) 0.0 10^3/uL (0.0-0.1) 09/25/20 04:20 Absolute Nucleated RBC 0.00 x10^3/uL 09/25/20 04:20 Band Neuts % (Manual) Not Reportable 09/25/20 04:20 Abnorm Lymph % (Manual) Not Reportable 09/25/20 04:20 Nucleated RBC % 0.0 /100WBC 09/25/20 04:20 Neutrophils # (Manual) Not Reportable 09/25/20 04:20 Lymphocytes # (Manual) Not Reportable 09/25/20 04:20 Monocytes # (Manual) Not Reportable 09/25/20 04:20 Eosinophils # (Manual) Not Reportable 09/25/20 04:20 Basophils # (Manual) Not Reportable 09/25/20 04:20 Differential Comment MANUAL=AUTO DIFF 09/25/20 04:20 Platelet Estimate NORMAL (130-450,000) (NORMAL) 09/25/20 04:20 RBC Morph Micro Appear NORMAL APPEARANCE (NORMAL) 09/25/20 04:20 PT 11.9 secs (9.9-12.6) 09/24/20 15:40 INR 1.1 (0.8-1.2) 09/24/20 15:40 Sodium 132 mmol/L (135-145) L 09/25/20 04:20 Potassium 3.9 mmol/L (3.5-5.0) 09/25/20 04:20 Chloride 99 mmol/L (101-111) L 09/25/20 04:20 Carbon Dioxide 13 mmol/L (21-32) L 09/25/20 04:20 Anion Gap 20.0 (6-13) H 09/25/20 04:20 BUN 18 mg/dL (6-20) 09/25/20 04:20 Creatinine 1.6 mg/dL (0.4-1.0) H 09/25/20 04:20 Estimated GFR (MDRD) 33 (>89) L 09/25/20 04:20 Glucose 149 mg/dL (70-100) H 09/25/20 04:20 Lactic Acid 0.9 mmol/L (0.5-2.2) 09/25/20 08:06 Calcium 7.4 mg/dL (8.5-10.3) L 09/25/20 04:20 Phosphorus 5.0 mg/dL (2.5-4.6) H 09/25/20 04:20 Magnesium 2.1 mg/dL (1.7-2.8) 09/25/20 04:20 Total Bilirubin 1.6 mg/dL (0.2-1.0) H 09/25/20 04:20 AST 92 IU/L (10-42) H 09/25/20 04:20 ALT 39 IU/L (10-60) 09/25/20 04:20 Alkaline Phosphatase 43 IU/L (42-121) 09/25/20 04:20 Ammonia 20.5 umol/L (7-35) 09/24/20 15:40 Troponin I High Sens 386.0 ng/L (2.3-14.8) H* 09/25/20 04:20 B-Natriuretic Peptide 45 pg/mL (5-100) 09/24/20 15:40 Total Protein 5.3 g/dL (6.7-8.2) L 09/25/20 04:20 Albumin 3.2 g/dL (3.2-5.5) 09/25/20 04:20 Globulin 2.1 g/dL (2.1-4.2) 09/25/20 04:20 Albumin/Globulin Ratio 1.5 (1.0-2.2) 09/25/20 04:20 Lipase 51 U/L (22-51) 09/24/20 15:20 Urine Color YELLOW 09/24/20 16:45 Urine Clarity CLOUDY (CLEAR) 09/24/20 16:45 Urine pH 5.5 PH (5.0-7.5) 09/24/20 16:45 Ur Specific Bland 1.025 (1.002-1.030) 09/24/20 16:45 Urine Protein 100 mg/dL (NEGATIVE) H 09/24/20 16:45 Urine Glucose (UA) NEGATIVE mg/dL (NEGATIVE) 09/24/20 16:45 Urine Ketones TRACE mg/dL (NEGATIVE) 09/24/20 16:45 Urine Occult Blood SMALL (NEGATIVE) H 09/24/20 16:45 Urine Nitrite NEGATIVE (NEGATIVE) 09/24/20 16:45 Urine Bilirubin NEGATIVE (NEGATIVE) 09/24/20 16:45 Urine Urobilinogen 0.2 (NORMAL) E.U./dL (NORMAL) 09/24/20 16:45 Ur Leukocyte Esterase MODERATE (NEGATIVE) H 09/24/20 16:45 Urine RBC 6-10 /HPF (0-5) H 09/24/20 16:45 Urine WBC >25 /HPF (0-5) H 09/24/20 16:45 Ur Squamous Epith Cells FEW Squamous (<= Few) 09/24/20 16:45 Amorphous Sediment Few /LPF 09/24/20 16:45 Urine Bacteria Many /HPF (None Seen) H 09/24/20 16:45 Ur Microscopic Review INDICATED 09/24/20 16:45 Urine Culture Comments INDICATED 09/24/20 16:45 Nasal Adenovirus (PCR) NOT DETECTED 09/24/20 16:04 Nasal B. parapertussis DNA (PCR) NOT DETECTED 09/24/20 16:04 Nasal Coronavir 229E PCR NOT DETECTED 09/24/20 16:04 Nasal Coronavir HKU1 PCR NOT DETECTED 09/24/20 16:04 Nasal Coronavir NL63 PCR NOT DETECTED 09/24/20 16:04 Nasal Coronavir OC43 PCR NOT DETECTED 09/24/20 16:04 Nasal Enterovir/Rhinovir PCR NOT DETECTED 09/24/20 16:04 Nasal Influenza B PCR NOT DETECTED 09/24/20 16:04 Nasal Influenza A PCR NOT DETECTED 09/24/20 16:04 Nasal Parainfluen 1 PCR NOT DETECTED 09/24/20 16:04 Nasal Parainfluen 2 PCR NOT DETECTED 09/24/20 16:04 Nasal Parainfluen 3 PCR NOT DETECTED 09/24/20 16:04 Nasal Parainfluen 4 PCR NOT DETECTED 09/24/20 16:04 Nasal RSV (PCR) NOT DETECTED 09/24/20 16:04 Nasal Screen MRSA (PCR) NEGATIVE (NEGATIVE) 09/24/20 19:09 Nasal B.pertussis DNA PCR NOT DETECTED 09/24/20 16:04 Nasal C.pneumoniae (PCR) NOT DETECTED 09/24/20 16:04 [place] Human Metapneumo PCR NOT DETECTED 09/24/20 16:04 Nasal M.pneumoniae (PCR) NOT DETECTED 09/24/20 16:04 Nasal SARS-CoV-2 (PCR) NOT DETECTED 09/24/20 16:04 Stl C. diff Tox B Gene POSITIVE (NEGATIVE) A* 09/24/20 20:22 Urine Opiates Screen NEGATIVE (NEGATIVE) 09/24/20 18:25 Ur Oxycodone Screen NEGATIVE (NEGATIVE) 09/24/20 18:25 Urine Methadone Screen NEGATIVE (NEGATIVE) 09/24/20 18:25 Ur Propoxyphene Screen NEGATIVE (NEGATIVE) 09/24/20 18:25 Ur Barbiturates Screen NEGATIVE (NEGATIVE) 09/24/20 18:25 Ur Tricyclics Screen NEGATIVE (NEGATIVE) 09/24/20 18:25 Ur Phencyclidine Scrn NEGATIVE (NEGATIVE) 09/24/20 18:25 Ur Amphetamine Screen NEGATIVE (NEGATIVE) 09/24/20 18:25 U Methamphetamines Scrn NEGATIVE (NEGATIVE) 09/24/20 18:25 U Benzodiazepines Scrn NEGATIVE (NEGATIVE) 09/24/20 18:25 Urine Cocaine Screen NEGATIVE (NEGATIVE) 09/24/20 18:25 U Cannabinoids Screen NEGATIVE (NEGATIVE) 09/24/20 18:25 Ethyl Alcohol 199.4 mg/dL 09/24/20 15:20 Blood Type O NEGATIVE 09/24/20 15:20 Blood Type Recheck O NEGATIVE 09/24/20 15:20 Antibody Screen NEGATIVE 09/24/20 15:20 Crossmatch IS Only See Detail 09/24/20 15:20 - Procedures Procedures: Procedures ENDOSC POLYPECTOMY OF LG INTEST (08/07/14) ABX Reporting Has patient been on IV antibiotics over the past 48 hours?: Yes
[2020-09-25] MEDS: INSULIN ASPART 300 UNIT/3 ML PEN SUBQ SCH ×4 (08:58→20:35)
[2020-09-25] MEDS ORDERED: PANTOPRAZOLE 40 MG VIAL IVP SCH (09:00)
[2020-09-25] MEDS: PRENATAL VITAMIN TABLET PO SCH (09:09)
[2020-09-25] MEDS: VANCOMYCIN 125 MG CAPSULE PO SCH ×4 (09:09→20:20)
[2020-09-25] MEDS: oxyCODONE 5 MG TABLET PO PRN ×3 (09:10→23:15)
[2020-09-25] MEDS: THIAMINE 100 MG TABLET PO SCH (09:10)
[2020-09-25 09:11] LABS: CALCIUM, IONIZED 1.03 mmol/L (1.15-1.33); VBG PH 7.249 (7.31-7.41)
[2020-09-25] MEDS: LORazepam 2 MG/ML VIAL IVP PRN ×7 (09:14→23:15)
--- NOTE | 2020-09-25 09:31 | PROVIDER PROGRESS NOTE ---
Subjective - Prog Note Date Prog Note Date: 09/25/20 - Subjective Pt reports feeling: Improved Objective - Vital Signs/Intake & Output Vital Signs: Vital Signs x48h Temp Pulse Resp BP Pulse Ox 09/25/20 08:00 37.2 C 80 12 160/80 H 98 09/25/20 07:00 96 15 135/77 H 96 09/25/20 06:00 96 13 117/78 96 09/25/20 05:00 96 15 112/64 97 09/25/20 04:00 36.6 C 96 15 135/72 H 97 09/25/20 03:00 96 15 124/85 H 99 09/25/20 02:00 102 H 15 137/79 H 97 Intake & Output: Intake & Output 09/22/20 09/23/20 09/24/20 09/25/20 23:59 23:59 23:59 23:59 Intake Total 7693.971 1491.833 Output Total 200 530 Balance 1594.367 640.833 - Objective General Appearance: positive: No acute distress, Other (resting comfortably) Respiratory: positive: No respiratory distress Abdomen: positive: No distention - Lab Results Fish Bones: 09/25/20 04:20 09/25/20 04:20 Other Labs: Lab Results x24hrs 09/25/20 09/25/20 09/25/20 Range/Units 08:50 08:06 04:20 WBC (4.8-10.8) x10^3/uL RBC (4.20-5.40) 10^6/uL Hgb (12.0-16.0) g/dL Hct (37.0-47.0) % MCV (81.0-99.0) fL MCH (27.0-31.0) pg MCHC (32.0-36.0) g/dL RDW (12.0-15.0) % Plt Count (130-450) 10^3/uL MPV (7.9-10.8) fL Neut # (Auto) (1.5-6.6) 10^3/uL Lymph # (Auto) (1.5-3.5) 10^3/uL Grand # (Auto) (0.0-1.0) 10^3/uL Eos # (Auto) (0.0-0.7) 10^3/uL Baso # (Auto) (0.0-0.1) 10^3/uL Absolute Nucleated RBC x10^3/uL Band Neuts % (Manual) Abnorm Lymph % (Manual) Nucleated RBC % /100WBC Neutrophils # (Manual) Lymphocytes # (Manual) Monocytes # (Manual) Eosinophils # (Manual) Basophils # (Manual) Differential Comment Platelet Estimate (NORMAL) RBC Morph Micro Appear (NORMAL) PT (9.9-12.6) secs INR (0.8-1.2) VBG pH 7.249 L (7.31-7.41) Ionized Calcium 1.03 L (1.15-1.33) mmol/L Sodium (135-145) mmol/L Potassium (3.5-5.0) mmol/L Chloride (101-111) mmol/L Carbon Dioxide (21-32) mmol/L Anion Gap (6-13) BUN (6-20) mg/dL Creatinine (0.4-1.0) mg/dL Estimated GFR (MDRD) (>89) Glucose (70-100) mg/dL Lactic Acid 0.9 (0.5-2.2) mmol/L Calcium (8.5-10.3) mg/dL Phosphorus (2.5-4.6) mg/dL Magnesium (1.7-2.8) mg/dL Total Bilirubin (0.2-1.0) mg/dL AST (10-42) IU/L ALT (10-60) IU/L Alkaline Phosphatase (42-121) IU/L Ammonia (7-35) umol/L Troponin I High Sens 386.0 H* (2.3-14.8) ng/L B-Natriuretic Peptide (5-100) pg/mL Total Protein (6.7-8.2) g/dL Albumin (3.2-5.5) g/dL Globulin (2.1-4.2) g/dL Albumin/Globulin Ratio (1.0-2.2) Lipase (22-51) U/L Urine Color Urine Clarity (CLEAR) Urine pH (5.0-7.5) PH Ur Specific [place] (1.002-1.030) Urine Protein (NEGATIVE) mg/dL Urine Glucose (UA) (NEGATIVE) mg/dL Urine Ketones (NEGATIVE) mg/dL Urine Occult Blood (NEGATIVE) Urine Nitrite (NEGATIVE) Urine Bilirubin (NEGATIVE) Urine Urobilinogen (NORMAL) E.U./dL Ur Leukocyte Esterase (NEGATIVE) Urine RBC (0-5) /HPF Urine WBC (0-5) /HPF Ur Squamous Epith Cells (<= Few) Amorphous Sediment /LPF Urine Bacteria (None Seen) /HPF Ur Microscopic Review Urine Culture Comments Nasal Adenovirus (PCR) Nasal B. parapertussis DNA (PCR) Nasal Coronavir 229E PCR Nasal Coronavir HKU1 PCR Nasal Coronavir NL63 PCR Nasal Coronavir OC43 PCR Nasal Enterovir/Rhinovir PCR Nasal Influenza B PCR Nasal Influenza A PCR Nasal Parainfluen 1 PCR Nasal Parainfluen 2 PCR Nasal Parainfluen 3 PCR Nasal Parainfluen 4 PCR Nasal RSV (PCR) Nasal Screen MRSA (PCR) (NEGATIVE) Nasal B.pertussis DNA PCR Nasal C.pneumoniae (PCR) [place] Human Metapneumo PCR Nasal M.pneumoniae (PCR) Nasal SARS-CoV-2 (PCR) Stl C. diff Tox B Gene (NEGATIVE) Urine Opiates Screen (NEGATIVE) Ur Oxycodone Screen (NEGATIVE) Urine Methadone Screen (NEGATIVE) Ur Propoxyphene Screen (NEGATIVE) Ur Barbiturates Screen (NEGATIVE) Ur Tricyclics Screen (NEGATIVE) Ur Phencyclidine Scrn (NEGATIVE) Ur Amphetamine Screen (NEGATIVE) U Methamphetamines Scrn (NEGATIVE) U Benzodiazepines Scrn (NEGATIVE) Urine Cocaine Screen (NEGATIVE) U Cannabinoids Screen (NEGATIVE) Ethyl Alcohol mg/dL Blood Type Blood Type Recheck Antibody Screen Crossmatch IS Only 09/25/20 09/25/20 09/25/20 Range/Units 04:20 04:20 04:20 WBC 11.2 H (4.8-10.8) x10^3/uL RBC 3.86 L (4.20-5.40) 10^6/uL Hgb 13.5 (12.0-16.0) g/dL Hct 39.3 (37.0-47.0) % MCV 101.8 H (81.0-99.0) fL MCH 35.0 H (27.0-31.0) pg MCHC 34.4 (32.0-36.0) g/dL RDW 15.6 H (12.0-15.0) % Plt Count 160 (130-450) 10^3/uL MPV 9.8 (7.9-10.8) fL Neut # (Auto) 9.4 H (1.5-6.6) 10^3/uL Lymph # (Auto) 1.1 L (1.5-3.5) 10^3/uL Grand # (Auto) 0.6 (0.0-1.0) 10^3/uL Eos # (Auto) 0.0 (0.0-0.7) 10^3/uL Baso # (Auto) 0.0 (0.0-0.1) 10^3/uL Absolute Nucleated RBC 0.00 x10^3/uL Band Neuts % (Manual) Not Reportable Abnorm Lymph % (Manual) Not Reportable Nucleated RBC % 0.0 /100WBC Neutrophils # (Manual) Not Reportable Lymphocytes # (Manual) Not Reportable Monocytes # (Manual) Not Reportable Eosinophils # (Manual) Not Reportable Basophils # (Manual) Not Reportable Differential Comment MANUAL=AUTO DIFF Platelet Estimate NORMAL (130-450,000) (NORMAL) RBC Morph Micro Appear NORMAL APPEARANCE (NORMAL) PT (9.9-12.6) secs INR (0.8-1.2) VBG pH (7.31-7.41) Ionized Calcium (1.15-1.33) mmol/L Sodium 132 L (135-145) mmol/L Potassium 3.9 (3.5-5.0) mmol/L Chloride 99 L (101-111) mmol/L Carbon Dioxide 13 L (21-32) mmol/L Anion Gap 20.0 H (6-13) BUN 18 (6-20) mg/dL Creatinine 1.6 H (0.4-1.0) mg/dL Estimated GFR (MDRD) 33 L (>89) Glucose 149 H (70-100) mg/dL Lactic Acid 1.1 (0.5-2.2) mmol/L Calcium 7.4 L (8.5-10.3) mg/dL Phosphorus 5.0 H (2.5-4.6) mg/dL Magnesium 2.1 (1.7-2.8) mg/dL Total Bilirubin 1.6 H (0.2-1.0) mg/dL AST 92 H (10-42) IU/L ALT 39 (10-60) IU/L Alkaline Phosphatase 43 (42-121) IU/L Ammonia (7-35) umol/L Troponin I High Sens (2.3-14.8) ng/L B-Natriuretic Peptide (5-100) pg/mL Total Protein 5.3 L (6.7-8.2) g/dL Albumin 3.2 (3.2-5.5) g/dL Globulin 2.1 (2.1-4.2) g/dL Albumin/Globulin Ratio 1.5 (1.0-2.2) Lipase (22-51) U/L Urine Color Urine Clarity (CLEAR) Urine pH (5.0-7.5) PH Ur Specific [place] (1.002-1.030) Urine Protein (NEGATIVE) mg/dL Urine Glucose (UA) (NEGATIVE) mg/dL Urine Ketones (NEGATIVE) mg/dL Urine Occult Blood (NEGATIVE) Urine Nitrite (NEGATIVE) Urine Bilirubin (NEGATIVE) Urine Urobilinogen (NORMAL) E.U./dL Ur Leukocyte Esterase (NEGATIVE) Urine RBC (0-5) /HPF Urine WBC (0-5) /HPF Ur Squamous Epith Cells (<= Few) Amorphous Sediment /LPF Urine Bacteria (None Seen) /HPF Ur Microscopic Review Urine Culture Comments Nasal Adenovirus (PCR) Nasal B. parapertussis DNA (PCR) Nasal Coronavir 229E PCR Nasal Coronavir HKU1 PCR Nasal Coronavir NL63 PCR Nasal Coronavir OC43 PCR Nasal Enterovir/Rhinovir PCR Nasal Influenza B PCR Nasal Influenza A PCR Nasal Parainfluen 1 PCR Nasal Parainfluen 2 PCR Nasal Parainfluen 3 PCR Nasal Parainfluen 4 PCR Nasal RSV (PCR) Nasal Screen MRSA (PCR) (NEGATIVE) Nasal B.pertussis DNA PCR Nasal C.pneumoniae (PCR) [place] Human Metapneumo PCR Nasal M.pneumoniae (PCR) Nasal SARS-CoV-2 (PCR) Stl C. diff Tox B Gene (NEGATIVE) Urine Opiates Screen (NEGATIVE) Ur Oxycodone Screen (NEGATIVE) Urine Methadone Screen (NEGATIVE) Ur Propoxyphene Screen (NEGATIVE) Ur Barbiturates Screen (NEGATIVE) Ur Tricyclics Screen (NEGATIVE) Ur Phencyclidine Scrn (NEGATIVE) Ur Amphetamine Screen (NEGATIVE) U Methamphetamines Scrn (NEGATIVE) U Benzodiazepines Scrn (NEGATIVE) Urine Cocaine Screen (NEGATIVE) U Cannabinoids Screen (NEGATIVE) Ethyl Alcohol mg/dL Blood Type Blood Type Recheck Antibody Screen Crossmatch IS Only 09/25/20 09/24/20 09/24/20 Range/Units 00:55 22:05 20:22 WBC (4.8-10.8) x10^3/uL RBC (4.20-5.40) 10^6/uL Hgb (12.0-16.0) g/dL Hct (37.0-47.0) % MCV (81.0-99.0) fL MCH (27.0-31.0) pg MCHC (32.0-36.0) g/dL RDW (12.0-15.0) % Plt Count (130-450) 10^3/uL MPV (7.9-10.8) fL Neut # (Auto) (1.5-6.6) 10^3/uL Lymph # (Auto) (1.5-3.5) 10^3/uL Grand # (Auto) (0.0-1.0) 10^3/uL Eos # (Auto) (0.0-0.7) 10^3/uL Baso # (Auto) (0.0-0.1) 10^3/uL Absolute Nucleated RBC x10^3/uL Band Neuts % (Manual) Abnorm Lymph % (Manual) Nucleated RBC % /100WBC Neutrophils # (Manual) Lymphocytes # (Manual) Monocytes # (Manual) Eosinophils # (Manual) Basophils # (Manual) Differential Comment Platelet Estimate (NORMAL) RBC Morph Micro Appear (NORMAL) PT (9.9-12.6) secs INR (0.8-1.2) VBG pH (7.31-7.41) Ionized Calcium (1.15-1.33) mmol/L Sodium (135-145) mmol/L Potassium (3.5-5.0) mmol/L Chloride (101-111) mmol/L Carbon Dioxide (21-32) mmol/L Anion Gap (6-13) BUN (6-20) mg/dL Creatinine (0.4-1.0) mg/dL Estimated GFR (MDRD) (>89) Glucose (70-100) mg/dL Lactic Acid 1.9 (0.5-2.2) mmol/L Calcium (8.5-10.3) mg/dL Phosphorus (2.5-4.6) mg/dL Magnesium (1.7-2.8) mg/dL Total Bilirubin (0.2-1.0) mg/dL AST (10-42) IU/L ALT (10-60) IU/L Alkaline Phosphatase (42-121) IU/L Ammonia (7-35) umol/L Troponin I High Sens 428.3 H* (2.3-14.8) ng/L B-Natriuretic Peptide (5-100) pg/mL Total Protein (6.7-8.2) g/dL Albumin (3.2-5.5) g/dL Globulin (2.1-4.2) g/dL Albumin/Globulin Ratio (1.0-2.2) Lipase (22-51) U/L Urine Color Urine Clarity (CLEAR) Urine pH (5.0-7.5) PH Ur Specific [place] (1.002-1.030) Urine Protein (NEGATIVE) mg/dL Urine Glucose (UA) (NEGATIVE) mg/dL Urine Ketones (NEGATIVE) mg/dL Urine Occult Blood (NEGATIVE) Urine Nitrite (NEGATIVE) Urine Bilirubin (NEGATIVE) Urine Urobilinogen (NORMAL) E.U./dL Ur Leukocyte Esterase (NEGATIVE) Urine RBC (0-5) /HPF Urine WBC (0-5) /HPF Ur Squamous Epith Cells (<= Few) Amorphous Sediment /LPF Urine Bacteria (None Seen) /HPF Ur Microscopic Review Urine Culture Comments Nasal Adenovirus (PCR) Nasal B. parapertussis DNA (PCR) Nasal Coronavir 229E PCR Nasal Coronavir HKU1 PCR Nasal Coronavir NL63 PCR Nasal Coronavir OC43 PCR Nasal Enterovir/Rhinovir PCR Nasal Influenza B PCR Nasal Influenza A PCR Nasal Parainfluen 1 PCR Nasal Parainfluen 2 PCR Nasal Parainfluen 3 PCR Nasal Parainfluen 4 PCR Nasal RSV (PCR) Nasal Screen MRSA (PCR) (NEGATIVE) Nasal B.pertussis DNA PCR Nasal C.pneumoniae (PCR) [place] Human Metapneumo PCR Nasal M.pneumoniae (PCR) Nasal SARS-CoV-2 (PCR) Stl C. diff Tox B Gene POSITIVE A* (NEGATIVE) Urine Opiates Screen (NEGATIVE) Ur Oxycodone Screen (NEGATIVE) Urine Methadone Screen (NEGATIVE) Ur Propoxyphene Screen (NEGATIVE) Ur Barbiturates Screen (NEGATIVE) Ur Tricyclics Screen (NEGATIVE) Ur Phencyclidine Scrn (NEGATIVE) Ur Amphetamine Screen (NEGATIVE) U Methamphetamines Scrn (NEGATIVE) U Benzodiazepines Scrn (NEGATIVE) Urine Cocaine Screen (NEGATIVE) U Cannabinoids Screen (NEGATIVE) Ethyl Alcohol mg/dL Blood Type Blood Type Recheck Antibody Screen Crossmatch IS Only 09/24/20 09/24/20 09/24/20 Range/Units 20:15 19:09 18:25 WBC (4.8-10.8) x10^3/uL RBC (4.20-5.40) 10^6/uL Hgb (12.0-16.0) g/dL Hct (37.0-47.0) % MCV (81.0-99.0) fL MCH (27.0-31.0) pg MCHC (32.0-36.0) g/dL RDW (12.0-15.0) % Plt Count (130-450) 10^3/uL MPV (7.9-10.8) fL Neut # (Auto) (1.5-6.6) 10^3/uL Lymph # (Auto) (1.5-3.5) 10^3/uL Grand # (Auto) (0.0-1.0) 10^3/uL Eos # (Auto) (0.0-0.7) 10^3/uL Baso # (Auto) (0.0-0.1) 10^3/uL Absolute Nucleated RBC x10^3/uL Band Neuts % (Manual) Abnorm Lymph % (Manual) Nucleated RBC % /100WBC Neutrophils # (Manual) Lymphocytes # (Manual) Monocytes # (Manual) Eosinophils # (Manual) Basophils # (Manual) Differential Comment Platelet Estimate (NORMAL) RBC Morph Micro Appear (NORMAL) PT (9.9-12.6) secs INR (0.8-1.2) VBG pH (7.31-7.41) Ionized Calcium (1.15-1.33) mmol/L Sodium (135-145) mmol/L Potassium (3.5-5.0) mmol/L Chloride (101-111) mmol/L Carbon Dioxide (21-32) mmol/L Anion Gap (6-13) BUN (6-20) mg/dL Creatinine (0.4-1.0) mg/dL Estimated GFR (MDRD) (>89) Glucose (70-100) mg/dL Lactic Acid 3.0 H* (0.5-2.2) mmol/L Calcium (8.5-10.3) mg/dL Phosphorus (2.5-4.6) mg/dL Magnesium (1.7-2.8) mg/dL Total Bilirubin (0.2-1.0) mg/dL AST (10-42) IU/L ALT (10-60) IU/L Alkaline Phosphatase (42-121) IU/L Ammonia (7-35) umol/L Troponin I High Sens (2.3-14.8) ng/L B-Natriuretic Peptide (5-100) pg/mL Total Protein (6.7-8.2) g/dL Albumin (3.2-5.5) g/dL Globulin (2.1-4.2) g/dL Albumin/Globulin Ratio (1.0-2.2) Lipase (22-51) U/L Urine Color Urine Clarity (CLEAR) Urine pH (5.0-7.5) PH Ur Specific [place] (1.002-1.030) Urine Protein (NEGATIVE) mg/dL Urine Glucose (UA) (NEGATIVE) mg/dL Urine Ketones (NEGATIVE) mg/dL Urine Occult Blood (NEGATIVE) Urine Nitrite (NEGATIVE) Urine Bilirubin (NEGATIVE) Urine Urobilinogen (NORMAL) E.U./dL Ur Leukocyte Esterase (NEGATIVE) Urine RBC (0-5) /HPF Urine WBC (0-5) /HPF Ur Squamous Epith Cells (<= Few) Amorphous Sediment /LPF Urine Bacteria (None Seen) /HPF Ur Microscopic Review Urine Culture Comments Nasal Adenovirus (PCR) Nasal B. parapertussis DNA (PCR) Nasal Coronavir 229E PCR Nasal Coronavir HKU1 PCR Nasal Coronavir NL63 PCR Nasal Coronavir OC43 PCR Nasal Enterovir/Rhinovir PCR Nasal Influenza B PCR Nasal Influenza A PCR Nasal Parainfluen 1 PCR Nasal Parainfluen 2 PCR Nasal Parainfluen 3 PCR Nasal Parainfluen 4 PCR Nasal RSV (PCR) Nasal Screen MRSA (PCR) NEGATIVE (NEGATIVE) Nasal B.pertussis DNA PCR Nasal C.pneumoniae (PCR) [place] Human Metapneumo PCR Nasal M.pneumoniae (PCR) Nasal SARS-CoV-2 (PCR) Stl C. diff Tox B Gene (NEGATIVE) Urine Opiates Screen NEGATIVE (NEGATIVE) Ur Oxycodone Screen NEGATIVE (NEGATIVE) Urine Methadone Screen NEGATIVE (NEGATIVE) Ur Propoxyphene Screen NEGATIVE (NEGATIVE) Ur Barbiturates Screen NEGATIVE (NEGATIVE) Ur Tricyclics Screen NEGATIVE (NEGATIVE) Ur Phencyclidine Scrn NEGATIVE (NEGATIVE) Ur Amphetamine Screen NEGATIVE (NEGATIVE) U Methamphetamines Scrn NEGATIVE (NEGATIVE) U Benzodiazepines Scrn NEGATIVE (NEGATIVE) Urine Cocaine Screen NEGATIVE (NEGATIVE) U Cannabinoids Screen NEGATIVE (NEGATIVE) Ethyl Alcohol mg/dL Blood Type Blood Type Recheck Antibody Screen Crossmatch IS Only 09/24/20 09/24/20 09/24/20 Range/Units 16:45 16:04 15:40 WBC (4.8-10.8) x10^3/uL RBC (4.20-5.40) 10^6/uL Hgb (12.0-16.0) g/dL Hct (37.0-47.0) % MCV (81.0-99.0) fL MCH (27.0-31.0) pg MCHC (32.0-36.0) g/dL RDW (12.0-15.0) % Plt Count (130-450) 10^3/uL MPV (7.9-10.8) fL Neut # (Auto) (1.5-6.6) 10^3/uL Lymph # (Auto) (1.5-3.5) 10^3/uL Grand # (Auto) (0.0-1.0) 10^3/uL Eos # (Auto) (0.0-0.7) 10^3/uL Baso # (Auto) (0.0-0.1) 10^3/uL Absolute Nucleated RBC x10^3/uL Band Neuts % (Manual) Abnorm Lymph % (Manual) Nucleated RBC % /100WBC Neutrophils # (Manual) Lymphocytes # (Manual) Monocytes # (Manual) Eosinophils # (Manual) Basophils # (Manual) Differential Comment Platelet Estimate (NORMAL) RBC Morph Micro Appear (NORMAL) PT (9.9-12.6) secs INR (0.8-1.2) VBG pH (7.31-7.41) Ionized Calcium (1.15-1.33) mmol/L Sodium (135-145) mmol/L Potassium (3.5-5.0) mmol/L Chloride (101-111) mmol/L Carbon Dioxide (21-32) mmol/L Anion Gap (6-13) BUN (6-20) mg/dL Creatinine (0.4-1.0) mg/dL Estimated GFR (MDRD) (>89) Glucose (70-100) mg/dL Lactic Acid (0.5-2.2) mmol/L Calcium (8.5-10.3) mg/dL Phosphorus (2.5-4.6) mg/dL Magnesium (1.7-2.8) mg/dL Total Bilirubin (0.2-1.0) mg/dL AST (10-42) IU/L ALT (10-60) IU/L Alkaline Phosphatase (42-121) IU/L Ammonia (7-35) umol/L Troponin I High Sens (2.3-14.8) ng/L B-Natriuretic Peptide 45 (5-100) pg/mL Total Protein (6.7-8.2) g/dL Albumin (3.2-5.5) g/dL Globulin (2.1-4.2) g/dL Albumin/Globulin Ratio (1.0-2.2) Lipase (22-51) U/L Urine Color YELLOW Urine Clarity CLOUDY (CLEAR) Urine pH 5.5 (5.0-7.5) PH Ur Specific [place] 1.025 (1.002-1.030) Urine Protein 100 H (NEGATIVE) mg/dL Urine Glucose (UA) NEGATIVE (NEGATIVE) mg/dL Urine Ketones TRACE (NEGATIVE) mg/dL Urine Occult Blood SMALL H (NEGATIVE) Urine Nitrite NEGATIVE (NEGATIVE) Urine Bilirubin NEGATIVE (NEGATIVE) Urine Urobilinogen 0.2 (NORMAL) (NORMAL) E.U./dL Ur Leukocyte Esterase MODERATE H (NEGATIVE) Urine RBC 6-10 H (0-5) /HPF Urine WBC >25 H (0-5) /HPF Ur Squamous Epith Cells FEW Squamous (<= Few) Amorphous Sediment Few /LPF Urine Bacteria Many H (None Seen) /HPF Ur Microscopic Review INDICATED Urine Culture Comments INDICATED Nasal Adenovirus (PCR) NOT DETECTED Nasal B. parapertussis DNA (PCR) NOT DETECTED Nasal Coronavir 229E PCR NOT DETECTED Nasal Coronavir HKU1 PCR NOT DETECTED Nasal Coronavir NL63 PCR NOT DETECTED Nasal Coronavir OC43 PCR NOT DETECTED Nasal Enterovir/Rhinovir PCR NOT DETECTED Nasal Influenza B PCR NOT DETECTED Nasal Influenza A PCR NOT DETECTED Nasal Parainfluen 1 PCR NOT DETECTED Nasal Parainfluen 2 PCR NOT DETECTED Nasal Parainfluen 3 PCR NOT DETECTED Nasal Parainfluen 4 PCR NOT DETECTED Nasal RSV (PCR) NOT DETECTED Nasal Screen MRSA (PCR) (NEGATIVE) Nasal B.pertussis DNA PCR NOT DETECTED Nasal C.pneumoniae (PCR) NOT DETECTED [place] Human Metapneumo PCR NOT DETECTED Nasal M.pneumoniae (PCR) NOT DETECTED Nasal SARS-CoV-2 (PCR) NOT DETECTED Stl C. diff Tox B Gene (NEGATIVE) Urine Opiates Screen (NEGATIVE) Ur Oxycodone Screen (NEGATIVE) Urine Methadone Screen (NEGATIVE) Ur Propoxyphene Screen (NEGATIVE) Ur Barbiturates Screen (NEGATIVE) Ur Tricyclics Screen (NEGATIVE) Ur Phencyclidine Scrn (NEGATIVE) Ur Amphetamine Screen (NEGATIVE) U Methamphetamines Scrn (NEGATIVE) U Benzodiazepines Scrn (NEGATIVE) Urine Cocaine Screen (NEGATIVE) U Cannabinoids Screen (NEGATIVE) Ethyl Alcohol mg/dL Blood Type Blood Type Recheck Antibody Screen Crossmatch IS Only 09/24/20 09/24/20 09/24/20 Range/Units 15:40 15:40 15:40 WBC 6.9 (4.8-10.8) x10^3/uL RBC 3.87 L (4.20-5.40) 10^6/uL Hgb 13.2 (12.0-16.0) g/dL Hct 40.2 (37.0-47.0) % MCV 103.9 H (81.0-99.0) fL MCH 34.1 H (27.0-31.0) pg MCHC 32.8 (32.0-36.0) g/dL RDW 13.9 (12.0-15.0) % Plt Count 205 (130-450) 10^3/uL MPV 8.9 (7.9-10.8) fL Neut # (Auto) 5.3 (1.5-6.6) 10^3/uL Lymph # (Auto) 1.1 L (1.5-3.5) 10^3/uL Grand # (Auto) 0.3 (0.0-1.0) 10^3/uL Eos # (Auto) 0.0 (0.0-0.7) 10^3/uL Baso # (Auto) 0.0 (0.0-0.1) 10^3/uL Absolute Nucleated RBC 0.00 x10^3/uL Band Neuts % (Manual) Abnorm Lymph % (Manual) Nucleated RBC % 0.0 /100WBC Neutrophils # (Manual) Lymphocytes # (Manual) Monocytes # (Manual) Eosinophils # (Manual) Basophils # (Manual) Differential Comment Platelet Estimate (NORMAL) RBC Morph Micro Appear (NORMAL) PT 11.9 (9.9-12.6) secs INR 1.1 (0.8-1.2) VBG pH (7.31-7.41) Ionized Calcium (1.15-1.33) mmol/L Sodium (135-145) mmol/L Potassium (3.5-5.0) mmol/L Chloride (101-111) mmol/L Carbon Dioxide (21-32) mmol/L Anion Gap (6-13) BUN (6-20) mg/dL Creatinine (0.4-1.0) mg/dL Estimated GFR (MDRD) (>89) Glucose (70-100) mg/dL Lactic Acid (0.5-2.2) mmol/L Calcium (8.5-10.3) mg/dL Phosphorus (2.5-4.6) mg/dL Magnesium (1.7-2.8) mg/dL Total Bilirubin (0.2-1.0) mg/dL AST (10-42) IU/L ALT (10-60) IU/L Alkaline Phosphatase (42-121) IU/L Ammonia (7-35) umol/L Troponin I High Sens 27.7 H* (2.3-14.8) ng/L B-Natriuretic Peptide (5-100) pg/mL Total Protein (6.7-8.2) g/dL Albumin (3.2-5.5) g/dL Globulin (2.1-4.2) g/dL Albumin/Globulin Ratio (1.0-2.2) Lipase (22-51) U/L Urine Color Urine Clarity (CLEAR) Urine pH (5.0-7.5) PH Ur Specific [place] (1.002-1.030) Urine Protein (NEGATIVE) mg/dL Urine Glucose (UA) (NEGATIVE) mg/dL Urine Ketones (NEGATIVE) mg/dL Urine Occult Blood (NEGATIVE) Urine Nitrite (NEGATIVE) Urine Bilirubin (NEGATIVE) Urine Urobilinogen (NORMAL) E.U./dL Ur Leukocyte Esterase (NEGATIVE) Urine RBC (0-5) /HPF Urine WBC (0-5) /HPF Ur Squamous Epith Cells (<= Few) Amorphous Sediment /LPF Urine Bacteria (None Seen) /HPF Ur Microscopic Review Urine Culture Comments Nasal Adenovirus (PCR) Nasal B. parapertussis DNA (PCR) Nasal Coronavir 229E PCR Nasal Coronavir HKU1 PCR Nasal Coronavir NL63 PCR Nasal Coronavir OC43 PCR Nasal Enterovir/Rhinovir PCR Nasal Influenza B PCR Nasal Influenza A PCR Nasal Parainfluen 1 PCR Nasal Parainfluen 2 PCR Nasal Parainfluen 3 PCR Nasal Parainfluen 4 PCR Nasal RSV (PCR) Nasal Screen MRSA (PCR) (NEGATIVE) Nasal B.pertussis DNA PCR Nasal C.pneumoniae (PCR) [place] Human Metapneumo PCR Nasal M.pneumoniae (PCR) Nasal SARS-CoV-2 (PCR) Stl C. diff Tox B Gene (NEGATIVE) Urine Opiates Screen (NEGATIVE) Ur Oxycodone Screen (NEGATIVE) Urine Methadone Screen (NEGATIVE) Ur Propoxyphene Screen (NEGATIVE) Ur Barbiturates Screen (NEGATIVE) Ur Tricyclics Screen (NEGATIVE) Ur Phencyclidine Scrn (NEGATIVE) Ur Amphetamine Screen (NEGATIVE) U Methamphetamines Scrn (NEGATIVE) U Benzodiazepines Scrn (NEGATIVE) Urine Cocaine Screen (NEGATIVE) U Cannabinoids Screen (NEGATIVE) Ethyl Alcohol mg/dL Blood Type Blood Type Recheck Antibody Screen Crossmatch IS Only 09/24/20 09/24/20 09/24/20 Range/Units 15:40 15:40 15:20 WBC (4.8-10.8) x10^3/uL RBC (4.20-5.40) 10^6/uL Hgb (12.0-16.0) g/dL Hct (37.0-47.0) % MCV (81.0-99.0) fL MCH (27.0-31.0) pg MCHC (32.0-36.0) g/dL RDW (12.0-15.0) % Plt Count (130-450) 10^3/uL MPV (7.9-10.8) fL Neut # (Auto) (1.5-6.6) 10^3/uL Lymph # (Auto) (1.5-3.5) 10^3/uL Grand # (Auto) (0.0-1.0) 10^3/uL Eos # (Auto) (0.0-0.7) 10^3/uL Baso # (Auto) (0.0-0.1) 10^3/uL Absolute Nucleated RBC x10^3/uL Band Neuts % (Manual) Abnorm Lymph % (Manual) Nucleated RBC % /100WBC Neutrophils # (Manual) Lymphocytes # (Manual) Monocytes # (Manual) Eosinophils # (Manual) Basophils # (Manual) Differential Comment Platelet Estimate (NORMAL) RBC Morph Micro Appear (NORMAL) PT (9.9-12.6) secs INR (0.8-1.2) VBG pH (7.31-7.41) Ionized Calcium (1.15-1.33) mmol/L Sodium (135-145) mmol/L Potassium (3.5-5.0) mmol/L Chloride (101-111) mmol/L Carbon Dioxide (21-32) mmol/L Anion Gap (6-13) BUN (6-20) mg/dL Creatinine (0.4-1.0) mg/dL Estimated GFR (MDRD) (>89) Glucose (70-100) mg/dL Lactic Acid 7.3 H* (0.5-2.2) mmol/L Calcium (8.5-10.3) mg/dL Phosphorus (2.5-4.6) mg/dL Magnesium (1.7-2.8) mg/dL Total Bilirubin (0.2-1.0) mg/dL AST (10-42) IU/L ALT (10-60) IU/L Alkaline Phosphatase (42-121) IU/L Ammonia 20.5 (7-35) umol/L Troponin I High Sens (2.3-14.8) ng/L B-Natriuretic Peptide (5-100) pg/mL Total Protein (6.7-8.2) g/dL Albumin (3.2-5.5) g/dL Globulin (2.1-4.2) g/dL Albumin/Globulin Ratio (1.0-2.2) Lipase (22-51) U/L Urine Color Urine Clarity (CLEAR) Urine pH (5.0-7.5) PH Ur Specific [place] (1.002-1.030) Urine Protein (NEGATIVE) mg/dL Urine Glucose (UA) (NEGATIVE) mg/dL Urine Ketones (NEGATIVE) mg/dL Urine Occult Blood (NEGATIVE) Urine Nitrite (NEGATIVE) Urine Bilirubin (NEGATIVE) Urine Urobilinogen (NORMAL) E.U./dL Ur Leukocyte Esterase (NEGATIVE) Urine RBC (0-5) /HPF Urine WBC (0-5) /HPF Ur Squamous Epith Cells (<= Few) Amorphous Sediment /LPF Urine Bacteria (None Seen) /HPF Ur Microscopic Review Urine Culture Comments Nasal Adenovirus (PCR) Nasal B. parapertussis DNA (PCR) Nasal Coronavir 229E PCR Nasal Coronavir HKU1 PCR Nasal Coronavir NL63 PCR Nasal Coronavir OC43 PCR Nasal Enterovir/Rhinovir PCR Nasal Influenza B PCR Nasal Influenza A PCR Nasal Parainfluen 1 PCR Nasal Parainfluen 2 PCR Nasal Parainfluen 3 PCR Nasal Parainfluen 4 PCR Nasal RSV (PCR) Nasal Screen MRSA (PCR) (NEGATIVE) Nasal B.pertussis DNA PCR Nasal C.pneumoniae (PCR) [place] Human Metapneumo PCR Nasal M.pneumoniae (PCR) Nasal SARS-CoV-2 (PCR) Stl C. diff Tox B Gene (NEGATIVE) Urine Opiates Screen (NEGATIVE) Ur Oxycodone Screen (NEGATIVE) Urine Methadone Screen (NEGATIVE) Ur Propoxyphene Screen (NEGATIVE) Ur Barbiturates Screen (NEGATIVE) Ur Tricyclics Screen (NEGATIVE) Ur Phencyclidine Scrn (NEGATIVE) Ur Amphetamine Screen (NEGATIVE) U Methamphetamines Scrn (NEGATIVE) U Benzodiazepines Scrn (NEGATIVE) Urine Cocaine Screen (NEGATIVE) U Cannabinoids Screen (NEGATIVE) Ethyl Alcohol mg/dL Blood Type Blood Type Recheck O NEGATIVE Antibody Screen Crossmatch IS Only 09/24/20 09/24/20 09/24/20 Range/Units 15:20 15:20 15:20 WBC (4.8-10.8) x10^3/uL RBC (4.20-5.40) 10^6/uL Hgb (12.0-16.0) g/dL Hct (37.0-47.0) % MCV (81.0-99.0) fL MCH (27.0-31.0) pg MCHC (32.0-36.0) g/dL RDW (12.0-15.0) % Plt Count (130-450) 10^3/uL MPV (7.9-10.8) fL Neut # (Auto) (1.5-6.6) 10^3/uL Lymph # (Auto) (1.5-3.5) 10^3/uL Grand # (Auto) (0.0-1.0) 10^3/uL Eos # (Auto) (0.0-0.7) 10^3/uL Baso # (Auto) (0.0-0.1) 10^3/uL Absolute Nucleated RBC x10^3/uL Band Neuts % (Manual) Abnorm Lymph % (Manual) Nucleated RBC % /100WBC Neutrophils # (Manual) Lymphocytes # (Manual) Monocytes # (Manual) Eosinophils # (Manual) Basophils # (Manual) Differential Comment Platelet Estimate (NORMAL) RBC Morph Micro Appear (NORMAL) PT (9.9-12.6) secs INR (0.8-1.2) VBG pH (7.31-7.41) Ionized Calcium (1.15-1.33) mmol/L Sodium 136 (135-145) mmol/L Potassium 3.2 L (3.5-5.0) mmol/L Chloride 94 L (101-111) mmol/L Carbon Dioxide 16 L (21-32) mmol/L Anion Gap 26.0 H (6-13) BUN 19 (6-20) mg/dL Creatinine 3.1 H (0.4-1.0) mg/dL Estimated GFR (MDRD) 15 L (>89) Glucose 92 (70-100) mg/dL Lactic Acid (0.5-2.2) mmol/L Calcium 8.4 L (8.5-10.3) mg/dL Phosphorus 7.0 H (2.5-4.6) mg/dL Magnesium 2.1 (1.7-2.8) mg/dL Total Bilirubin 1.1 H (0.2-1.0) mg/dL AST 160 H (10-42) IU/L ALT 55 (10-60) IU/L Alkaline Phosphatase 53 (42-121) IU/L Ammonia (7-35) umol/L Troponin I High Sens 23.1 H* (2.3-14.8) ng/L B-Natriuretic Peptide (5-100) pg/mL Total Protein 6.6 L (6.7-8.2) g/dL Albumin 3.9 (3.2-5.5) g/dL Globulin 2.7 (2.1-4.2) g/dL Albumin/Globulin Ratio 1.4 (1.0-2.2) Lipase 51 (22-51) U/L Urine Color Urine Clarity (CLEAR) Urine pH (5.0-7.5) PH Ur Specific [place] (1.002-1.030) Urine Protein (NEGATIVE) mg/dL Urine Glucose (UA) (NEGATIVE) mg/dL Urine Ketones (NEGATIVE) mg/dL Urine Occult Blood (NEGATIVE) Urine Nitrite (NEGATIVE) Urine Bilirubin (NEGATIVE) Urine Urobilinogen (NORMAL) E.U./dL Ur Leukocyte Esterase (NEGATIVE) Urine RBC (0-5) /HPF Urine WBC (0-5) /HPF Ur Squamous Epith Cells (<= Few) Amorphous Sediment /LPF Urine Bacteria (None Seen) /HPF Ur Microscopic Review Urine Culture Comments Nasal Adenovirus (PCR) Nasal B. parapertussis DNA (PCR) Nasal Coronavir 229E PCR Nasal Coronavir HKU1 PCR Nasal Coronavir NL63 PCR Nasal Coronavir OC43 PCR Nasal Enterovir/Rhinovir PCR Nasal Influenza B PCR Nasal Influenza A PCR Nasal Parainfluen 1 PCR Nasal Parainfluen 2 PCR Nasal Parainfluen 3 PCR Nasal Parainfluen 4 PCR Nasal RSV (PCR) Nasal Screen MRSA (PCR) (NEGATIVE) Nasal B.pertussis DNA PCR Nasal C.pneumoniae (PCR) [place] Human Metapneumo PCR Nasal M.pneumoniae (PCR) Nasal SARS-CoV-2 (PCR) Stl C. diff Tox B Gene (NEGATIVE) Urine Opiates Screen (NEGATIVE) Ur Oxycodone Screen (NEGATIVE) Urine Methadone Screen (NEGATIVE) Ur Propoxyphene Screen (NEGATIVE) Ur Barbiturates Screen (NEGATIVE) Ur Tricyclics Screen (NEGATIVE) Ur Phencyclidine Scrn (NEGATIVE) Ur Amphetamine Screen (NEGATIVE) U Methamphetamines Scrn (NEGATIVE) U Benzodiazepines Scrn (NEGATIVE) Urine Cocaine Screen (NEGATIVE) U Cannabinoids Screen (NEGATIVE) Ethyl Alcohol 199.4 mg/dL Blood Type O NEGATIVE Blood Type Recheck Antibody Screen NEGATIVE Crossmatch IS Only See Detail Assessment/Plan - Problem List (1) Lower GI bleed Impression: History diarrhea and bloody stool. No bm since admission and hct stable. Recommend follow up with surgery after current hospitalization
[2020-09-25] MEDS: cefTRIAXone 1 GM in SODIUM CHLORIDE 0.9% MINIBAG 100 ML IV SCH (11:35)
[2020-09-25] MEDS: SACCHAROMYCES BOULARDII 250 MG CAPSULE PO SCH ×2 (11:42→17:03)
[2020-09-25 11:57] LABS: ESTIMATED AVERAGE GLUCOSE 120 mg/dL (70-100); HEMOGLOBIN A1c% 5.8 % (4.27-6.07)
[2020-09-25] MEDS: CALCIUM CITRATE 250 MG TABLET PO SCH ×3 (12:57→20:20)
[2020-09-25] MEDS: NICOTINE 14 MG PATCH TOP SCH (15:07)
[2020-09-25] MEDS: PANTOPRAZOLE 40 MG TABLET PO SCH (15:45)
[2020-09-25] MEDS ORDERED: SACCHAROMYCES BOULARDII 250 MG CAPSULE PO SCH (17:00)
[2020-09-25] MEDS: CARBOXYMETHYLCELLULOSE OPHTH DROPS EACHEYE PRN (18:03)
[2020-09-26] MEDS: LORazepam 2 MG/ML VIAL IVP PRN ×3 (03:57→20:16)
[2020-09-26] MEDS: MORPHINE 2 MG/ML CARPUJECT IVP PRN ×3 (03:57→20:16)
[2020-09-26] MEDS: SODIUM CHLORIDE FLUSH 0.9% 10 ML SYRINGE IVP PRN ×2 (04:04→20:21)
[2020-09-26] MEDS: CARBOXYMETHYLCELLULOSE OPHTH DROPS EACHEYE PRN ×2 (04:05→20:22)
[2020-09-26] MEDS ORDERED: hydrALAZINE INJ 20 MG/ML VIAL IVP ONE (04:43)
[2020-09-26 04:57] LABS: BASOPHILS % (AUTO) 0.5 %; CALCIUM, IONIZED 1.1 mmol/L (1.15-1.33); EOSINOPHILS # (AUTO) 0.3 10^3/uL (0.0-0.7); EOSINOPHILS % (AUTO) 4.5 %; HCT - HEMATOCRIT 39.3 % (37.0-47.0); HGB - HEMOGLOBIN 13.3 g/dL (12.0-16.0); LYMPHOCYTES # (AUTO) 1.7 10^3/uL (1.5-3.5); LYMPHOCYTES % (AUTO) 29.8 %; MEAN CORPUSCULAR HEMOGLOBIN 33.9 pg (27.0-31.0); MEAN CORPUSCULAR HGB CONC 33.8 g/dL (32.0-36.0); MEAN CORPUSCULAR VOLUME 100.3 fL (81.0-99.0); MEAN PLATELET VOLUME 9.8 fL (7.9-10.8); MONOCYTES # (AUTO) 0.4 10^3/uL (0.0-1.0); MONOCYTES % (AUTO) 6.2 %; NEUTROPHILS # (AUTO) 3.3 10^3/uL (1.5-6.6); NEUTROPHILS % (AUTO) 58.8 %; PLT - PLATELET COUNT 144 10^3/uL (130-450); RED BLOOD COUNT 3.92 10^6/uL (4.20-5.40); RED CELL DISTRIBUTION WIDTH 14.5 % (12.0-15.0); VBG PH 7.359 (7.31-7.41); WHITE BLOOD COUNT 5.6 x10^3/uL (4.8-10.8)
[2020-09-26 05:07] LABS: CALCIUM 8.1 mg/dL (8.5-10.3); CREATININE 0.6 mg/dL (0.4-1.0); MAGNESIUM 1.8 mg/dL (1.7-2.8); PHOSPHORUS 1.9 mg/dL (2.5-4.6); POTASSIUM 3.4 mmol/L (3.5-5.0)
[2020-09-26] MEDS ORDERED: POTASSIUM CHLORIDE 20 MEQ TABLET PO ONE (05:29)
[2020-09-26] MEDS ORDERED: POTASSIUM PHOSPHATE 15 MMOL in SODIUM CHLORIDE 0.9% 250 ML IV ONE (06:00)
[2020-09-26] MEDS: PANTOPRAZOLE 40 MG TABLET PO SCH ×2 (06:19→15:36)
[2020-09-26] MEDS: chlordiazePOXIDE 25 MG CAPSULE PO SCH ×2 (06:20→18:59)
[2020-09-26] MEDS ORDERED: hydrALAZINE INJ 20 MG/ML VIAL IVP PRN (07:08)
--- NOTE | 2020-09-26 07:09 | PROVIDER PROGRESS NOTE ---
Assessment/Plan - Problem List (1) Shock Assessment/Plan: Improved. WBC is 5.6, lactic acid normal. Patient afebrile and vital stable Septic shock. Secondary to C. difficile colitis and UTI. E. coli grew on urine cultures. Patient was started on vancomycin 125 mg p.o. 4 times daily. Zosyn was switched to Rocephin 1 g IV daily. Blood cultures are pending. Continue IV hydration with normal saline at 100ml/H Anticipated discharge in 1 to 2 days. (2) C. difficile colitis Assessment/Plan: On vancomycin 125mg po qid (3) UTI (urinary tract infection) Assessment/Plan: 2/2 E. coli On Rocephin 1g IV daily (4) OBDULIA (acute kidney injury) Assessment/Plan: Resolved. (5) Alcoholism Assessment/Plan: Patient drinks 1/5 of vodka daily. CIWA protocol initiated. On Librium 25 mg p.o. twice daily. (6) Diarrhea Assessment/Plan: Patient was positive for C. difficile (7) Lactic acidosis Assessment/Plan: Resolved. Lactic acid improved from 7.3 to 1.1 This was secondary to hypoperfusion. from dehydration and sepsis. (8) Diabetes Qualifiers: Diabetes mellitus type: type 2 Assessment/Plan: Will hold metformin, glipizide and Jardiance Will order SSI and Accu check qac and hs HgA1C is 5.8. On a full liquid diet. (9) Elevated troponin Assessment/Plan: Likely Demand ischemia, 2/2 hypoperfusion Troponin trend was 23.1 > 27.7 > 428.3 > 386.0. 2D echocardiogram done on 09/15 0/2 1 showed left ventricular size normal. Left ventricular wall thickness was normal. Overall left ventricular systolic function is normal with an ejection fraction of 60 to 65%. No regional wall motion abnormality. The right ventricle was normal in size and function. The l eft atrium had mildly increase volume index. Aortic valve was trileaflet. There is no evidence of aortic stenosis or aortic regurgitation. There was no pericardial effusion or pleural effusion. There was no mass or thrombus. - Current Meds Current Meds: Current Medications Generic Name Dose Route Start Last Admin Trade Name Freq PRN Reason Stop Dose Admin Calcium Citrate 500 mg 09/25/20 13:00 09/25/20 20:20 Calcium Citrate 250 Mg Tablet PO 09/26/20 09:01 500 mg QID THERESE Administration Protocol Carboxymethylcellulose 1 drops 09/25/20 15:50 09/26/20 04:05 Carboxymethylcellulose Ophth Drops EACHEYE 1 drops PRN PRN Administration Dry Eye Chlordiazepoxide HCl 25 mg 09/24/20 19:00 09/26/20 06:20 Chlordiazepoxide 25 Mg Capsule PO 25 mg Q12H THERESE Administration Ceftriaxone Sodium 1 gm/ 100 mls @ 200 mls/hr 09/25/20 11:00 09/25/20 12:12 Sodium Chloride IV Infused DAILY THERESE Infusion Sodium Chloride 1,000 mls @ 100 mls/hr 09/25/20 12:40 09/26/20 06:00 Normal Saline 0.9% IV 100 mls/hr .Q10H THERESE Infusion Insulin Aspart 1 - 9 unit 09/25/20 17:00 09/25/20 20:35 Insulin Aspart 300 Unit/3 Ml Pen SUBQ 3 unit 0800,1200,1700,2100 THERESE Administration Protocol Lorazepam 1 mg 09/24/20 17:57 09/26/20 03:57 Lorazepam 2 Mg/Ml Vial IVP 1 mg Q30M PRN Administration CIWA >8 Protocol Morphine Sulfate 2 mg 09/24/20 17:49 09/26/20 03:57 Morphine 2 Mg/Ml Carpuject IVP 2 mg Q2HR PRN Administration Pain 8 to 10 Nicotine 1 patch 09/25/20 13:30 09/25/20 15:07 Nicotine 14 Mg Patch TOP 1 patch DAILY THERESE Administration Ondansetron HCl 4 mg 09/24/20 17:49 09/25/20 09:12 Ondansetron 4 Mg/2 Ml Vial IVP 4 mg Q6HR PRN Administration Nausea / Vomiting Oxycodone HCl 5 mg 09/24/20 17:49 09/25/20 23:15 Oxycodone 5 Mg Tablet PO 5 mg Q4HR PRN Administration Pain 5 to 7 Pantoprazole Sodium 40 mg 09/25/20 16:00 09/26/20 06:19 Pantoprazole 40 Mg Tablet PO 40 mg BIDAC THERESE Administration Multivit/Folic Acid/Iron 1 tab 09/25/20 09:00 09/25/20 09:09 Vitamin Tablet PO 1 tab DAILY THERESE Administration Saccharomyces Boulardii 500 mg 09/25/20 11:00 09/25/20 17:03 Saccharomyces Boulardii 250 Mg Capsule PO 500 mg BIDWM THERESE Administration Sodium Chloride 10 ml 09/25/20 01:00 09/25/20 19:31 Sodium Chloride Flush 0.9% 10 Ml Syringe IVP 10 ml 0100,0900,1700 THERESE Administration Sodium Chloride 10 ml 09/24/20 17:49 09/25/20 20:17 Sodium Chloride Flush 0.9% 10 Ml Syringe IVP 30 ml PRN PRN Administration NEEDED PER PROVIDER ORDERS Sodium Chloride 20 ml 09/24/20 20:10 09/26/20 04:04 Sodium Chloride Flush 0.9% 10 Ml Syringe IVP 20 ml PRN PRN Administration After Blood Draw Thiamine HCl 100 mg 09/25/20 09:00 09/25/20 09:10 Thiamine 100 Mg Tablet PO 100 mg DAILY THERESE Administration Vancomycin HCl 125 mg 09/25/20 09:00 09/25/20 20:20 Vancomycin 125 Mg Capsule PO 125 mg QID THERESE Administration - Lab Result Fish Bone Diagrams: 09/26/20 04:00 09/26/20 04:00 - Additional Planning My Orders: My Active Orders 09/25/20 08:45 Echo Transthoracic Complete [ECHO] Routine 09/25/20 09:00 Vitamin [Trinatal Rx 1] 1 tab PO DAILY Thiamine [Vitamin B-1] 100 mg PO DAILY Vancomycin [Vancocin] 125 mg PO QID 09/25/20 11:00 Saccharomyces Boulardii [Florastor] 500 mg PO BIDWM cefTRIAXone [Rocephin] 1 gm Sodium Chloride 0.9% Minibag [Normal Saline 0.9% Minibag] 100 ml IV DAILY 09/25/20 12:40 Sodium Chloride 0.9% [Normal Saline 0.9%] 1,000 ml IV 100 mls/hr 09/25/20 13:00 Calcium Citrate 500 mg PO QID 09/25/20 13:30 Nicotine 14 mg Patch [Nicoderm] 1 patch TOP DAILY 09/25/20 15:50 Carboxymethylcellulose 1% Opht [Refresh 1% Ophth Drops] 1 drops EACHEYE PRN PRN 09/25/20 16:00 Pantoprazole [Protonix] 40 mg PO BIDAC 09/25/20 17:00 Insulin Aspart [NovoLOG] 1 - 9 unit SUBQ 0800,1200,1700,2100 09/26/20 06:00 Potassium Phosphate 15 mmol Sodium Chloride 0.9% [Normal Saline 0.9%] 250 ml IV ONCE 09/26/20 07:08 hydrALAZINE INJ [Apresoline Inj] 10 mg IVP Q4H PRN 09/26/20 09:00 lisinopriL [Zestril] 20 mg PO DAILY 09/26/20 Lunch Full Liquid Diet [DIET] 09/27/20 05:00 BMP - BASIC METABOLIC PANEL [CHEM] DAILYLAB CBC - COMP BLD CT W/AUTO DIFF [HEME] DAILYLAB 09/28/20 05:00 BMP - BASIC METABOLIC PANEL [CHEM] DAILYLAB CBC - COMP BLD CT W/AUTO DIFF [HEME] DAILYLAB 09/29/20 05:00 BMP - BASIC METABOLIC PANEL [CHEM] DAILYLAB CBC - COMP BLD CT W/AUTO DIFF [HEME] DAILYLAB Subjective - Subjective Patient Reports: Other (She was resting comfortably in bed at time of exam. She denied any complaints however she has experienced 4 episodes of diarrhea this morning.) Objective Vital Signs: Vital Signs - 24 hr 09/25/20 09/25/20 09/25/20 08:00 09:00 10:00 Temperature 37.2 C Heart Rate [ 80 85 84 Monitoring electrodes] Respiratory 12 17 13 Rate Blood Pressure Blood Pressure 160/80 H 151/88 H 165/90 H [Left Brachial artery] Blood Pressure [Right Brachial artery] O2 Saturation 98 97 94 09/25/20 09/25/20 09/25/20 11:00 11:54 13:00 Temperature 37 C Heart Rate [ 78 82 76 Monitoring electrodes] Respiratory 12 18 12 Rate Blood Pressure Blood Pressure 144/86 H 165/102 H 157/98 H [Left Brachial artery] Blood Pressure [Right Brachial artery] O2 Saturation 96 98 98 09/25/20 09/25/20 09/25/20 14:00 15:00 16:00 Temperature Heart Rate [ 82 76 74 Monitoring electrodes] Respiratory 17 12 14 Rate Blood Pressure Blood Pressure 149/94 H 159/97 H 164/90 H [Left Brachial artery] Blood Pressure [Right Brachial artery] O2 Saturation 97 99 97 09/25/20 09/25/20 09/25/20 17:00 18:00 19:00 Temperature 36.7 C Heart Rate [ 76 75 77 Monitoring electrodes] Respiratory 14 15 16 Rate Blood Pressure Blood Pressure 171/106 H 136/87 H 164/98 H [Left Brachial artery] Blood Pressure [Right Brachial artery] O2 Saturation 97 99 94 09/25/20 09/25/20 09/25/20 19:34 20:00 21:00 Temperature 37.5 C Heart Rate [ 77 81 Monitoring electrodes] Respiratory 15 20 Rate Blood Pressure Blood Pressure 158/105 H 160/94 H [Left Brachial artery] Blood Pressure [Right Brachial artery] O2 Saturation 96 97 09/25/20 09/25/20 09/25/20 22:00 23:00 23:25 Temperature 36.6 C Heart Rate [ 70 73 Monitoring electrodes] Respiratory 15 14 Rate Blood Pressure Blood Pressure 139/79 H 146/90 H [Left Brachial artery] Blood Pressure [Right Brachial artery] O2 Saturation 94 92 09/26/20 09/26/20 09/26/20 00:00 01:00 02:00 Temperature Heart Rate [ 65 62 66 Monitoring electrodes] Respiratory 13 14 14 Rate Blood Pressure Blood Pressure 163/100 H 157/91 H 167/98 H [Left Brachial artery] Blood Pressure [Right Brachial artery] O2 Saturation 94 97 93 09/26/20 09/26/20 09/26/20 03:00 04:00 05:00 Temperature 36.7 C Heart Rate [ 66 72 65 Monitoring electrodes] Respiratory 16 13 14 Rate Blood Pressure Blood Pressure 167/109 H 187/122 H [Left Brachial artery] Blood Pressure 185/100 H [Right Brachial artery] O2 Saturation 94 97 95 09/26/20 09/26/20 09/26/20 05:09 05:15 05:20 Temperature Heart Rate [ 79 77 Monitoring electrodes] Respiratory Rate Blood Pressure 185/100 H Blood Pressure [Left Brachial artery] Blood Pressure 156/103 H 170/100 H [Right Brachial artery] O2 Saturation 09/26/20 09/26/20 09/26/20 05:25 05:30 05:45 Temperature Heart Rate [ 79 84 81 Monitoring electrodes] Respiratory Rate Blood Pressure Blood Pressure [Left Brachial artery] Blood Pressure 171/96 H 175/95 H 165/129 H [Right Brachial artery] O2 Saturation 09/26/20 09/26/20 06:00 07:00 Temperature Heart Rate [ 73 74 Monitoring electrodes] Respiratory 14 12 Rate Blood Pressure Blood Pressure [Left Brachial artery] Blood Pressure 144/70 H 164/93 H [Right Brachial artery] O2 Saturation 96 97 Oxygen O2 Source Room air I&O (Last 24 Hrs): Intake and Output Totals x24h 09/24/20 09/25/20 09/26/20 23:59 23:59 23:59 Intake Total 1854.275 8260.250 1450 Output Total 200 2510 1420 Balance 8514.449 8949.250 30 General: Alert, Oriented x3, No acute distress HEENT: PERRLA, EOMI Neck: Supple, No JVD Neuro: Alert, Non Focal, Oriented Times 3 Cardiovascular: Regular rate, Normal S1, Normal S2 Respiratory: Chest non-tender, No respiratory distress, Breath sounds nml Abdomen: Normal bowel sounds, Soft, No tenderness Extremities: No clubbing, No cyanosis, No edema Skin: No rashes, No breakdown - Results Results: Laboratory Results WBC 5.6 x10^3/uL (4.8-10.8) 09/26/20 04:00 RBC 3.92 10^6/uL (4.20-5.40) L 09/26/20 04:00 Hgb 13.3 g/dL (12.0-16.0) 09/26/20 04:00 Hct 39.3 % (37.0-47.0) 09/26/20 04:00 MCV 100.3 fL (81.0-99.0) H 09/26/20 04:00 MCH 33.9 pg (27.0-31.0) H 09/26/20 04:00 MCHC 33.8 g/dL (32.0-36.0) 09/26/20 04:00 RDW 14.5 % (12.0-15.0) 09/26/20 04:00 Plt Count 144 10^3/uL (130-450) 09/26/20 04:00 MPV 9.8 fL (7.9-10.8) 09/26/20 04:00 Neut # (Auto) 3.3 10^3/uL (1.5-6.6) 09/26/20 04:00 Lymph # (Auto) 1.7 10^3/uL (1.5-3.5) 09/26/20 04:00 [place] # (Auto) 0.4 10^3/uL (0.0-1.0) 09/26/20 04:00 Eos # (Auto) 0.3 10^3/uL (0.0-0.7) 09/26/20 04:00 Baso # (Auto) 0.0 10^3/uL (0.0-0.1) 09/26/20 04:00 Absolute Nucleated RBC 0.00 x10^3/uL 09/26/20 04:00 Band Neuts % (Manual) Not Reportable 09/25/20 04:20 Abnorm Lymph % (Manual) Not Reportable 09/25/20 04:20 Nucleated RBC % 0.0 /100WBC 09/26/20 04:00 Neutrophils # (Manual) Not Reportable 09/25/20 04:20 Lymphocytes # (Manual) Not Reportable 09/25/20 04:20 Monocytes # (Manual) Not Reportable 09/25/20 04:20 Eosinophils # (Manual) Not Reportable 09/25/20 04:20 Basophils # (Manual) Not Reportable 09/25/20 04:20 Differential Comment MANUAL=AUTO DIFF 09/25/20 04:20 Platelet Estimate NORMAL (130-450,000) (NORMAL) 09/25/20 04:20 RBC Morph Micro Appear NORMAL APPEARANCE (NORMAL) 09/25/20 04:20 PT 11.9 secs (9.9-12.6) 09/24/20 15:40 INR 1.1 (0.8-1.2) 09/24/20 15:40 VBG pH 7.359 (7.31-7.41) 09/26/20 04:00 Ionized Calcium 1.10 mmol/L (1.15-1.33) L 09/26/20 04:00 Sodium 135 mmol/L (135-145) 09/26/20 04:00 Potassium 3.4 mmol/L (3.5-5.0) L 09/26/20 04:00 Chloride 100 mmol/L (101-111) L 09/26/20 04:00 Carbon Dioxide 25 mmol/L (21-32) 09/26/20 04:00 Anion Gap 10.0 (6-13) 09/26/20 04:00 BUN 11 mg/dL (6-20) 09/26/20 04:00 Creatinine 0.6 mg/dL (0.4-1.0) 09/26/20 04:00 Estimated GFR (MDRD) 102 (>89) 09/26/20 04:00 Glucose 126 mg/dL (70-100) H 09/26/20 04:00 Estimat Average Glucose 120 mg/dL (70-100) H 09/25/20 04:20 Hemoglobin A1c % 5.8 % (4.27-6.07) 09/25/20 04:20 Lactic Acid 0.9 mmol/L (0.5-2.2) 09/25/20 08:06 Calcium 8.1 mg/dL (8.5-10.3) L 09/26/20 04:00 Phosphorus 1.9 mg/dL (2.5-4.6) L 09/26/20 04:00 Magnesium 1.8 mg/dL (1.7-2.8) 09/26/20 04:00 Total Bilirubin 1.6 mg/dL (0.2-1.0) H 09/25/20 04:20 AST 92 IU/L (10-42) H 09/25/20 04:20 ALT 39 IU/L (10-60) 09/25/20 04:20 Alkaline Phosphatase 43 IU/L (42-121) 09/25/20 04:20 Ammonia 20.5 umol/L (7-35) 09/24/20 15:40 Troponin I High Sens 386.0 ng/L (2.3-14.8) H* 09/25/20 04:20 B-Natriuretic Peptide 45 pg/mL (5-100) 09/24/20 15:40 Total Protein 5.3 g/dL (6.7-8.2) L 09/25/20 04:20 Albumin 3.2 g/dL (3.2-5.5) 09/25/20 04:20 Globulin 2.1 g/dL (2.1-4.2) 09/25/20 04:20 Albumin/Globulin Ratio 1.5 (1.0-2.2) 09/25/20 04:20 Lipase 51 U/L (22-51) 09/24/20 15:20 Urine Color YELLOW 09/24/20 16:45 Urine Clarity CLOUDY (CLEAR) 09/24/20 16:45 Urine pH 5.5 PH (5.0-7.5) 09/24/20 16:45 Ur Specific [place] 1.025 (1.002-1.030) 09/24/20 16:45 Urine Protein 100 mg/dL (NEGATIVE) H 09/24/20 16:45 Urine Glucose (UA) NEGATIVE mg/dL (NEGATIVE) 09/24/20 16:45 Urine Ketones TRACE mg/dL (NEGATIVE) 09/24/20 16:45 Urine Occult Blood SMALL (NEGATIVE) H 09/24/20 16:45 Urine Nitrite NEGATIVE (NEGATIVE) 09/24/20 16:45 Urine Bilirubin NEGATIVE (NEGATIVE) 09/24/20 16:45 Urine Urobilinogen 0.2 (NORMAL) E.U./dL (NORMAL) 09/24/20 16:45 Ur Leukocyte Esterase MODERATE (NEGATIVE) H 09/24/20 16:45 Urine RBC 6-10 /HPF (0-5) H 09/24/20 16:45 Urine WBC >25 /HPF (0-5) H 09/24/20 16:45 Ur Squamous Epith Cells FEW Squamous (<= Few) 09/24/20 16:45 Amorphous Sediment Few /LPF 09/24/20 16:45 Urine Bacteria Many /HPF (None Seen) H 09/24/20 16:45 Ur Microscopic Review INDICATED 09/24/20 16:45 Urine Culture Comments INDICATED 09/24/20 16:45 Nasal Adenovirus (PCR) NOT DETECTED 09/24/20 16:04 Nasal B. parapertussis DNA (PCR) NOT DETECTED 09/24/20 16:04 Nasal Coronavir 229E PCR NOT DETECTED 09/24/20 16:04 Nasal Coronavir HKU1 PCR NOT DETECTED 09/24/20 16:04 Nasal Coronavir NL63 PCR NOT DETECTED 09/24/20 16:04 Nasal Coronavir OC43 PCR NOT DETECTED 09/24/20 16:04 Nasal Enterovir/Rhinovir PCR NOT DETECTED 09/24/20 16:04 Nasal Influenza B PCR NOT DETECTED 09/24/20 16:04 Nasal Influenza A PCR NOT DETECTED 09/24/20 16:04 Nasal Parainfluen 1 PCR NOT DETECTED 09/24/20 16:04 Nasal Parainfluen 2 PCR NOT DETECTED 09/24/20 16:04 Nasal Parainfluen 3 PCR NOT DETECTED 09/24/20 16:04 Nasal Parainfluen 4 PCR NOT DETECTED 09/24/20 16:04 Nasal RSV (PCR) NOT DETECTED 09/24/20 16:04 Nasal Screen MRSA (PCR) NEGATIVE (NEGATIVE) 09/24/20 19:09 Nasal B.pertussis DNA PCR NOT DETECTED 09/24/20 16:04 Nasal C.pneumoniae (PCR) NOT DETECTED 09/24/20 16:04 [place] Human Metapneumo PCR NOT DETECTED 09/24/20 16:04 Nasal M.pneumoniae (PCR) NOT DETECTED 09/24/20 16:04 Nasal SARS-CoV-2 (PCR) NOT DETECTED 09/24/20 16:04 Stl C. diff Tox B Gene POSITIVE (NEGATIVE) A* 09/24/20 20:22 Urine Opiates Screen NEGATIVE (NEGATIVE) 09/24/20 18:25 Ur Oxycodone Screen NEGATIVE (NEGATIVE) 09/24/20 18:25 Urine Methadone Screen NEGATIVE (NEGATIVE) 09/24/20 18:25 Ur Propoxyphene Screen NEGATIVE (NEGATIVE) 09/24/20 18:25 Ur Barbiturates Screen NEGATIVE (NEGATIVE) 09/24/20 18:25 Ur Tricyclics Screen NEGATIVE (NEGATIVE) 09/24/20 18:25 Ur Phencyclidine Scrn NEGATIVE (NEGATIVE) 09/24/20 18:25 Ur Amphetamine Screen NEGATIVE (NEGATIVE) 09/24/20 18:25 U Methamphetamines Scrn NEGATIVE (NEGATIVE) 09/24/20 18:25 U Benzodiazepines Scrn NEGATIVE (NEGATIVE) 09/24/20 18:25 Urine Cocaine Screen NEGATIVE (NEGATIVE) 09/24/20 18:25 U Cannabinoids Screen NEGATIVE (NEGATIVE) 09/24/20 18:25 Ethyl Alcohol 199.4 mg/dL 09/24/20 15:20 Blood Type O NEGATIVE 09/24/20 15:20 Blood Type Recheck O NEGATIVE 09/24/20 15:20 Antibody Screen NEGATIVE 09/24/20 15:20 Crossmatch IS Only See Detail 09/24/20 15:20 - Procedures Procedures: Procedures ENDOSC POLYPECTOMY OF LG INTEST (08/07/14) Sepsis Event Note (H) - Evaluation Current Stage of Sepsis: Sepsis Possible source of Sepsis: positive: GI tract/intra-abdominal, Genitourinary - Sepsis Criteria Sepsis Criteria: SBP less than 90 mmHg, Metabolic: lactate > 2 mmol/L ABX Reporting Has patient been on IV antibiotics over the past 48 hours?: No
[2020-09-26] MEDS: INSULIN ASPART 300 UNIT/3 ML PEN SUBQ SCH ×4 (07:52→20:23)
[2020-09-26] MEDS: cefTRIAXone 1 GM in SODIUM CHLORIDE 0.9% MINIBAG 100 ML IV SCH (08:29)
[2020-09-26] MEDS: NICOTINE 14 MG PATCH TOP SCH (08:29)
[2020-09-26] MEDS: CALCIUM CITRATE 250 MG TABLET PO SCH (08:31)
[2020-09-26] MEDS: SACCHAROMYCES BOULARDII 250 MG CAPSULE PO SCH ×2 (08:31→17:16)
[2020-09-26] MEDS: lisinopriL 20 MG TABLET PO SCH (08:32)
[2020-09-26] MEDS: VANCOMYCIN 125 MG CAPSULE PO SCH ×4 (08:33→20:16)
[2020-09-26] MEDS: THIAMINE 100 MG TABLET PO SCH (08:33)
[2020-09-26] MEDS: PRENATAL VITAMIN TABLET PO SCH (08:34)
[2020-09-26] MEDS: SODIUM CHLORIDE FLUSH 0.9% 10 ML SYRINGE IVP SCH ×2 (08:45→17:16)
[2020-09-26] MEDS: oxyCODONE 5 MG TABLET PO PRN (12:05)
[2020-09-27] MEDS: SODIUM CHLORIDE FLUSH 0.9% 10 ML SYRINGE IVP SCH ×2 (00:13→08:35)
[2020-09-27] MEDS: oxyCODONE 5 MG TABLET PO PRN ×2 (00:13→04:41)
[2020-09-27] MEDS: LORazepam 2 MG/ML VIAL IVP PRN (00:13)
[2020-09-27 04:30] LABS: CALCIUM, IONIZED 1.09 mmol/L (1.15-1.33); VBG PH 7.436 (7.31-7.41)
[2020-09-27 04:31] LABS: BASOPHILS % (AUTO) 0.8 %; EOSINOPHILS # (AUTO) 0.2 10^3/uL (0.0-0.7); EOSINOPHILS % (AUTO) 4.6 %; HCT - HEMATOCRIT 35.9 % (37.0-47.0); HGB - HEMOGLOBIN 12.4 g/dL (12.0-16.0); LYMPHOCYTES # (AUTO) 1.6 10^3/uL (1.5-3.5); LYMPHOCYTES % (AUTO) 39.7 %; MEAN CORPUSCULAR HEMOGLOBIN 34.7 pg (27.0-31.0); MEAN CORPUSCULAR HGB CONC 34.5 g/dL (32.0-36.0); MEAN CORPUSCULAR VOLUME 100.6 fL (81.0-99.0); MONOCYTES # (AUTO) 0.3 10^3/uL (0.0-1.0); MONOCYTES % (AUTO) 8.4 %; NEUTROPHILS # (AUTO) 1.8 10^3/uL (1.5-6.6); NEUTROPHILS % (AUTO) 46.2 %; PLT - PLATELET COUNT 101 10^3/uL (130-450); RED BLOOD COUNT 3.57 10^6/uL (4.20-5.40); RED CELL DISTRIBUTION WIDTH 14.1 % (12.0-15.0)
[2020-09-27 04:37] LABS: CALCIUM 8.3 mg/dL (8.5-10.3); CREATININE 0.7 mg/dL (0.4-1.0); POTASSIUM 3.6 mmol/L (3.5-5.0)
[2020-09-27] MEDS: SODIUM CHLORIDE FLUSH 0.9% 10 ML SYRINGE IVP PRN ×2 (04:42→04:43)
[2020-09-27 05:13] LABS: MAGNESIUM 1.5 mg/dL (1.7-2.8); PHOSPHORUS 2.7 mg/dL (2.5-4.6)
[2020-09-27] MEDS: PANTOPRAZOLE 40 MG TABLET PO SCH (07:04)
[2020-09-27] MEDS: chlordiazePOXIDE 25 MG CAPSULE PO SCH (07:04)
[2020-09-27] MEDS: MAGNESIUM OXIDE 400 MG TABLET PO SCH ×2 (07:04→11:57)
[2020-09-27] MEDS: INSULIN ASPART 300 UNIT/3 ML PEN SUBQ SCH ×2 (07:46→11:56)
[2020-09-27] MEDS: SACCHAROMYCES BOULARDII 250 MG CAPSULE PO SCH (08:32)
[2020-09-27] MEDS: NICOTINE 14 MG PATCH TOP SCH (08:33)
[2020-09-27] MEDS: lisinopriL 20 MG TABLET PO SCH (08:33)
[2020-09-27] MEDS: PRENATAL VITAMIN TABLET PO SCH (08:34)
[2020-09-27] MEDS: THIAMINE 100 MG TABLET PO SCH (08:35)
[2020-09-27] MEDS: cefTRIAXone 1 GM in SODIUM CHLORIDE 0.9% MINIBAG 100 ML IV SCH (08:35)
[2020-09-27] MEDS: VANCOMYCIN 125 MG CAPSULE PO SCH ×2 (08:35→11:58)
[2020-09-27] MEDS ORDERED: LORazepam 0.5 MG TABLET PO PRN (08:48)
--- NOTE | 2020-09-27 12:58 | DISCHARGE SUMMARY ---
Discharge Summary Admit Date: 09/24/20 Discharge Date: 09/27/20 Discharging Provider: Maria Del Carmen Martinez Primary Care Provider: Katherine Sharp Code Status: Attempt Resuscitation Condition at Discharge: Critical Discharge Disposition: 01 Home, Self Care - DIAGNOSES Admission Diagnoses: Shock Acute kidney injury Alcoholism Diarrhea Lactic acidosis Diabetes mellitus Elevated troponin Discharge Diagnoses with Status of Each Condition: Shock: Acute. Resolved Acute kidney injury: Acute. Resolved Alcoholism. Chronic Diarrhea: Acute. Improving/Resolved Lactic acidosis: Acute. Resolved Diabetes mellitus: Chronic. Controlled Elevated troponin: Acute. Resolved - HPI History of Present Illness: Patient is 60-year-old female who was brought in by EMS with complaint of frequent diarrhea, blood in stool and frequent falls. She has a significant history of alcohol abuse and drinks about 1/5 of vodka daily. She reports last drank yesterday however her blood alcohol level was 199. She started experiencing diarrhea yesterday with increased frequency today. She reports about 5 episodes of diarrhea today and noticing blood in her stool. At some point in the day she was trying to stand up but kept falling because of weakness and dizziness. As a result she called EMS. Upon arrival it was reported that her blood pressure was 44/29. She was given about 850 mils of IV hydration in the field. Upon arrival to the ED her blood pressure was 65/40. Further work-up included a lactic acid which was 7.3. For concern about possible GI bleed she was immediately transfused 2 units of unmatched blood. Initial blood sample obtained was hemolyzed. The repeat blood sample was done after transfusion of the first unit of blood. Hemoglobin on this blood draw was 13.2. CT abdomen/pelvis showed severe diffuse hepatic steatosis with enlargement of the left lower lobe of the liver. It also showed moderate gastric distention. Probable prominent bilateral ovarian cysts. Less likely is bilateral hydr osalpinx. Findings showed scattered diverticuli. The patient denies hematemesis. At bedside she was drowsy but readily arousable to verbal stimuli and was able to give a history. She denied chest pain, dyspnea, fever or chills. She reports diffuse abdominal pain which is mild. She mainly complains of pain in the thoracic spine region. Her last colonoscopy was 5 to 6 years ago during which a couple of polyps were removed. Chest x-ray was unremarkable. - HOSPITAL COURSE Hospital Course: Patient was admitted to the ICU and administered aggressive IV hydration. Her vitals normalized with fluids. Within 24 hours her lactic acid had improved from 7.3 down to 0.8. C. difficile test came back positive so she was started on vancomycin 125 mg p.o. qid daily. Her urine culture also grew E. coli. She was treated with Zosyn for 1 day then Rocephin 1 g IV daily Until discharge. The frequency of her bowel movements steadily decreased. She required Ativan per [facility] protocol through the cause of her hospital stay. Her creatinine improved from 3.1 down to 0.7 by the time of discharge Troponin trend was 23.1 > 27.7 > 428.3 > 386.0. This was likely due to demand ischemia 2D echocardiogram done on 09/25/20 showed left ventricular size normal. Left ventricular wall thickness was normal. Overall left ventricular systolic function is normal with an ejection fraction of 60 to 65%. No regional wall motion abnormality. The right ventricle was normal in size and function. The left atrium had mildly increase volume index. Aortic valve was trileaflet. T here is no evidence of aortic stenosis or aortic regurgitation. There was no pericardial effusion or pleural effusion. There was no mass or thrombus. She was discharged with a prescription of vancomycin 125 mg p.o. 4 times daily to take for 7 days. She was also prescribed Librium 25 mg p.o. twice daily She may follow-up with her primary care physician as needed. - ALLERGIES Allergies/Adverse Reactions: Allergies Allergy/AdvReac Type Severity Reaction Status Date / Time No Known Drug Allergies Allergy Verified 09/24/20 15:16 - MEDICATIONS Home Medications: Ambulatory Orders Medication Instructions Recorded Confirmed Metformin HCl [Glucophage Xr] 1,000 mg PO BID 11/08/12 02/06/17 glipiZIDE [Glucotrol] 10 mg PO BID 11/08/12 02/06/17 Empagliflozin [Jardiance] 10 mg PO DAILY 03/23/16 02/06/17 Albuterol Sulfate [Proair Hfa 2 puffs INH Q4H PRN 12/27/19 09/25/20 Inhaler] Lisinopril [Zestril] 20 mg PO DAILY 12/27/19 09/25/20 tiZANidine [Zanaflex] 4 mg PO TID PRN 09/25/20 09/25/20 Vancomycin [Vancocin] 125 mg PO QID 7 Days #28 cap 09/27/20 chlordiazePOXIDE [Librium] 25 mg PO Q12H 5 Days #10 cap 09/27/20 - PHYSICAL EXAM AT DISCHARGE General Appearance: positive: No acute distress, Alert, Other (Mildly tremulous) Eyes Bilateral: positive: PERRL, EOMI ENT: positive: No signs of dehydration Neck: positive: No JVD, Trachea midline Respiratory: positive: Chest non-tender, No respiratory distress, Breath sounds nml. negative: Wheezes, Rales, Rhonchi Cardiovascular: positive: Regular rate & rhythm, No murmur Abdomen: positive: Non-tender, No organomegaly, Nml bowel sounds, No distention. negative: Guarding, Rebound Back: positive: Nml inspection Skin: positive: Color nml, No rash, Warm, Dry Extremities: positive: Non-tender, Full ROM, Nml appearance, No pedal edema Neurologic/Psychiatric: positive: Oriented x3, Mood/affect nml - LABS Result Diagrams: 09/27/20 04:11 09/27/20 04:11 - SEPSIS Current Stage of Sepsis: Sepsis Possible source of Sepsis: GI tract/intra-abdominal, Genitourinary Sepsis Criteria: SBP less than 90 mmHg, Metabolic: lactate > 2 mmol/L - TIME SPENT Time Spent in Discharge (Minutes): 25
--- NOTE | 2020-09-27 13:04 | Discharge Plan ---
Discharge Plan Problem Reviewed?: Yes Disposition: Home, Self Care Condition: Critical Prescriptions: chlordiazePOXIDE [Librium] 25 mg PO Q12H 5 Days #10 cap Vancomycin [Vancocin] 125 mg PO QID 7 Days #28 cap Diet: Regular Activity Restrictions: Activity as Tolerated Assistance Devices: Walker Instruction Topics: Ceftriaxone injection, Vancomycin capsules, Urinary Tract Infecs Women, Injury Acute Kidney Dc, Clostridium Difficile Infec Health Concerns: You were admitted on 1 week complaining of weakness, diarrhea and low blood pressure. Work-up in the ED showed that you were very dehydrated and subsequent tests showed that you had C. difficile diarrhea. You were admitted to the ICU and given IV hydration with normal saline after which she recovered steadily. He was also started on vancomycin 125 mg p.o. 4 times daily for your 3-day hospital stay. Upon discharge today 09/27/20 you have been prescribed vancomycin 125 mg p.o. 4 times daily for 7 more days. You have been advised to eat yogurt which contains probiotics in it. You were also treated for alcohol withdrawal during your hospital stay. Upon discharge you have been prescribed Librium 25 mg p.o. twice daily for 5 days as needed. You have also been advised to stop drinking alcohol You were seen by physical therapy who determined you are close to your baseline but would benefit from a walker. The contact to the [employer] has been provided so that you could contact them for a walker. You may follow-up with your primary care physician as needed. The above plan was explained to you you expressed understanding and are in agreement No Smoking: If you smoke, Please STOP! Call for help. Follow-up with: Theresa Sharp DO [Primary Care Provider] -
[2020-09-27 14:32] VITALS: BP 161/80
== END 2020-09-27 14:00 | disposition home or self-care (01) | DRG 871 ==
LOC: EDUNIT# → EDBD → ED 15:07 → ICU 17:49
PROVIDERS: ADMIT Internal Medicine; ATTEND Internal Medicine
DX: A41.9 Sepsis, unspecified organism (principal); R65.21 Severe sepsis with septic shock; N17.9 Acute kidney failure, unspecified; N39.0 Urinary tract infection, site not specified; E87.2 Acidosis; F10.239 Alcohol dependence with withdrawal, unspecified; I24.8 Other forms of acute ischemic heart disease; A04.72 Enterocolitis due to Clostridium difficile, not specified as recurrent; B96.20 Unspecified Escherichia coli [E. coli] as the cause of diseases classified elsewhere; E86.0 Dehydration; Y90.6 Blood alcohol level of 120-199 mg/100 ml; Z20.822 Contact with and (suspected) exposure to COVID-19; E11.9 Type 2 diabetes mellitus without complications; K76.0 Fatty (change of) liver, not elsewhere classified; I10 Essential (primary) hypertension; F17.210 Nicotine dependence, cigarettes, uncomplicated; Z91.81 History of falling
CPT/HCPCS: 0202U; 36415; 36556; 51702; 71045; 74176; 80048; 80053; 80306; 80320; 81001; 81599; 82140; 82330; 83036; 83605; 83690; 83735; 83880; 84100; 84484; 85025; 85610; 86850; 86900; 86901; 86920; 87040; 87086; 87150; 87181; 87493; 93005; 93306; 96365; 96366; 96368; 96375; 96376; 97116; 97162; 99285; 99291; A9270; J2060; J2354; J3370; J3411; J8499; P9016; 81003; 87045; 87046

== ENCOUNTER 2020-10-21 04:32 | Outpatient (CLI) | payer MEDICAID | END 2020-10-21 04:33 | disposition EMS.NT | LOC: EMS 04:32 | DX: R41.82 Altered mental status, unspecified (principal); R73.09 Other abnormal glucose ==

== ENCOUNTER 2020-10-26 08:00 | Outpatient (CLI) | payer MEDICAID ==
[2020-10-26 17:55] LABS: BASOPHILS # (AUTO) 0.1 10^3/uL (0.0-0.1); BASOPHILS % (AUTO) 1.3 %; EOSINOPHILS # (AUTO) 0.2 10^3/uL (0.0-0.7); EOSINOPHILS % (AUTO) 6.2 %; HCT - HEMATOCRIT 39.9 % (37.0-47.0); HGB - HEMOGLOBIN 12.8 g/dL (12.0-16.0); LYMPHOCYTES # (AUTO) 1.5 10^3/uL (1.5-3.5); LYMPHOCYTES % (AUTO) 38.8 %; MEAN CORPUSCULAR HEMOGLOBIN 33.7 pg (27.0-31.0); MEAN CORPUSCULAR HGB CONC 32.1 g/dL (32.0-36.0); MEAN PLATELET VOLUME 10.9 fL (7.9-10.8); MONOCYTES # (AUTO) 0.6 10^3/uL (0.0-1.0); MONOCYTES % (AUTO) 14.1 %; NEUTROPHILS # (AUTO) 1.5 10^3/uL (1.5-6.6); NEUTROPHILS % (AUTO) 39.3 %; PLT - PLATELET COUNT 159 10^3/uL (130-450); RED CELL DISTRIBUTION WIDTH 14.5 % (12.0-15.0); WHITE BLOOD COUNT 3.9 x10^3/uL (4.8-10.8)
[2020-10-26 18:23] LABS: CREATININE,URINE 73.5 mg/dL; MICROALBUMIN,URINE < 0.2 mg/dL (0-300.0)
[2020-10-26 18:34] LABS: ALBUMIN 4.2 g/dL (3.2-5.5); ALBUMIN/GLOBULIN RATIO 1.7 (1.0-2.2); ALKALINE PHOSPHATASE 65 IU/L (42-121); ALT ALANINE AMINOTRANSFERASE 58 IU/L (10-60); AST ASPARTATE AMINOTRANSFERASE 76 IU/L (10-42); BILIRUBIN,TOTAL 0.8 mg/dL (0.2-1.0); BUN - BLOOD UREA NITROGEN 11 mg/dL (6-20); CALCIUM 9.5 mg/dL (8.5-10.3); CARBON DIOXIDE - CO2 30 mmol/L (21-32); CHLORIDE 97 mmol/L (101-111); CHOLESTEROL 152 mg/dL; CREATININE 0.7 mg/dL (0.4-1.0); GFR - MDRD 85 (>89); GLUCOSE 232 mg/dL (70-100); HDL CHOLESTEROL 71 mg/dL; LDL CHOLESTEROL,CALCULATED 68 mg/dL; POTASSIUM 3.9 mmol/L (3.5-5.0); SODIUM 134 mmol/L (135-145); TOTAL PROTEIN 6.7 g/dL (6.7-8.2); TRIGLYCERIDES 63 mg/dL; VLDL CHOLESTEROL 13 mg/dL
[2020-10-26 18:35] LABS: CHOL/HDL RATIO 2.1 (<4.4)
[2020-10-26 20:14] LABS: ESTIMATED AVERAGE GLUCOSE 120 mg/dL (70-100); HEMOGLOBIN A1c% 5.8 % (4.27-6.07)
== END 2020-10-26 23:59 | disposition home or self-care (01) ==
LOC: LAB.WCP 08:00
PROVIDERS: ATTEND Family Medicine
DX: E11.9 Type 2 diabetes mellitus without complications (principal)
CPT/HCPCS: 36415; 80053; 80061; 82043; 82570; 82607; 83036; 83721; 85025

== ENCOUNTER 2021-01-02 10:30 | Outpatient (CLI) | payer MEDICAID | END 2021-01-02 23:59 | disposition EMS.NT | LOC: EMS 10:30 | DX: R40.4 Transient alteration of awareness (principal); E16.2 Hypoglycemia, unspecified ==

== ENCOUNTER 2021-02-03 03:48 | Outpatient (CLI) | payer MEDICAID | END 2021-02-03 03:49 | disposition critical access hospital (66) | LOC: EMS 03:48 | DX: M54.6 Pain in thoracic spine (principal); M25.552 Pain in left hip; M25.551 Pain in right hip; M54.2 Cervicalgia; W10.9XXA Fall (on) (from) unspecified stairs and steps, initial encounter; Y93.01 Activity, walking, marching and hiking; Y92.008 Other place in unspecified non-institutional (private) residence as the place of occurrence of the external cause | CPT/HCPCS: A0425; A0429; A0999 ==

== ENCOUNTER 2021-02-03 03:58 | Emergency (ER) | payer MEDICAID ==
--- NOTE | 2021-02-03 04:21 | ED Physician Documentation ---
History of Present Illness - Stated complaint Stated Complaint: GLF - Chief complaint Chief Complaint: Neuro - History obtained from History obtained from: Patient, EMS - Additonal information Additional information: Patient is brought to the emergency department by EMS for chief complaint of ground-level fall. The patient has a history of chronic alcoholism and has been drinking for several days. Her last drink was couple of hours ago. Patient states she was at her neighbor's house when she fell. Medics report that they were called to the scene where patient had had a ground-level fall while stepping off a single step. She landed on a pack to her surface. Patient states that both her hips hurt and that she has a sense of pain in her upper back and neck. No difficulty breathing. No chest pain. No abdominal pain. She is not sure if she hit her head but she does not recall doing so. No other complaints at this time. Review of Systems Ten Systems: 10 systems reviewed and negative Constitutional: reports: Reviewed and negative Eyes: reports: Reviewed and negative Ears: reports: Reviewed and negative Nose: reports: Reviewed and negative Throat: reports: Reviewed and negative Cardiac: reports: Reviewed and negative Respiratory: reports: Reviewed and negative GI: reports: Reviewed and negative : reports: Reviewed and negative Skin: reports: Reviewed and negative Musculoskeletal: reports: Extremity pain, Joint pain Neurologic: reports: Reviewed and negative Psychiatric: reports: Reviewed and negative Endocrine: reports: Reviewed and negative Immunocompromised: reports: Reviewed and negative PD PAST MEDICAL HISTORY - Past Medical History Past Medical History: Yes Cardiovascular: Hypertension Respiratory: None Neuro: None Endocrine/Autoimmune: Type 2 diabetes GI: None PUPPET DEVELOPER: 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 : None HEENT: None Psych: None Musculoskeletal: Osteoporosis, Scoliosis, Chronic back pain Derm: None - Past Surgical History Past Surgical History: Yes Ortho: Other /PUPPET DEVELOPER: Oophrectomy, Other - Present Medications Home Medications: Ambulatory Orders Medication Instructions Recorded Confirmed Metformin HCl [Glucophage Xr] 1,000 mg PO BID 11/08/12 02/06/17 glipiZIDE [Glucotrol] 10 mg PO BID 11/08/12 02/06/17 Empagliflozin [Jardiance] 10 mg PO DAILY 03/23/16 02/06/17 Albuterol Sulfate [Proair Hfa 2 puffs INH Q4H PRN 12/27/19 09/25/20 Inhaler] Lisinopril [Zestril] 20 mg PO DAILY 12/27/19 09/25/20 tiZANidine [Zanaflex] 4 mg PO TID PRN 09/25/20 09/25/20 Vancomycin [Vancocin] 125 mg PO QID 7 Days #28 cap 09/27/20 chlordiazePOXIDE [Librium] 25 mg PO Q12H 5 Days #10 cap 09/27/20 chlordiazePOXIDE [Librium] 25 mg PO BID 5 Days #10 cap 09/28/20 - Allergies Allergies/Adverse Reactions: Allergies Allergy/AdvReac Type Severity Reaction Status Date / Time No Known Drug Allergies Allergy Verified 09/24/20 15:16 - Social History Does the pt smoke?: Yes Smoking Status: Current every day smoker Does the pt drink ETOH?: Yes Does the pt have substance abuse?: No - Immunizations Immunizations are current?: No Immunizations: TDAP current <10years - POLST Patient has POLST: No POLST Status: Full Code PD ED PE NORMAL - Vitals Vital signs reviewed: Yes - General General: Alert and oriented X 3 (Mildly clinically intoxicated.), No acute distress, Well developed/nourished - HEENT HEENT: Atraumatic, PERRL, EOMI, Moist mucous membranes - Neck Neck: Supple, no meningeal sign, Other (Mild diffuse bony tenderness without step-off.) - Cardiac Cardiac: RRR, No murmur, Strong equal pulses - Respiratory Respiratory: No respiratory distress, Clear bilaterally - Abdomen Abdomen: Soft, Non tender, Non distended - Back Back: No spinal TTP - Derm Derm: Normal color, Warm and dry, No rash - Extremities Extremities: No deformity, No edema - Neuro Neuro: Alert and oriented X 3 - Psych Psych: Normal mood, Normal affect Results - Vitals Vitals: Vital Signs - 24 hr 02/03/21 02/03/21 02/03/21 04:04 05:07 05:38 Temperature 35.3 C L Heart Rate 82 56 L 53 L Respiratory 18 15 13 Rate Blood Pressure 101/63 107/58 L O2 Saturation 99 98 94 02/03/21 02/03/21 05:55 05:59 Temperature 36.2 C L Heart Rate 79 58 L Respiratory 13 13 Rate Blood Pressure O2 Saturation 98 95 Oxygen O2 Source Room air - Labs Labs: Laboratory Tests 02/03/21 04:35 Ethyl Alcohol 314.0 - Rads (name of study) CT head Radiology: Final report received, EMP read indepedently, See rad report (No acute disease) CT C-spine Radiology: Final report received, EMP read indepedently, See rad report (No acute disease) X-ray pelvis Radiology: Final report received, EMP read indepedently, See rad report (No acute disease) PD MEDICAL DECISION MAKING - ED course Complexity details: reviewed results, re-evaluated patient, considered differential, d/w patient ED course: The patient was worked up with CT scans of the head and neck and x-ray of the pelvis, all of which were unremarkable. Ethanol level was found to be 314. The patient was awake and wished to go home. Her daughter was willing to come and get her, and I felt that her intoxication was not worsening and she was stable for discharge with her sober daughter. We have discussed the usual indications for return and the need to consider getting help with her drinking. Departure - Departure Disposition: 01 Home, Self Care Clinical Impression: Alcohol intoxication Qualifiers: Complication of substance-induced condition: uncomplicated Qualified Code(s): F10.920 - Alcohol use, unspecified with intoxication, uncomplicated Fall Qualifiers: Encounter type: initial encounter Qualified Code(s): W19.XXXA - Unspecified fall, initial encounter Condition: Stable Instructions: ED Alcohol Intoxication Comments: We have obtained CT scans of your head and neck, and x-rays of your hips and pelvis. All of the above are unremarkable for any concerning findings. Please consider getting help with your alcohol abuse. You may be sore for the next couple of days from your falls, and you can take ibuprofen and/or Tylenol if needed for discomfort. Please see your primary doctor for further concerns.
[2021-02-03 05:39] VITALS: BP 107/58
--- NOTE | 2021-02-03 08:05 | CT Report ---
PROCEDURE: HEAD WO INDICATIONS: fall/etoh/?head injury TECHNIQUE: Noncontrast 4.5 mm thick angled axial sections acquired from the foramen magnum to the vertex. For r adiation dose reduction, the following was used: automated exposure control, adjustment of mA and/or kV according to patient size. COMPARISON: CT head without contrast, 07/31/2020. FINDINGS: Image quality: Excellent. CSF spaces: Basal cisterns are patent. No extra-axial fluid collections. Ventricles are normal in size and shape. Brain: No midline shift. No intracranial masses or hemorrhage. Starks-white matter interface is norm al. Skull and face: Calvarium and visualized facial bones are intact, without suspicious lesions. Sinuses: Visualized sinuses and mastoids are clear. IMPRESSION: No acute intracranial abnormality. No significant discrepancy with the preliminary interpretation. Reviewed by: Alan Liz MD on 02/03/2021 8:04 AM PST Approved by: Alan Liz MD on 02/03/2021 8:04 AM PST Station ID: [id number]
--- NOTE | 2021-02-03 08:06 | XRAY Report ---
PROCEDURE: Pelvis 1 View INDICATIONS: fall/pain TECHNIQUE: 1 view(s) of the pelvis acquired. COMPARISON: CT of abdomen and pelvis dated 09/24/2020. FINDINGS: Bones: No fractures or dislocations. Mild bilateral hip joint osteoarthritic changes are seen slight ly worse on the right side. Degenerative disc disease in visualized lower lumbar spine at L4-5 and L5 -S1 levels are also seen. No suspicious bony lesions. Soft tissues: Visualized bowel gas pattern is normal. No suspicious soft tissue calcifications. IMPRESSION: No acute pelvic fracture or dislocation. Mild right worse than left bilateral hip joint o steoarthritis. Degenerative disc disease in lower lumbar spine. No discrepancies complementary reading. Reviewed by: Doc Olvera MD on 02/03/2021 8:05 AM PST Approved by: Doc Olvera MD on 02/03/2021 8:05 AM PST Station ID: [id number]
--- NOTE | 2021-02-03 08:10 | CT Report ---
PROCEDURE: CERVICAL SPINE WO INDICATIONS: pain/fall/etoh TECHNIQUE: Noncontrast 3 mm thick sections acquired from the skull base to the T4 level. Sagittal and coronal r eformats were then constructed. For radiation dose reduction, the following was used: automated exp osure control, adjustment of mA and/or kV according to patient size. COMPARISON: 07/31/2020. FINDINGS: Image quality: Excellent. Bones: No fractures or dislocations. Straightening of normal cervical lordosis is again seen. Minim al anterolisthesis of C3 on C4 and C4 on C5 is again seen unchanged from prior study. Degenerative en dplate changes are noted throughout cervical spine with loss of disc height and prominent anterior an d dorsal disc osteophyte complex formation at C5-6 and C6-7 levels unchanged from prior study. Visual ized superior ribs are intact. Soft tissues: Prevertebral soft tissues are normal in thickness. No paravertebral hematomas. No ap ical pneumothoraces. IMPRESSION: No acute cervical spine fracture or dislocation. Mild degenerative disc disease throughout cervical s pine more prominent at C5-6 and C6-7 levels. No discrepancies from preliminary reading. Reviewed by: Doc Olvera MD on 02/03/2021 8:09 AM PST Approved by: Doc Olvera MD on 02/03/2021 8:09 AM PST Station ID: [id number]
== END 2021-02-03 07:02 | disposition home or self-care (01) ==
LOC: EDUNIT# → ED 03:58
DX: F10.920 Alcohol use, unspecified with intoxication, uncomplicated (principal); Y90.8 Blood alcohol level of 240 mg/100 ml or more; W10.8XXA Fall (on) (from) other stairs and steps, initial encounter; Y92.009 Unspecified place in unspecified non-institutional (private) residence as the place of occurrence of the external cause; I10 Essential (primary) hypertension; E11.9 Type 2 diabetes mellitus without complications; Z79.84 Long term (current) use of oral hypoglycemic drugs; F17.200 Nicotine dependence, unspecified, uncomplicated
CPT/HCPCS: 36415; 80320; 99283; 99284

== ENCOUNTER 2021-03-17 15:13 | Emergency (ER) | payer MEDICARE, MEDICAID ==
[2021-03-17 15:35] VITALS: BP 94/59
== END 2021-03-17 16:04 | disposition left against medical advice (07) ==
LOC: ED 15:13
DX: Z53.21 Procedure and treatment not carried out due to patient leaving prior to being seen by health care provider (principal)

== ENCOUNTER 2021-05-21 17:35 | Outpatient (CLI) | payer MEDICAID, MEDICARE | END 2021-05-21 17:36 | disposition critical access hospital (66) | LOC: EMS 17:35 | DX: R41.82 Altered mental status, unspecified (principal); E16.2 Hypoglycemia, unspecified; R06.82 Tachypnea, not elsewhere classified; Z72.89 Other problems related to lifestyle | CPT/HCPCS: A0425; A0427; A0999 ==

== ENCOUNTER 2021-05-21 17:49 | Emergency (ER) | payer MEDICAID, MEDICARE ==
--- NOTE | 2021-05-21 17:52 | ED Physician Documentation ---
PD HPI ALTERED MENTAL STATUS - Stated complaint Stated Complaint: ALOC - History obtained from History obtained from: EMS - Additional information Additional information: Brought in by ambulance for potential alcohol intoxication. Found by the side of the bed on the floor. Possible trauma but not clear. Incontinent of brown stool, no melena. Patient unable to give a history due to altered mental status... Review of Systems Unable to obtain: AMS PD PAST MEDICAL HISTORY - Past Medical History Cardiovascular: Hypertension Respiratory: None Neuro: None Endocrine/Autoimmune: Type 2 diabetes GI: None OFFICE SYSTEMS TECHNOLOGY INSTRUCTOR: None : None HEENT: None Psych: None Musculoskeletal: Osteoporosis, Scoliosis, Chronic back pain Derm: None - Past Surgical History Past Surgical History: Yes Ortho: Other /OFFICE SYSTEMS TECHNOLOGY INSTRUCTOR: Oophrectomy, Other - Present Medications Home Medications: Ambulatory Orders Medication Instructions Recorded Confirmed Metformin HCl [Glucophage Xr] 1,000 mg PO BID 11/08/12 02/06/17 glipiZIDE [Glucotrol] 10 mg PO BID 11/08/12 02/06/17 Empagliflozin [Jardiance] 10 mg PO DAILY 03/23/16 02/06/17 Albuterol Sulfate [Proair Hfa 2 puffs INH Q4H PRN 12/27/19 09/25/20 Inhaler] Lisinopril [Zestril] 20 mg PO DAILY 12/27/19 09/25/20 tiZANidine [Zanaflex] 4 mg PO TID PRN 09/25/20 09/25/20 Vancomycin [Vancocin] 125 mg PO QID 7 Days #28 cap 09/27/20 chlordiazePOXIDE [Librium] 25 mg PO Q12H 5 Days #10 cap 09/27/20 chlordiazePOXIDE [Librium] 25 mg PO BID 5 Days #10 cap 09/28/20 - Allergies Allergies/Adverse Reactions: Allergies Allergy/AdvReac Type Severity Reaction Status Date / Time No Known Drug Allergies Allergy Verified 03/17/21 15:25 - Social History Does the pt smoke?: Yes Smoking Status: Current every day smoker Does the pt drink ETOH?: Yes Does the pt have substance abuse?: No - Immunizations Immunizations are current?: No Immunizations: TDAP current <10years - POLST Patient has POLST: No POLST Status: Full Code PD ED PE NORMAL - Vitals Vital signs reviewed: Yes - General General: No acute distress, Well developed/nourished, Other (Laying in bed in no distress, she will wake with vigorous stimulus and answer very simple questions but then falls immediately back asleep.) - HEENT HEENT: PERRL (Unable to test for nystagmus due to really unable to cooperate with exam.) - Neck Neck: Supple, no meningeal sign, No bony TTP - Cardiac Cardiac: RRR, No murmur - Respiratory Respiratory: No respiratory distress, Clear bilaterally - Abdomen Abdomen: Normal bowel sounds, Soft, Non tender - Rectal Rectal: Other (Slow ooze of dark blood from the rectum) - Neuro Eye Opening: To Voice Motor: Localizes to Pain Verbal: Incomprehensible GCS Score: 10 Results - Vitals Vitals: Vital Signs - 24 hr 05/21/21 05/21/21 05/21/21 17:49 18:16 18:55 Temperature 36 C L 36.5 C 36.5 C Heart Rate 62 93 90 Respiratory 14 18 16 Rate Blood Pressure 135/40 H 90/50 L O2 Saturation 88 L 05/21/21 05/21/21 05/21/21 19:50 20:13 20:30 Temperature 36.5 C Heart Rate 106 H 102 H 96 Respiratory 22 20 Rate Blood Pressure 82/68 L 90/47 L 130/40 L O2 Saturation 96 05/21/21 05/21/21 05/21/21 20:40 21:00 23:10 Temperature 36.5 C Heart Rate 90 98 99 Respiratory 18 18 19 Rate Blood Pressure 114/98 H 95/51 L 144/44 H O2 Saturation 100 96 96 05/21/21 05/22/21 23:30 00:00 Temperature 36.5 C Heart Rate 98 96 Respiratory 23 18 Rate Blood Pressure 96/62 99/78 O2 Saturation 97 98 Oxygen O2 Source Nasal cannula Oxygen Flow Rate 2 - Labs Labs: Laboratory Tests 05/21/21 05/21/21 05/21/21 18:48 18:48 18:48 WBC 9.7 RBC 3.00 L Hgb 11.3 L Hct 35.1 L MCV 117.0 H MCH 37.7 H MCHC 32.2 RDW 14.9 Plt Count 139 MPV 9.3 Neut # (Auto) 8.5 H Lymph # (Auto) 0.8 L [place] # (Auto) 0.1 Eos # (Auto) 0.2 Baso # (Auto) 0.0 Absolute Nucleated RBC 0.02 Nucleated RBC % 0.2 Manual Slide Review Indicated WBC Morphology NORMAL APPEARANCE Platelet Estimate NORMAL (130-450,000) Platelet Morphology NORMAL APPEARANCE RBC Morph Micro Appear 2+ MACROCYTOSIS PT 13.0 H INR 1.2 Bld Gas Analysis Time Sample Site ABG pH ABG pCO2 ABG pO2 ABG HCO3 ABG Total CO2 ABG O2 Saturation ABG Base Excess Tate Test VBG pH VBG pCO2 VBG pO2 VBG HCO3 VBG Total CO2 VBG O2 Saturation VBG Base Excess O2 Delivery Device O2 Liters/Min Sodium 141 Potassium 5.5 H Chloride 97 L Carbon Dioxide 9 L* Anion Gap 35.0 H BUN 40 H Creatinine 2.4 H Estimated GFR (MDRD) 21 L Glucose 186 H Lactic Acid Calcium 7.6 L Total Bilirubin 1.5 H AST 672 H ALT 290 H Alkaline Phosphatase 93 Total Protein 5.5 L Albumin 3.3 Globulin 2.2 Albumin/Globulin Ratio 1.5 Urine Color Urine Clarity Urine pH Ur Specific [place] Urine Protein Urine Glucose (UA) Urine Ketones Urine Occult Blood Urine Nitrite Urine Bilirubin Urine Urobilinogen Ur Leukocyte Esterase Urine RBC Urine WBC Ur Squamous Epith Cells Urine Bacteria Urine Culture Comments Ethyl Alcohol 301.1 SARS-CoV-2 (PCR) Blood Type Antibody Screen Crossmatch IS Only 05/21/21 05/21/21 05/21/21 18:48 18:48 18:48 WBC RBC Hgb Hct MCV MCH MCHC RDW Plt Count MPV Neut # (Auto) Lymph # (Auto) Hemph[place] # (Auto) Eos # (Auto) Baso # (Auto) Absolute Nucleated RBC Nucleated RBC % Manual Slide Review WBC Morphology Platelet Estimate Platelet Morphology RBC Morph Micro Appear PT INR Bld Gas Analysis Time Sample Site ABG pH ABG pCO2 ABG pO2 ABG HCO3 ABG Total CO2 ABG O2 Saturation ABG Base Excess Tate Test VBG pH VBG pCO2 VBG pO2 VBG HCO3 VBG Total CO2 VBG O2 Saturation VBG Base Excess O2 Delivery Device O2 Liters/Min Sodium Potassium Chloride Carbon Dioxide Anion Gap BUN Creatinine Estimated GFR (MDRD) Glucose Lactic Acid > 10.0 H* Calcium Total Bilirubin AST ALT Alkaline Phosphatase Total Protein Albumin Globulin Albumin/Globulin Ratio Urine Color YELLOW Urine Clarity CLEAR Urine pH 5.5 Ur Specific [place] 1.025 Urine Protein TRACE Urine Glucose (UA) NEGATIVE Urine Ketones 15 H Urine Occult Blood NEGATIVE Urine Nitrite NEGATIVE Urine Bilirubin NEGATIVE Urine Urobilinogen 0.2 (NORMAL) Ur Leukocyte Esterase NEGATIVE Urine RBC None Seen Urine WBC 0-3 Ur Squamous Epith Cells FEW Squamous Urine Bacteria Many H Urine Culture Comments NOT INDICATED Ethyl Alcohol SARS-CoV-2 (PCR) Blood Type O NEGATIVE Antibody Screen NEGATIVE Crossmatch IS Only See Detail 05/21/21 05/21/21 05/21/21 18:48 20:45 21:14 WBC RBC Hgb Hct MCV MCH MCHC RDW Plt Count MPV Neut # (Auto) Lymph # (Auto) [place] # (Auto) Eos # (Auto) Baso # (Auto) Absolute Nucleated RBC Nucleated RBC % Manual Slide Review WBC Morphology Platelet Estimate Platelet Morphology RBC Morph Micro Appear PT INR Bld Gas Analysis Time 2054 Sample Site A-LINE ABG pH 6.85 L* ABG pCO2 30 L ABG pO2 128 H ABG HCO3 5.1 L ABG Total CO2 6.0 L* ABG O2 Saturation 96 ABG Base Excess -28.4 L Tate Test NOT APPLICABLE VBG pH 6.857 L VBG pCO2 48.8 VBG pO2 44.2 VBG HCO3 8.5 L VBG Total CO2 10.0 L VBG O2 Saturation 57.8 L VBG Base Excess -25.5 L O2 Delivery Device NASAL CANNULA O2 Liters/Min 2.00 Sodium Potassium Chloride Carbon Dioxide Anion Gap BUN Creatinine Estimated GFR (MDRD) Glucose Lactic Acid Calcium Total Bilirubin AST ALT Alkaline Phosphatase Total Protein Albumin Globulin Albumin/Globulin Ratio Urine Color Urine Clarity Urine pH Ur Specific [place] Urine Protein Urine Glucose (UA) Urine Ketones Urine Occult Blood Urine Nitrite Urine Bilirubin Urine Urobilinogen Ur Leukocyte Esterase Urine RBC Urine WBC Ur Squamous Epith Cells Urine Bacteria Urine Culture Comments Ethyl Alcohol SARS-CoV-2 (PCR) NOT DETECTED Blood Type Antibody Screen Crossmatch IS Only 05/21/21 05/21/21 05/21/21 21:14 21:14 21:14 WBC RBC Hgb 14.4 Hct 44.8 MCV MCH MCHC RDW Plt Count MPV Neut # (Auto) Lymph # (Auto) [place] # (Auto) Eos # (Auto) Baso # (Auto) Absolute Nucleated RBC Nucleated RBC % Manual Slide Review WBC Morphology Platelet Estimate Platelet Morphology RBC Morph Micro Appear PT INR Bld Gas Analysis Time Sample Site ABG pH ABG pCO2 ABG pO2 ABG HCO3 ABG Total CO2 ABG O2 Saturation ABG Base Excess Tate Test VBG pH VBG pCO2 VBG pO2 VBG HCO3 VBG Total CO2 VBG O2 Saturation VBG Base Excess O2 Delivery Device O2 Liters/Min Sodium 144 Potassium 5.5 H Chloride 95 L Carbon Dioxide 11 L* Anion Gap 38.0 H BUN 40 H Creatinine 2.3 H Estimated GFR (MDRD) 22 L Glucose 116 H Lactic Acid > 10.0 H* Calcium 8.0 L Total Bilirubin AST ALT Alkaline Phosphatase Total Protein Albumin Globulin Albumin/Globulin Ratio Urine Color Urine Clarity Urine pH Ur Specific [place] Urine Protein Urine Glucose (UA) Urine Ketones Urine Occult Blood Urine Nitrite Urine Bilirubin Urine Urobilinogen Ur Leukocyte Esterase Urine RBC Urine WBC Ur Squamous Epith Cells Urine Bacteria Urine Culture Comments Ethyl Alcohol SARS-CoV-2 (PCR) Blood Type Antibody Screen Crossmatch IS Only 05/21/21 05/21/21 05/21/21 22:03 22:12 23:15 WBC RBC Hgb Hct MCV MCH MCHC RDW Plt Count MPV Neut # (Auto) Lymph # (Auto) [place] # (Auto) Eos # (Auto) Baso # (Auto) Absolute Nucleated RBC Nucleated RBC % Manual Slide Review WBC Morphology Platelet Estimate Platelet Morphology RBC Morph Micro Appear PT INR Bld Gas Analysis Time 2325 Sample Site A-LINE ABG pH 6.94 L* ABG pCO2 26 L ABG pO2 134 H ABG HCO3 5.6 L ABG Total CO2 6.4 L* ABG O2 Saturation 97 ABG Base Excess -25.4 L Tate Test NOT APPLICABLE VBG pH VBG pCO2 VBG pO2 VBG HCO3 VBG Total CO2 VBG O2 Saturation VBG Base Excess O2 Delivery Device NASAL CANNULA O2 Liters/Min 2.00 Sodium Potassium Chloride Carbon Dioxide Anion Gap BUN Creatinine Estimated GFR (MDRD) Glucose Lactic Acid > 10.0 H* Calcium Total Bilirubin AST ALT Alkaline Phosphatase Total Protein Albumin Globulin Albumin/Globulin Ratio Urine Color Urine Clarity Urine pH Ur Specific [place] Urine Protein Urine Glucose (UA) Urine Ketones Urine Occult Blood Urine Nitrite Urine Bilirubin Urine Urobilinogen Ur Leukocyte Esterase Urine RBC Urine WBC Ur Squamous Epith Cells Urine Bacteria Urine Culture Comments Ethyl Alcohol SARS-CoV-2 (PCR) Blood Type Cancelled Antibody Screen Cancelled Crossmatch IS Only See Detail - Rads (name of study) Single view chest x-ray shows clear lungs with right IJ CVC in SVC. No pneumothorax Radiology: EMP read contemporaneously Procedures - General procedure General procedure: She was difficult for IV access. Despite having a central line in place we needed a little more access and I personally placed a long 22-gauge ultrasound- guided guided IV in the left cephalic vein using real-time ultrasound guidance. Right femoral A-LIne: Prepped R wrist, unable to palpate Radial Pulse. Prepped R groin: Femoral A line placed and sutured in place. - Central Line Central Line Preparation: Unable to obtain consent Central line location: Right IJ Central line type: Triple lumen Central line aftercare: Chlorhexidine disc placed, Secured, Placement confirmed, No pneumothorax, No complications, Bundle checklist complete, Pt tolerated well PD MEDICAL DECISION MAKING - ED course Complexity details: d/w family (Aidan her by phone, detox 2 weeks ago, karen for 1 week) ED course: 60-year-old woman presents by ambulance for altered mental status, presumed related to alcohol intoxication. No clear evidence of trauma but she was found on the ground so CT of the head and cervical spine was ordered. Quickly it was noted that she was hemodynamically unstable with very low blood pressures down to 30/20 and she has dark red blood coming out of her rectum. Central line was expeditiously placed and uncrossed matched blood was ordered. Given her history of alcoholism presume variceal source and also ordered Protonix bolus and drip, octreotide bolus and drip, IV Rocephin after blood cultures and labs were ordered. Subsequently placed an arterial line and noted her blood gas to be 6.84/30/127. Given this, bicarbonate drip was started. Repeat labs were ordered. On the ABG her lactate is greater than 14. She was tentatively excepted by Dr. Martinez to the MICU with [facility] approximately 2105, they do not have a bed immediately available and they will call me back. While waiting for bed at [facility], Prov called back and can make an ICU spot for her. - Critical Care Time(min): 95 Time Includes: Direct patient care, Review records, Reassess patient, Document care, Coordinate care, Medical consult, Family consult for tx dec Data interpretation: Labs, Pulse ox Procedures included in critical care time: Peripheral IV Procedures excluded from critical care time: Central IV, Arterial cannulation, EKG Departure - Departure Disposition: 02 Transfer Acute Care Hosp Clinical Impression: Shock, Metabolic acidosis, Gastrointestinal hemorrhage, OBDULIA (acute kidney injury), Alcoholism Condition: Critical Discharge Date/Time: 05/22/21 00:12
[2021-05-21] MEDS: OCTREOTIDE 500 MCG in SODIUM CHLORIDE 0.9% 100ML 95 ML IV STA (18:45)
--- NOTE | 2021-05-21 18:58 | XRAY Report ---
PROCEDURE: Chest for Line Placement INDICATIONS: LINE PLACEMENT TECHNIQUE: One view of the chest was acquired. COMPARISON: 09/24/2020 FINDINGS: Surgical changes and devices: Right internal jugular central venous catheter tip is in the region of SVC.. Lungs and pleura: No pleural effusions or pneumothorax. Lungs are clear. Mediastinum: Mediastinal contours appear normal. Heart size is normal. Bones and chest wall: No suspicious bony lesions. Overlying soft tissues appear unremarkable. IMPRESSION: Right jugular central venous catheter tip is in SVC. No focal infiltrate, pleural effusion or pneumot horax. Reviewed by: Doc Olvera MD on 05/21/2021 6:57 PM PDT Approved by: Doc Olvera MD on 05/21/2021 6:57 PM PDT Station ID: [id number]
[2021-05-21 19:00] LABS: BASOPHILS % (AUTO) 0.3 %; EOSINOPHILS # (AUTO) 0.2 10^3/uL (0.0-0.7); EOSINOPHILS % (AUTO) 2.1 %; HCT - HEMATOCRIT 35.1 % (37.0-47.0); HGB - HEMOGLOBIN 11.3 g/dL (12.0-16.0); LYMPHOCYTES # (AUTO) 0.8 10^3/uL (1.5-3.5); LYMPHOCYTES % (AUTO) 8.6 %; MEAN CORPUSCULAR HEMOGLOBIN 37.7 pg (27.0-31.0); MEAN CORPUSCULAR HGB CONC 32.2 g/dL (32.0-36.0); MEAN PLATELET VOLUME 9.3 fL (7.9-10.8); MONOCYTES # (AUTO) 0.1 10^3/uL (0.0-1.0); NEUTROPHILS # (AUTO) 8.5 10^3/uL (1.5-6.6); NEUTROPHILS % (AUTO) 87.7 %; NRBC ABSOLUTE COUNT (AUTO) 0.02 x10^3/uL; NUCLEATED RED BLOOD CELLS AUTO 0.2 /100WBC; PLT - PLATELET COUNT 139 10^3/uL (130-450); RED CELL DISTRIBUTION WIDTH 14.9 % (12.0-15.0); WHITE BLOOD COUNT 9.7 x10^3/uL (4.8-10.8)
[2021-05-21 19:06] LABS: INR 1.2 (0.8-1.2)
[2021-05-21 19:20] LABS: LACTIC ACID, VENOUS > 10.0 mmol/L (0.5-2.2)
[2021-05-21 19:23] LABS: PLATELET ESTIMATE, MANUAL NORMAL (130-450,000) (NORMAL); PLATELET MORPHOLOGY NORMAL APPEARANCE (NORMAL); RBC MORPHOLOGY (MULTIPLE) 2+ MACROCYTOSIS (NORMAL); SLIDE REVIEW? Indicated; WBC MORPHOLOGY (MULTIPLE) NORMAL APPEARANCE (NORMAL)
[2021-05-21 19:30] LABS: BILIRUBIN,URINE NEGATIVE (NEGATIVE); GLUCOSE, URINE (UA) NEGATIVE (NEGATIVE); KETONES,URINE (UA) 15 mg/dL (NEGATIVE); LEUKOCYTE ESTERASE, URINE NEGATIVE (NEGATIVE); NITRITE,URINE NEGATIVE (NEGATIVE); OCCULT BLOOD,URINE NEGATIVE (NEGATIVE); PH,URINE 5.5 PH (5.0-7.5); PROTEIN,URINE TRACE mg/dL (NEGATIVE); UROBILINOGEN,URINE 0.2 (NORMAL) E.U./dL (NORMAL)
[2021-05-21 19:31] LABS: ALBUMIN 3.3 g/dL (3.2-5.5); ALBUMIN/GLOBULIN RATIO 1.5 (1.0-2.2); BILIRUBIN,TOTAL 1.5 mg/dL (0.2-1.0); CALCIUM 7.6 mg/dL (8.5-10.3); CREATININE 2.4 mg/dL (0.4-1.0); ETOH - ETHANOL 301.1 mg/dL; POTASSIUM 5.5 mmol/L (3.5-5.0); TOTAL PROTEIN 5.5 g/dL (6.7-8.2)
[2021-05-21 19:33] LABS: CLARITY,URINE CLEAR (CLEAR)
[2021-05-21 19:49] LABS: BACTERIA,URINE Many /HPF (None Seen); RBC,URINE None Seen /HPF (0-5); SQUAMOUS EPITHELIAL CELL,UR FEW Squamous (<= Few); WBC,URINE 0-3 /HPF (0-5)
--- NOTE | 2021-05-21 19:52 | CT Report ---
PROCEDURE: CERVICAL SPINE WO INDICATIONS: head inj TECHNIQUE: Noncontrast 3 mm thick sections acquired from the skull base to the T4 level. Sagittal and coronal r eformats were then constructed. For radiation dose reduction, the following was used: automated exp osure control, adjustment of mA and/or kV according to patient size. COMPARISON: 02/03/2021. FINDINGS: Image quality: Excellent. Bones: No fractures or dislocations. Minimal anterolisthesis of C3 on C4 and C4 on C5 and minimal r etrolisthesis of C5 on C6 is seen. Degenerative endplate changes, loss of disc height and bilateral f acet hypertrophic changes are seen throughout cervical spine more prominent at C5-6 and C6-7 levels. Visualized superior ribs are intact. Soft tissues: Prevertebral soft tissues are normal in thickness. No paravertebral hematomas. No ap ical pneumothoraces. IMPRESSION: 1. No acute cervical spine fracture or dislocation. 2. Degenerative disc disease throughout cervical spine not significantly changed from prior study. Reviewed by: Doc Olvera MD on 05/21/2021 7:50 PM PDT Approved by: Doc Olvera MD on 05/21/2021 7:50 PM PDT Station ID: [id number]
--- NOTE | 2021-05-21 19:53 | CT Report ---
PROCEDURE: HEAD WO INDICATIONS: head injury TECHNIQUE: Noncontrast 4.5 mm thick angled axial sections acquired from the foramen magnum to the vertex. For r adiation dose reduction, the following was used: automated exposure control, adjustment of mA and/or kV according to patient size. COMPARISON: 02/03/2021 FINDINGS: Image quality: Excellent. CSF spaces: Basal cisterns are patent. No extra-axial fluid collections. The ventricles are symmet liset in size and shape. Brain: No intracranial bleeds or masses. There is cerebral volume loss for age, with resultant vent ricular and sulcal prominence. There are periventricular and deep white matter chronic small vessel ischemic changes. There is intracranial internal carotid artery atherosclerosis. Skull and face: Calvarium and visualized facial bones appear intact, without suspicious lesions. Sinuses: Visualized sinuses and mastoids are clear. IMPRESSION: No CT evidence of acute intracranial abnormalities. No acute skull fracture. Reviewed by: Doc Olvera MD on 05/21/2021 7:52 PM PDT Approved by: Doc Olvera MD on 05/21/2021 7:52 PM PDT Station ID: [id number]
[2021-05-21] MEDS: cefTRIAXone 2 GM in SODIUM CHLORIDE 0.9% MINIBAG 100 ML IV STA (20:05)
[2021-05-21] MEDS: PANTOPRAZOLE 80 MG in SODIUM CHLORIDE 0.9% 100ML 100 ML IV STA ×2 (20:45→21:28)
[2021-05-21 20:57] LABS: ABG BASE EXCESS -28.4 mmol/L (-2.0-3.0); ABG HCO3 5.1 mmol/L (22.0-26.0); ABG OXYGEN SATURATION 96 % (94-98); ABG PCO2 30 mmHg (34-45); ABG PO2 128 mmHg (80-100)
[2021-05-21 20:59] LABS: ABG PH 6.85 (7.35-7.45)
[2021-05-21 21:20] LABS: HCT - HEMATOCRIT 44.8 % (37.0-47.0); HGB - HEMOGLOBIN 14.4 g/dL (12.0-16.0); VBG BASE EXCESS -25.5 mmol/L (-2 - +2); VBG HCO3 8.5 mmol/L (23-28); VBG OXYGEN SATURATION 57.8 % (60-80); VBG PCO2 48.8 mmHg (41-51); VBG PH 6.857 (7.31-7.41); VBG PO2 44.2 mmHg (25-47)
[2021-05-21] MEDS ORDERED: SODIUM BICARBONATE 8.4% 50 MEQ/50 ML VIAL ONE (21:23)
[2021-05-21] MEDS: SODIUM BICARBONATE 150 MEQ in DEXTROSE 5% 1,000 ML IV SCH (21:24)
[2021-05-21 21:34] LABS: CREATININE 2.3 mg/dL (0.4-1.0); POTASSIUM 5.5 mmol/L (3.5-5.0)
[2021-05-21] MEDS: SODIUM CHLORIDE 0.9% 1,564.89 ML IV STA (21:41)
[2021-05-21] MEDS: OCTREOTIDE 100 MCG/ML VIAL IVP STA (21:42)
[2021-05-21 22:19] LABS: LACTIC ACID, VENOUS > 10.0 mmol/L (0.5-2.2)
[2021-05-21] MEDS: LIDOCAINE PATCH 5% TOP STA (23:06)
[2021-05-21 23:27] LABS: ABG BASE EXCESS -25.4 mmol/L (-2.0-3.0); ABG HCO3 5.6 mmol/L (22.0-26.0); ABG OXYGEN SATURATION 97 % (94-98); ABG PCO2 26 mmHg (34-45); ABG PO2 134 mmHg (80-100)
[2021-05-21 23:28] LABS: ABG PH 6.94 (7.35-7.45)
[2021-05-21 23:29] LABS: ABG TCO2 6.4 MMOL/L (21.0-29.0)
[2021-05-22 00:05] VITALS: BP 99/78
--- NOTE | 2021-05-22 00:22 | ED Physician Documentation ---
ED Addendum - Addendum Addendum: Patient signed out to me by Dr. Camacho. Patient is awaiting transfer to a facility for higher level of care for treatment of a GI bleed causing Shock.Remains on multiple medications including Levophed for hypotension. [id number] - Discussed with deliver driver at [facility], Dr. Jimenez Who accepts the patient for transfer.
== END 2021-05-22 00:12 | disposition short-term general hospital (02) ==
LOC: EDUNIT# → ED 17:49
DX: K92.1 Melena (principal); R57.9 Shock, unspecified; E11.10 Type 2 diabetes mellitus with ketoacidosis without coma; N17.9 Acute kidney failure, unspecified; Z79.84 Long term (current) use of oral hypoglycemic drugs; F17.200 Nicotine dependence, unspecified, uncomplicated; Z20.822 Contact with and (suspected) exposure to COVID-19; F10.20 Alcohol dependence, uncomplicated
CPT/HCPCS: 36415; 36430; 36556; 36620; 70450; 72125; 80048; 80053; 81001; 82803; 83605; 85014; 85018; 85025; 85610; 86850; 86900; 86901; 86920; 87040; 87635; 96365; 96366; 96368; 96375; 96376; 99285; 99291; 99292; A9270; G0480; J2354; P9016; 80320; 87086